=== PATIENT | male | born 1930 | race Hispanic/Latino ===

== ENCOUNTER 2016-06-05 17:36 | Observation (INO) | payer MEDICARE, BC ==
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
[2016-06-05] MEDS ORDERED: Sodium Chloride 0.9% 1,000 ML IV STA (18:05)
[2016-06-05 18:30] LABS: ADD MANUAL DIFF? NO
[2016-06-05 18:53] LABS: ALB/GLOB RATIO 1.2 (1.1-1.8); ALKALINE PHOSPHATASE 93 U/L (38-133); ALT/SGPT 27 U/L (7-56); AST/SGOT 36 U/L (15-59); BILIRUBIN,TOTAL 0.5 mg/dL (0.2-1.3); BLOOD UREA NITROGEN 27 mg/dL (7-21); CALCIUM 8.9 mg/dL (8.4-10.5); CARBON DIOXIDE 27 mmol/L (21-33); CHLORIDE 100 mmol/L (98-107); GFR AFRICAN-AMERICAN > 60; GLUCOSE,RANDOM 89 mg/dL (70-110); POTASSIUM 3.7 mmol/L (3.6-5.0); SODIUM 140 mmol/L (132-148); TOTAL PROTEIN 7.1 g/dL (5.8-8.3)
[2016-06-05 18:59] LABS: BASO # 0.02 K/mm3 (0.0-2.0); BASO % 0.2 % (0.0-3.0); EOS # 0.1 (0.0-0.7); EOS % 0.8 % (1.5-5.0); GRAN # 5.47 (1.4-6.5); GRAN % 62.9 % (50.0-68.0); HEMATOCRIT 42.3 % (42.0-52.0); LYMPH # 2.3 (1.2-3.4); LYMPH % 26.6 % (22.0-35.0); MEAN CELL VOLUME 93.4 fL (80.0-105.0); MEAN CORPUSCULAR HEMOGLOBIN 31.1 pg (25.0-35.0); MEAN CORPUSCULAR HGB CONC 33.3 g/dl (31.0-37.0); MEAN PLATELET VOLUME 10.3 fl (7.0-11.0); MONO # 0.8 (0.1-0.6); MONO % 9.5 % (1.0-6.0); PLATELET COUNT 207 10^3/uL (120.0-450.0); RED CELL DISTRIBUTION WIDTH 14.2 % (11.5-14.5); WHITE BLOOD COUNT 8.7 10^3/ul (4.5-11.0)
[2016-06-05 19:16] LABS: TROPONIN I < 0.01 ng/mL
[2016-06-05 19:17] LABS: PARTIAL THROMBOPLASTIN TIME 44.9 Seconds (23.7-30.8)
[2016-06-05 19:22] LABS: INR 4.51 (0.93-1.08)
[2016-06-05] MEDS ORDERED: Iohexol 350 MG/100 ML VIAL ONE (19:28)
[2016-06-05] MEDS ORDERED: Oxycodone/Acetaminophen 2.5/325 mg Tab PO PRN (21:29)
[2016-06-06 05:31] VITALS: O2SAT 95
[2016-06-06 07:25] LABS: ADD MANUAL DIFF? NO
[2016-06-06 07:30] LABS: BASO # 0.01 K/mm3 (0.0-2.0); BASO % 0.2 % (0.0-3.0); EOS # 0.1 (0.0-0.7); EOS % 1.7 % (1.5-5.0); GRAN # 3.55 (1.4-6.5); GRAN % 59.1 % (50.0-68.0); HEMATOCRIT 40.3 % (42.0-52.0); LYMPH # 1.8 (1.2-3.4); MEAN CELL VOLUME 92.9 fL (80.0-105.0); MEAN CORPUSCULAR HEMOGLOBIN 31.3 pg (25.0-35.0); MEAN CORPUSCULAR HGB CONC 33.7 g/dl (31.0-37.0); MEAN PLATELET VOLUME 9.7 fl (7.0-11.0); MONO # 0.5 (0.1-0.6); PLATELET COUNT 170 10^3/uL (120.0-450.0); RED CELL DISTRIBUTION WIDTH 14.4 % (11.5-14.5)
[2016-06-06 07:54] LABS: INR 4.26 (0.93-1.08)
--- NOTE | 2016-06-06 07:54 | CT ---
PROCEDURE: CT Abdomen and Pelvis with contrast HISTORY: abd pain COMPARISON: 09/02/2014 TECHNIQUE: Contrast dose: 100 mL Omnipaque Radiation dose: Total exam DLP = 465.83 mGy-cm. FINDINGS: LOWER THORAX: Permanent pacemaker. LIVER: Normal size and contour. Scattered nonspecific low-attenuation lesions, 12 mm. No biliary dilatation. GALLBLADDER AND BILE DUCTS: Unremarkable. 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 This is poorly evident on prior noncontrast CT. Mild dilatation of the short segment distal pancreatic duct in tail. No other pancreatic mass. SPLEEN: Multiple hypervascular lesions within spleen, nonspecific. Please note that the examination is obtained during the arterial phase of contrast enhancement and this may be an artifact. Additional evaluation with contrast-enhanced CT during portal phase of enhancement is advised to evaluate for possible hypervascular splenic masses versus artifact. ADRENALS: Unremarkable. No mass. KIDNEYS AND URETERS: Multiple bilateral renal cysts, largest right lower pole, 10 cm. VASCULATURE: No calculus or hydronephrosis. BOWEL: Sigmoid diverticulosis. Diverticulosis of the ascending colon and cecum. No evidence of diverticulitis. Questionable thin-walled gastric diverticulum distended up to 6 x 10 mm on current examination. Consider further evaluation with endoscopy or upper GI series. This arises from the fundal region of the stomach. APPENDIX: Normal appendix. PERITONEUM: Unremarkable. No free fluid. No free air. LYMPH NODES: Unremarkable. No enlarged lymph nodes. BLADDER: Unremarkable. REPRODUCTIVE: Normal prostate. BONES: Severe multilevel lumbar degenerative disc disease. No fracture. OTHER FINDINGS: None. 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 Followup advised with contrast-enhanced CT. Mild dilatation of pancreatic duct in pancreatic tail. Multiple hypervascular splenic lesions. Possible artifact due to arterial phase of enhancement. Recommend re-evaluation with portal venous contrast-enhanced imaging. Possible large gastric diverticulum arising from gastric fundus. Recommend further evaluation with endoscopy or upper GI series. Large bilateral renal cysts. Diverticulosis without evidence of diverticulitis. . Additional minor findings as above. Preliminary interpretation of this examination was reported by Rollbar at 8:02 p.m. on 06/05/2016.. There is discordance of this report with the preliminary interpretation. Pancreatic tail cystic mass was not described in the rib preliminary report of this examination. Question is raised of gastric diverticulum, not discussed in the preliminary report of this examination.
--- NOTE | 2016-06-06 08:29 | RAD ---
HISTORY: cough COMPARISON: 03/06/2015 FINDINGS: LUNGS: No active pulmonary disease. PLEURA: No significant pleural effusion identified, no pneumothorax apparent. CARDIOVASCULAR: Permanent pacemaker OSSEOUS STRUCTURES: No significant abnormalities. VISUALIZED UPPER ABDOMEN: Normal. OTHER FINDINGS: None. IMPRESSION: No active disease.
[2016-06-06 08:35] LABS: ALB/GLOB RATIO 1.1 (1.1-1.8); ALKALINE PHOSPHATASE 104 U/L (38-133); ALT/SGPT 32 U/L (7-56); AST/SGOT 31 U/L (15-59); BILIRUBIN,TOTAL 0.5 mg/dL (0.2-1.3); BLOOD UREA NITROGEN 20 mg/dL (7-21); CALCIUM 8.3 mg/dL (8.4-10.5); CARBON DIOXIDE 25 mmol/L (21-33); CHLORIDE 106 mmol/L (95-110); GFR AFRICAN-AMERICAN > 60; GLUCOSE,RANDOM 85 mg/dL (70-110); POTASSIUM 3.9 mmol/L (3.6-5.0); SODIUM 140 mmol/L (132-148); TOTAL PROTEIN 6.5 g/dL (5.8-8.3)
[2016-06-06] MEDS ORDERED: Levothyroxine 125 MCG TAB PO SCH (10:00)
--- NOTE | 2016-06-06 10:25 | HP ---
The patient was seen in the Emergency Room with rectal bleeding. The patient had abdominal pain. He presented in the Emergency Room with these complaints. The patient is 86 years of age, a white male . He has been seen in this hospital a couple of years ago for unrelated condition, possible syncope. ALLERGIES: EPINEPHRINE. The patient is a full code. PAST MEDICAL HISTORY: Tremors, has history of atrial fibrillation, mitral valve regurgitation. The patient has had glaucoma, history of anticoagulation with Coumadin. The patient also gives a history of hypothyroidism. The patient gives a history of hyperlipidemia. PHYSICAL EXAMINATION: GENERAL: The patient is seen. He is comfortable. He has no acute discomfort at this time. HEAD: Normocephalic. NECK: The thyroid is clinically not enlarged. The carotid pulses are present. The patient's neck d oes not show any lymphadenopathy. LUNGS: Trachea is central. Breath sounds vesicular. No adventitious sounds are heard. CHEST: The breast is within normal limit. Axilla is clear. HEART: Atrial fibrillation with moderate ventricular response. ABDOMEN: Soft. No tenderness. No masses. RECTAL: The patient has no evidence of any bleeding at this time, but patient has questionable hemor rhoids clinically. CENTRAL NERVOUS SYSTEM: The patient is conscious, rational, oriented. Cranial nerves are intact fro m II-XII. The patient's motor and sensory functions are within normal limits. His ambulation is nor mal. The reflexes are normal. BLOOD WORK: The hemoglobin is 13.6. The patient's PT/INR is elevated. The INR was 4.26. The patie nt is on Coumadin as an outpatient. The patient's chemistry: Sodium is 140, GFR is within normal li mits, his calcium is 8.3. No other abnormalities. Chest x-ray is clear. The patient's EKG shows atrial fibrillation. The patient's Coumadin is withheld at this time. The patient will be evaluated by interpreter and translator . The patient, on interrogation, is divulging the fact that he has an appointment at [facility] for an echocardiogram and a carotid Doppler. The patient is also waiting to get prothrombin t nida and INR done, and he does have an consumer education specialist and a eyewear consultant, who evaluates the patient. In past, the patient has had, within a year, a colonoscopy without any pathology. The patient has his tory of possible diverticulosis. The present situation, the patient is considering leaving [facility] and following up with his primary care physician and going for the necessary tests ordered for hi m by his primary care physician. We would agree with the plan. If possible, we will have a gastroen terologist examine the patient prior to discharge. We will give the patient a slip to have a prothro mbin time test tomorrow. MEDICATIONS: Consist of Colace. The patient has amiodarone 200 mg daily, metoprolol 25 mg daily. T he patient is on pantoprazole 40 mg daily, Synthroid 125 mcg daily, Zetia 10 mg daily. The patient is on a heart healthy diet. His condition is clinically stable. Discharge is imminent t miles. The patient will be followed up by his primary care physician. Prabhakar Smallwood MD cc: [phone] TT: 06/06/2016 10:25:05 en
[2016-06-06 12:44] VITALS: BP 132/84; PULSE 90; RESP 20; TEMP 97.5
--- NOTE | 2016-06-06 14:39 | CON ---
DATE: 06/06/2016 REQUESTING PHYSICIAN: Dr. Coats. REASON FOR CONSULTATION: I have been asked to see this 86-year-old male who was admitted to the hosp ital with a 1-day history of rectal bleeding. The patient states that he saw some bright red blood a fter wiping his anus after a bowel movement. There is no blood with the bowel movement. Routine blo od work shows the patient to have an elevated PT/INR of 46.0 and 4.26. The patient last had a colono scopy about a year ago with Dr. Claudia Viera at [facility]. CT scan of the abdom en and pelvis performed here in the hospital revealed diverticulosis of the left colon, large gastric diverticulum as well as a cyst in the tail of the pancreas with some dilatation of the pancreatic du ct. This cyst measured 10 mm and is suggestive of an IPMN. Again, there is some mild dilatation of the distal pancreatic duct. The patient has not had any further rectal bleeding since his hospitaliz ation. He admits to occasional lower abdominal cramps over the last several days. PAST MEDICAL HISTORY: Notable for atrial fibrillation, mitral regurgitation, hypothyroidism, diverti culosis, hyperlipidemia, glaucoma. SOCIAL HISTORY: The patient denies cigarette smoking or alcohol use. FAMILY HISTORY: Noncontributory. REVIEW OF SYSTEMS: A 14-point review of systems is notable for 1 episode of rectal bleeding and lowe r abdominal cramps. PHYSICAL EXAMINATION: GENERAL: Well-developed male lying in bed, in no acute distress. VITAL SIGNS: Reveal temperature of 97.6, heart rate of 100, blood pressure 133/79. HEENT: Reveals sclerae to be white, conjunctivae pink. NECK: Supple. CHEST: Reveals lungs to be clear. HEART: Reveals an irregularly irregular rate. There is a II/ systolic murmur. ABDOMEN: Soft, nontender. EXTREMITIES: Show no edema. RECTAL: Shows the presence of a left lateral external hemorrhoid. There is no blood in the rectal v oracio. There is no mass. LABORATORY DATA: Reveal normal electrolytes. PT is 46, INR 4.26. CBC reveals hemoglobin 13.6, whit e blood cell count 6, platelet count of 170,000. His hemoglobin is stable over the last 12 hours. Again, CT scan of the abdomen and pelvis shows a left-sided colonic diverticulosis, a 6 x 10 cm gastr ic diverticulum, a 10 mm pancreatic cyst with slightly dilated pancreatic duct most likely representi ng an IPMN. IMPRESSION: This is an 86-year-old male with atrial fibrillation, on Coumadin, with 1 episode of bl ood seen after wiping his anus after a bowel movement, with coagulopathy. His PT in the 40s and his INR is in the 4.26 range. He has not had any further bleeding. RECOMMENDATIONS: 1. The patient has been instructed to follow up with his log rafter, Dr. 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 2. He is to follow up with the Coumadin clinic with his digital traffic coordinator, Dr. Norris Ventura. He has been instructed to hold his Coumadin for the next 5 days. No further GI workup is planned at this time. The patient has been instructed to watch closely for any signs of bleeding. Raj Sam MD cc: [phone] TT: 06/06/2016 14:38:21 Confirmation # [id number] Dictation # [id number] mn
--- NOTE | 2016-06-06 15:43 | CARD ---
APPROVED REPORT EKG Measurement Heart [id number] SC 104P [id number] <Conclusion> Electronic ventricular pacemaker
== END 2016-06-06 14:18 | disposition home or self-care (01) ==
LOC: ED 17:36 → ERH 20:05 → INTOOBSV 20:05 → 2RNO 22:54
PROVIDERS: ADMIT Internal Medicine; ATTEND Internal Medicine
DX: K62.5 Hemorrhage of anus and rectum (principal); I48.91 Unspecified atrial fibrillation; I34.0 Nonrheumatic mitral (valve) insufficiency; R25.1 Tremor, unspecified; E03.9 Hypothyroidism, unspecified; E78.5 Hyperlipidemia, unspecified; Z79.01 Long term (current) use of anticoagulants; K57.30 Diverticulosis of large intestine without perforation or abscess without bleeding; K59.00 Constipation, unspecified; I10 Essential (primary) hypertension; R79.1 Abnormal coagulation profile
CPT/HCPCS: 36415; 71010; 74177; 80053; 82550; 83615; 84484; 85025; 85610; 85730; 86850; 86900; 93005; 96361; 96374; 99285; C9113; G0378; J7040; Q9967

== ENCOUNTER 2016-08-13 01:21 | Emergency (ER) | payer MEDICARE, BC ==
[2016-08-13 01:31] VITALS: BMI 15.4
--- NOTE | 2016-08-13 01:41 | ED PDOC ---
Arrival/HPI - General Chief Complaint: Trauma Time Seen by Provider: 08/13/16 01:27 Historian: Patient - History of Present Illness Narrative History of Present Illness (Text): 08/13/16 01:44 An 86 year old male, whose past medical history includes hypertension, Atrial fibrillation and pacemaker, is brought to the emergency department by EMS after falling on his side complaining of left hip and left knee pain an hour ago. Patient reports turning his head today and had a sudden episode of vertigo for about 2 minutes, occurred a few times today. Patient reported saw a doctor today in [place] and a prescription for his vertigo was called into pharmacy but he has not picked it up yet. Patient states that his fall was either mechanical or from the vertigo and denies any lightheadedness or chest pain. Patient notes he hit his head, but currently has no pain. Patient denies any other pain, knee or hip numbness or any other complaints at this time. Time/Duration: 1 hour Symptom Onset: Sudden Symptom Course: Unchanged Activities at Onset: Rest Past Medical History - Provider Review Nursing Documentation Reviewed: Yes - Infectious Disease Hx of Infectious Diseases: None - Tetanus Immunization Tetanus Immunization: Unknown - Cardiac Hx Cardiac Disorders: Yes Hx Atrial Fibrillation: Yes Hx Cardiac Arrhythmia: Yes (a fib) Hx Hypertension: Yes Hx Pacemaker: Yes Other/Comment: EJ SHOWED MVR. EF: 45% - Pulmonary Hx Respiratory Disorders: No - Neurological Hx Neurological Disorder: Yes Hx Dizziness: Yes Hx Transient Ischemic Attacks (TIA): Yes Other/Comment: lumbAr stenosis,SYNCOPE - HEENT Hx HEENT Disorder: Yes Hx Cataracts: Yes Hx Deafness: Yes (rt ear) Hx Glaucoma: Yes (surgery/RIGHT) - Renal Hx Renal Disorder: No - Endocrine/Metabolic Hx Endocrine Disorders: Yes Hx Hypothyroidism: Yes - Hematological/Oncological Hx Blood Disorders: Yes Hx Cancer: Yes (PROSTATE) - Integumentary Hx Dermatological Disorder: Yes Hx Psoriasis: Yes - Musculoskeletal/Rheumatological Hx Falls: Yes - Gastrointestinal Hx Gastrointestinal Disorders: Yes Hx Diverticulitis: Yes - Genitourinary/Gynecological Hx Genitourinary Disorders: Yes Hx Prostate Problems: Yes Other/Comment: prostate ca - Psychiatric Hx Depression: No Hx Emotional Abuse: No Hx Physical Abuse: No Hx Substance Use: No - Past Surgical History Past Surgical History: No Previous - Surgical History Other/Comment: CATARACT SURGERY AND RIGHT GLAUCOMA SX - Anesthesia Hx Anesthesia: Yes Hx Anesthesia Reactions: No Hx Malignant Hyperthermia: No - Suicidal Assessment Feels Threatened In Home Enviroment: No Family/Social History - Physician Review Nursing Documentation Reviewed: Yes Family/Social History: No Known Family HX Smoking Status: Never Smoked Hx Alcohol Use: No Hx Substance Use: No Hx Substance Use Treatment: No Allergies/Home Meds Allergies/Adverse Reactions: Allergies epinephrine Allergy (Verified 08/13/16 01:35) ANAPHYLAXIS Home Medications: Home Meds Medication Instructions Recorded Confirmed Amiodarone HCl 200 mg PO HS 01/07/12 08/13/16 Warfarin [Coumadin] 5 mg PO DAILY 01/07/12 08/13/16 Warfarin [Coumadin] 2.5 mg PO MON 03/23/14 08/13/16 Acetaminophen/Oxycodone Hydr 1 tab PO BID PRN 06/05/16 08/13/16 [Percocet 2.5/325 mg Tab] Docusate [Colace] 100 mg PO PRN PRN 06/05/16 08/13/16 Ezetimibe [Zetia] 10 mg PO HS 06/05/16 08/13/16 Levothyroxine Sodium [Levo-T] 125 mcg PO DAILY 06/05/16 06/05/16 Metoprolol Tartrate [Lopressor] 25 mg PO HS 06/05/16 08/13/16 Review of Systems - Physician Review All systems were reviewed & negative as marked: Yes - Review of Systems Respiratory: absent: SOB Cardiovascular: absent: Chest Pain Musculoskeletal: Other (L hip and L knee pain). absent: Back Pain Physical Exam - Physical Exam Narrative Physical Exam (Text): 08/13/16 01:54 Constitutional: No acute distress. Head: Normocephalic. Atraumatic. Eyes: PERRL. No nystagmus. ENT: Moist mucous membranes. Neck: Supple. Cardiovascular: Regular rate. Chest: No tenderness. Respiratory: Clear to auscultation bilaterally. GI: Soft. Nontender. Nondistended. Back: No CVA tenderness. Lower extremity: no abrasion, ecchymosis, knee/hip tenderness; full ROM; Musculoskeletal: No tenderness or swelling of extremities. Skin: No rash. Neurologic: Alert, no focal deficit. finger to nose intact. heel to fontanez rapid movement intact Vital Signs Reviewed: Yes Vital Signs Temp Pulse Resp BP Pulse Ox 08/13/16 03:39 80 16 110/69 94 L 08/13/16 01:36 98.5 F 80 18 146/86 94 L Temperature: Afebrile Blood Pressure: Normal Pulse: Regular Respiratory Rate: Normal Appearance: Positive for: Well-Appearing, Non-Toxic, Comfortable Pain Distress: None Mental Status: Positive for: Alert and Oriented X 3 Medical Decision Making ED Course and Treatment: 08/13/16 01:39 Impression: An 86 year old male with knee and hip pain after fall from possible episode of syncope. Differential Diagnosis included but are not limited to: Plan: -- CT head w/o contrast -- Xray left hip -- Xray left knee -- Reassess and disposition Prior Visits: Notes and results from previous visits were reviewed. Patient last reported to the emergency department on 06/05/16 for evaluation of BRBPR and mild periumbilical discomfort. Patient was hospitalized for rectal hemorrhage. Patient was discharged on 06/14/16. Progress Notes: knee and hip xray- no acute fracture or dislocation, interpreted by me. CT Head Without Intravenous Contrast FINDINGS: Brain: No intracranial hemorrhage. Ventricles are concordant with sulci and similar in appearance to the previous study. Periventricular hypoattenuation in keeping with chronic ischemic changes again noted. Ventricles: See above. Bones/joints: Unremarkable. No acute fracture. Soft tissues: Unremarkable. Sinuses: Paranasal sinuses are clear. Mastoid air cells: There is redemonstration of possible postoperative changes in the left mastoid region, these are not changed within limits of the study, with no fluid in either mastoid region. Orbits: Patient is status post lens replacements. Other findings: Comparison to previous dated March 07, 2015. IMPRESSION: No fractures. No intracranial hemorrhage. Chronic appearing findings as above. Dictated and Authenticated by: Rosanne Street MD 08/13/2016 2:55 AM Eastern Time ([place] & [place]) Patient had no further vertigo episodes in the ER. Discharged home, f/u PMD, return to ER for any worsening lightheadedness, pain, vomiting, or any other problem. - RAD Interpretation Radiology Orders: 08/13/16 01:42 HEAD W/O CONTRAST [CT] Stat Hip Left [HIP MIN 2V W/ PELVIS LT] [RAD] Stat KNEE LEFT 2 VIEWS (AP & LAT) [RAD] Stat - Medication Orders Current Medication Orders: Discontinued Medications Meclizine HCl (Antivert) 12.5 mg PO STAT STA Stop: 08/13/16 03:25 Last Admin: 08/13/16 03:37 Dose: 12.5 mg - Scribe Statement The provider has reviewed the documentation as recorded by the Mayo Kendrick Provider Scribe Attestation: All medical record entries made by the Scribjoao were at my direction and personally dictated by me. I have reviewed the chart and agree that the record accurately reflects my personal performance of the history, physical exam, medical decision making, and the department course for this patient. I have also personally directed, reviewed, and agree with the discharge instructions and disposition. Disposition/Present on Arrival - Present on Arrival Any Indicators Present on Arrival: No History of DVT/PE: No History of Uncontrolled Diabetes: No Urinary Catheter: No History of Decub. Ulcer: No History Surgical Site Infection Following: Orthopedic Procedures, None - Disposition Have Diagnosis and Disposition been Completed?: Yes Diagnosis: Vertigo Disposition: HOME/ ROUTINE Disposition Time: 02:57 Patient Plan: Discharge Condition: STABLE Discharge Instructions (ExitCare): Benign Paroxysmal Positional Vertigo (ED)
[2016-08-13 01:45] VITALS: PULSE 80; TEMP 98.5; O2SAT 94
--- NOTE | 2016-08-13 02:56 | CT ---
EXAM: CT Head Without Intravenous Contrast CLINICAL HISTORY: 86 years old, male; Pain; Headache; Additional info: Fall TECHNIQUE: Axial computed tomography images of the head/brain without intravenous contrast. This CT exam was performed using one or more of the following dose reduction techniques: automated exposure control, adjustment of the mA and/or kV according to patient size, and/or use of iterative reconstruction technique. EXAM DATE/TIME: Exam ordered 08/13/2016 1:42 AM COMPARISON: CT - HEAD W/O CONTRAST 03/07/2015 11:43:20 AM FINDINGS: Brain: No intracranial hemorrhage. Ventricles are concordant with sulci and similar in appearance to the previous study. Periventricular hypoattenuation in keeping with chronic ischemic changes again noted. Ventricles: See above. Bones/joints: Unremarkable. No acute fracture. Soft tissues: Unremarkable. Sinuses: Paranasal sinuses are clear. Mastoid air cells: There is redemonstration of possible postoperative changes in the left mastoid region, these are not changed within limits of the study, with no fluid in either mastoid region. Orbits: Patient is status post lens replacements. Other findings: Comparison to previous dated March 07, 2015. IMPRESSION: No fractures. No intracranial hemorrhage. Chronic appearing findings as above.
[2016-08-13 03:40] VITALS: BP 110/69; RESP 16
--- NOTE | 2016-08-13 10:00 | RAD ---
HISTORY: fall, hip pain COMPARISON: No prior FINDINGS: BONES: Normal. No fracture. JOINTS: Normal. No osteoarthritis. SOFT TISSUE: Normal. OTHER FINDINGS: None . IMPRESSION: Normal Bone Xray.
--- NOTE | 2016-08-13 10:19 | RAD ---
HISTORY: fall, knee pain COMPARISON: No prior FINDINGS: BONES: Normal. No fracture. JOINTS: Mild degenerative changes. SOFT TISSUE: Normal. OTHER FINDINGS: None . IMPRESSION: No acute fracture
== END 2016-08-13 04:13 | disposition home or self-care (01) ==
LOC: ED 01:21
DX: R42 Dizziness and giddiness (principal); I10 Essential (primary) hypertension; I48.91 Unspecified atrial fibrillation; E03.9 Hypothyroidism, unspecified

== ENCOUNTER 2016-08-13 21:31 | Inpatient (IN) | payer MEDICARE, BC ==
[2016-08-13 21:48] VITALS: BMI 15.3
--- NOTE | 2016-08-13 21:52 | ED PDOC ---
Arrival/HPI - General Chief Complaint: Hip Pain Time Seen by Provider: 08/13/16 21:33 Historian: Patient - History of Present Illness Narrative History of Present Illness (Text): 08/13/16 21:51 Kyrie Calderón is an 86 year old male, whose past medical history includes hypertension, hypothyroidisim, atrial fibrillation, and pacemaker, who presents to the Emergency department brought in by EMS complaining of left hip pain. Patient states yesterday evening he had an episode of sudden dizziness and fell on to his left side while in the bathroom. Patient states he was seen in the Emergency department yesterday after the fall, had CT Head and X-rays performed which were negative and discharged home. Patient states he is unable to ambulate or bear weight on his left extremity secondary to pain.No dizziness presently. Patient states he regularly takes Coumadin and Amiodarone. Patient denies any fever, chills, chest pain, shortness of breath, nausea, vomiting, diarrhea, urinary symptoms, back pain, neck pain, dizziness, or any other complaints. PMD: Dr. Robert Time/Duration: Other (today) Symptom Onset: Gradual Symptom Course: Unchanged Activities at Onset: Light Context: Home Past Medical History - Provider Review Nursing Documentation Reviewed: Yes - Infectious Disease Hx of Infectious Diseases: None - Tetanus Immunization Tetanus Immunization: Unknown - Cardiac Hx Cardiac Disorders: Yes Hx Atrial Fibrillation: Yes Hx Cardiac Arrhythmia: Yes (a fib) Hx Hypertension: Yes Hx Pacemaker: Yes Other/Comment: EJ SHOWED MVR. EF: 45% - Pulmonary Hx Respiratory Disorders: No - Neurological Hx Neurological Disorder: Yes Hx Dizziness: Yes Hx Transient Ischemic Attacks (TIA): Yes Other/Comment: lumbAr stenosis,SYNCOPE - HEENT Hx HEENT Disorder: Yes Hx Cataracts: Yes Hx Deafness: Yes (rt ear) Hx Glaucoma: Yes (surgery/RIGHT) - Renal Hx Renal Disorder: No - Endocrine/Metabolic Hx Endocrine Disorders: Yes Hx Hypothyroidism: Yes - Hematological/Oncological Hx Blood Disorders: Yes Hx Cancer: Yes (PROSTATE) - Integumentary Hx Dermatological Disorder: Yes Hx Psoriasis: Yes - Musculoskeletal/Rheumatological Hx Falls: Yes - Gastrointestinal Hx Gastrointestinal Disorders: Yes Hx Diverticulitis: Yes - Genitourinary/Gynecological Hx Genitourinary Disorders: Yes Hx Prostate Problems: Yes Other/Comment: prostate ca - Psychiatric Hx Depression: No Hx Emotional Abuse: No Hx Physical Abuse: No Hx Substance Use: No - Past Surgical History Past Surgical History: No Previous - Surgical History Other/Comment: CATARACT SURGERY AND RIGHT GLAUCOMA SX - Anesthesia Hx Anesthesia: Yes Hx Anesthesia Reactions: No Hx Malignant Hyperthermia: No - Suicidal Assessment Feels Threatened In Home Enviroment: No Family/Social History - Physician Review Nursing Documentation Reviewed: Yes Family/Social History: No Known Family HX Smoking Status: Never Smoked Hx Alcohol Use: No Hx Substance Use: No Hx Substance Use Treatment: No Allergies/Home Meds Allergies/Adverse Reactions: Allergies epinephrine Allergy (Verified 08/13/16 21:48) ANAPHYLAXIS Home Medications: Home Meds Medication Instructions Recorded Confirmed Amiodarone HCl 200 mg PO HS 01/07/12 08/13/16 Warfarin [Coumadin] 5 mg PO DAILY 01/07/12 08/13/16 Warfarin [Coumadin] 2.5 mg PO MON 03/23/14 08/13/16 Acetaminophen/Oxycodone Hydr 1 tab PO BID PRN 06/05/16 08/13/16 [Percocet 2.5/325 mg Tab] Docusate [Colace] 100 mg PO PRN PRN 06/05/16 08/13/16 Ezetimibe [Zetia] 10 mg PO HS 06/05/16 08/13/16 Levothyroxine Sodium [Levo-T] 125 mcg PO DAILY 06/05/16 08/13/16 Metoprolol Tartrate [Lopressor] 25 mg PO HS 06/05/16 08/13/16 Review of Systems - Physician Review All systems were reviewed & negative as marked: Yes - Review of Systems Constitutional: Normal. absent: Fevers Eyes: Normal ENT: Normal Respiratory: Normal. absent: SOB, Cough Cardiovascular: Normal. absent: Chest Pain Gastrointestinal: Normal. absent: Abdominal Pain, Diarrhea, Nausea, Vomiting Genitourinary Male: Normal. absent: Dysuria, Frequency, Hematuria, Urinary Output Changes Musculoskeletal: Other (+left hip pain) Skin: Normal. absent: Rash Neurological: Dizziness Endocrine: Normal Hemo/Lymphatic: Normal Psychiatric: Normal Physical Exam Vital Signs Reviewed: Yes Vital Signs Temp Pulse Resp BP Pulse Ox 08/13/16 21:45 98.2 F 81 18 112/84 99 Temperature: Afebrile Blood Pressure: Normal Pulse: Regular Respiratory Rate: Normal Appearance: Positive for: Well-Appearing, Non-Toxic, Comfortable Pain Distress: None Mental Status: Positive for: Alert and Oriented X 3 - Systems Exam Head: Present: Atraumatic, Normocephalic Pupils: Present: PERRL Extroacular Muscles: Present: EOMI Conjunctiva: Present: Normal Mouth: Present: Moist Mucous Membranes Neck: Present: Normal Range of Motion. No: Meningeal Signs, MIDLINE TENDERNESS , Paraspinal Tenderness Respiratory/Chest: Present: Clear to Auscultation, Good Air Exchange. No: Respiratory Distress, Accessory Muscle Use Cardiovascular: Present: Normal S1, S2, Irregular Rhythm (Irregular, regular). No: Murmurs Abdomen: Present: Normal Bowel Sounds. No: Tenderness, Distention, Peritoneal Signs Back: Present: Normal Inspection Upper Extremity: Present: NORMAL PULSES Lower Extremity: Present: NORMAL PULSES, Normal ROM, Tenderness (Slight discomfort with flexion of left hip), Neurovascularly Intact, Capillary Refill < 2 s. No: Edema, Cyanosis, Swelling, Erythema, Deformity, Temperature Abnormalties Neurological: Present: GCS=15, CN II-XII Intact, Speech Normal Skin: Present: Warm, Dry, Normal Color. No: Rashes Psychiatric: Present: Alert, Oriented x 3, Normal Insight, Normal Concentration Medical Decision Making ED Course and Treatment: 08/13/16 21:52 Impression: 86 year old male complaining of left hip pain and dizziness. Plan: -- CT Left Lower Extremity -- EKG -- Labs -- Reassess and disposition Prior Visits: Notes and results from previous visits were reviewed. Patient was seen last night for similar complaints. CT Head shows: no fracture, no intracranial hemorrhage, chronic appearing findings. XR Hip/Pelvis shows: normal bone X-ray. XR Left Knee shows: no acute fracture. Pt was d/c home. Progress Notes: reviewed EKG, 100% paced rhythm at 80 bpm. 08/14/16 00:12 Reviewed radiology, CT Left Lower Extremity shows: No acute fracture is seen. Possible mild contusion adjacent to left greater trochanter. Degenerative changes in keeping with patient's age. Presence of peripheral vascular disease and small vessel disease as described. No soft tissue hematoma. 08/14/16 00:[address] Smallwood, who is aware and agrees with plan. Accepts pt in to his service. Pt will go to [facility] observation for hip pain and difficulty ambulating. - Lab Interpretations Lab Results: 08/13/16 23:08 08/13/16 23:08 Lab Results 08/13/16 23:08: WBC 9.1 D, RBC 4.34, Hgb 13.3 L, Hct 39.9 L, MCV 91.9, MCH 30.6 , MCHC 33.3, RDW 14.2, Plt Count 151, MPV 9.8 08/13/16 23:08: Sodium 136, Potassium 4.0, Chloride 102, Carbon Dioxide 29, Anion Gap 9 L, BUN 23 H, Creatinine 1.2, Est GFR ( Amer) > 60, Est GFR ( Non-Af Amer) 58, Random Glucose 85, Calcium 8.8, Total Bilirubin 0.6, AST 26, ALT 37, Alkaline Phosphatase 92, Total Protein 6.2, Albumin 3.4, Globulin 2.8, Albumin/Globulin Ratio 1.2 08/13/16 23:08: PT 41.9 H*, INR 3.88 H*, APTT 45.6 H I have reviewed the lab results: Yes - RAD Interpretation Narrative RAD Interpretations (Text): CT Left Lower Extremity shows: Bones/joints: There is mild diffuse osteopenia. There is marked joint space narrowing in the lateral patellar facet. The bones show no destructive lytic osseous changes, no periosteal reaction. There are moderate degenerative changes in the left hip joint, characterized by moderate joint space loss and adaptive sclerotic changes and mild subchondral cystic change. Small cystic focus lateral to the upper knee possibly a benign sebaceous cyst. No acute fracture. No dislocation. Soft tissues: No hematoma or inflammation no definite abscess possible mild contusion to the left posterior buttock adjacent to the greater trochanter. Vasculature: The vasculature demonstrates diffuse moderate atherosclerotic calcification. There is small vessel calcification present. IMPRESSION: No acute fracture is seen. Possible mild contusion adjacent to left greater trochanter. Degenerative changes in keeping with patient's age. Presence of peripheral vascular disease and small vessel disease as described. No soft tissue hematoma. Radiology Orders: 08/13/16 22:05 EXT LOWER W/O CONTRAST LEFT [CT] Stat Miniature Model Maker: Radiologist - EKG Interpretation Interpreted by ED Physician: Yes Type: 12 lead EKG - Medication Orders Current Medication Orders: Oxycodone/Acetaminophen (Percocet 5/325 Mg Tab) 1 tab PO Q6 TORREY Stop: 08/14/16 11:00 - Scribe Statement The provider has reviewed the documentation as recorded by the Sachiibjoao Travis All medical record entries made by the Sachiibe were at my direction and personally dictated by me. I have reviewed the chart and agree that the record accurately reflects my personal performance of the history, physical exam, medical decision making, and the department course for this patient. I have also personally directed, reviewed, and agree with the discharge instructions and disposition. Disposition/Present on Arrival - Present on Arrival Any Indicators Present on Arrival: No History of DVT/PE: No History of Uncontrolled Diabetes: No Urinary Catheter: No History of Decub. Ulcer: No History Surgical Site Infection Following: Orthopedic Procedures, None - Disposition Have Diagnosis and Disposition been Completed?: Yes Diagnosis: Hip pain, left, Inability to ambulate due to hip Disposition: HOSPITALIZED Disposition Time: 01:33 Patient Plan: Observation Patient Problems: Current Active Problems Problem Status Onset Hip pain, left Acute Inability to ambulate due to hip Acute Condition: STABLE
[2016-08-13 23:18] LABS: HEMATOCRIT 39.9 % (42.0-52.0); MEAN CELL VOLUME 91.9 fL (80.0-105.0); MEAN CORPUSCULAR HEMOGLOBIN 30.6 pg (25.0-35.0); MEAN CORPUSCULAR HGB CONC 33.3 g/dl (31.0-37.0); MEAN PLATELET VOLUME 9.8 fl (7.0-11.0); RED CELL DISTRIBUTION WIDTH 14.2 % (11.5-14.5); WHITE BLOOD COUNT 9.1 10^3/ul (4.5-11.0)
[2016-08-13 23:31] LABS: ALB/GLOB RATIO 1.2 (1.1-1.8); ALKALINE PHOSPHATASE 92 U/L (38-133); ALT/SGPT 37 U/L (7-56); AST/SGOT 26 U/L (15-59); BILIRUBIN,TOTAL 0.6 mg/dL (0.2-1.3); BLOOD UREA NITROGEN 23 mg/dL (7-21); CALCIUM 8.8 mg/dL (8.4-10.5); CARBON DIOXIDE 29 mmol/L (21-33); CHLORIDE 102 mmol/L (98-107); GFR AFRICAN-AMERICAN > 60; GLUCOSE,RANDOM 85 mg/dL (70-110); SODIUM 136 mmol/L (132-148); TOTAL PROTEIN 6.2 g/dL (5.8-8.3)
[2016-08-13 23:35] LABS: PARTIAL THROMBOPLASTIN TIME 45.6 Seconds (23.7-30.8)
[2016-08-13 23:37] LABS: INR 3.88 (0.93-1.08)
[2016-08-14] MEDS: Oxycodone/Acetaminophen 5/325 mg Tab PO SCH ×2 (02:06→05:44)
[2016-08-14] MEDS ORDERED: Oxycodone/Acetaminophen 5/325 mg Tab PO PRN (06:53)
[2016-08-14 07:10] LABS: ADD MANUAL DIFF? NO
[2016-08-14 07:16] LABS: BASO # 0.02 K/mm3 (0.0-2.0); BASO % 0.3 % (0.0-3.0); EOS # 0.2 (0.0-0.7); EOS % 2.7 % (1.5-5.0); GRAN % 60.9 % (50.0-68.0); HEMATOCRIT 38.9 % (42.0-52.0); LYMPH # 1.9 (1.2-3.4); LYMPH % 24.7 % (22.0-35.0); MEAN CELL VOLUME 91.7 fL (80.0-105.0); MEAN CORPUSCULAR HEMOGLOBIN 30.2 pg (25.0-35.0); MEAN CORPUSCULAR HGB CONC 32.9 g/dl (31.0-37.0); MEAN PLATELET VOLUME 9.8 fl (7.0-11.0); MONO # 0.9 (0.1-0.6); MONO % 11.4 % (1.0-6.0); PLATELET COUNT 156 10^3/uL (120.0-450.0); RED CELL DISTRIBUTION WIDTH 14.2 % (11.5-14.5); WHITE BLOOD COUNT 7.5 10^3/ul (4.5-11.0)
[2016-08-14 07:31] LABS: ALB/GLOB RATIO 1.2 (1.1-1.8); ALKALINE PHOSPHATASE 97 U/L (38-133); ALT/SGPT 38 U/L (7-56); AST/SGOT 22 U/L (15-59); BILIRUBIN,TOTAL 0.6 mg/dL (0.2-1.3); BLOOD UREA NITROGEN 21 mg/dL (7-21); CALCIUM 8.8 mg/dL (8.4-10.5); CARBON DIOXIDE 28 mmol/L (21-33); CHLORIDE 103 mmol/L (98-107); GFR AFRICAN-AMERICAN > 60; GLUCOSE,RANDOM 79 mg/dL (70-110); POTASSIUM 3.7 mmol/L (3.6-5.0); SODIUM 137 mmol/L (132-148); TOTAL PROTEIN 6.2 g/dL (5.8-8.3)
[2016-08-14] MEDS: Levothyroxine 125 MCG TAB PO SCH (08:21)
--- NOTE | 2016-08-14 08:47 | CT ---
PROCEDURE: CT of the Left femur. HISTORY: left hip/thigh pain post fall COMPARISON: None available. TECHNIQUE: Contiguous axial images of the left femur were obtained. Coronal and sagittal reformats were generated. This CT exam was performed using one or more of the following dose reduction techniques: Automated exposure control, adjustment of the mA and/or kV according to patient size, and/or use of iterative reconstruction technique. FINDINGS: BONES: Unremarkable. No fracture or focal lesion. Femoral head maintains normal contour. LEFT HIP JOINT: Unremarkable. No dislocation. No degenerative changes. SOFT TISSUES: Mild soft tissue contusion adjacent to the greater trochanter.. IMPRESSION: No fracture.
[2016-08-14] MEDS ORDERED: MethylPREDNISolone Depo 40 mg/ml Inj IM ONE (10:13)
[2016-08-14] MEDS ORDERED: Bupivacaine 0.5% Inj(30mL) IJ ONE (10:13)
--- NOTE | 2016-08-14 12:29 | HP ---
The patient is in the [facility] in [place], room 565, bed 1. The patient was seen in the Emergency Room yesterday. He presented with pain in the left hip. He says he had a sudden syncopal episode and fell down, and he found it difficult to get up, and he complains of pain in his left hip. He was concerned that he might have had a stroke or he might have had hurt his hip , so he came to the Emergency Room to be evaluated. PAST MEDICAL HISTORY: Coronary artery disease. The patient has history of cardiac arrhythmia, atrial fibrillation, hyperlipidemia, previous history of glaucoma, previous history of hypertension. PHYSICAL EXAMINATION: Evaluation in the Emergency Room. VITAL SIGNS: The pulse was 81. The blood pressure was 112/84, respirations 18 , O2 sat 99%. GENERAL: The patient was conscious, rational, oriented 3 times. He appears to be somewhat emaciated, low bodyweight. The patient complains of some glare in his left and right eye. HEAD: Normocephalic. No injuries are noted. NECK: The thyroid is not enlarged, and JVP is flat. No lymphadenopathy is noted in the neck. LUNGS: Trachea is central. The patient's breath sounds are vesicular. No adventitious sounds are heard in the lungs. HEART: The patient is in atrial fibrillation. The patient is on anticoagulation. ABDOMEN: Soft. Liver and spleen not palpable. No tenderness, no masses. CENTRAL NERVOUS SYSTEM: The patient is conscious. He is rational, oriented, and answers all questions. The patient's cranial nerves are intact from II-XII. The patient is able to move all 4 limbs, and he does have pain in his left hip area. The patient's admitting diagnosis is syncope, questionable what type of, atherosclerotic heart disease with cardiac arrhythmia. The patient has a pacemaker. He is on anticoagulation with Coumadin, and his INR was higher than therapeutic. The patient's Coumadin is held until reorder of PT/INR will be done. The patient's neuro evaluation will be done by Dr. Porter, and orthopedic surgeon, Dr. Early, will see the patient to certify evaluation of the left hip as far as his injury is concerned. His prognosis is guarded in view of his diagnosis. His overall clinical status is stable. His vital signs are stable. We will continue his medications. MEDICATIONS: His list of medications - the patient is on Colace 100 mg daily. The patient is on amiodarone 200 mg daily, metoprolol 25 mg at bedtime. The patient is on Percocet for pain, Synthroid 125 mcg once a day, Zetia 10 mg once a day. LABORATORY WORK: Done in the hospital, the hemoglobin is 12.8. The patient's differential is not significantly abnormal. The patient's chemistry: The sugar is 79. The patient's BUN was 23, creatinine 1.2. His GFR is within normal range. His coagulation studies: The PT was 41.9 seconds. INR is 3.88. We will hold the Coumadin until we will repeat his PT/INR. The patient had a CAT scan of the hip, and it did not reveal any fractures. The patient also had a CAT scan of the head, and it does not reveal any significant cerebral pathology. Prabhakar Smallwood MD cc: [id number] TT: 08/14/2016 12:28:32 jn [email or web address]
--- NOTE | 2016-08-14 12:42 | CON ---
DATE: 08/14/2016 An 86-year-old male. Consult requested by Dr. Smallwood. He is a patient that fell approximately 2 days ago at home where he basically lives alone and he complained of hip pain. He was seen in the E R, sent out and came back 2 days later with continued left hip pain. X-rays were within normal limit s, so they did a CAT scan. It showed no fracture, but some local swelling greater trochanter area. Since he has a pacemaker, we cannot do an MRI to evaluate for a stress fracture, but he can walk, but with a mild limp. He does have underlying osteoarthritis on the inferior aspect of the acetabulum, femoral area. He does have some local tenderness to the greater trochanteric bursa, so to help amber rs, we could inject the left hip with Depo-Medrol and Marcaine. If we could abolish the hip pain wit h the injection, that means it was probably a bursitis and contusion. So we did that and we will see how the pain relief is by reevaluating him tomorrow and if this helps, then we could continue therap y. If it does not help, we could always re-x-ray him in a few days, but I will be able to get him ou t of bed now with precautions and ambulate with a walker, partial weightbearing left hip. If he is n ot better, we will get a re-x-ray in a couple of days. FINAL DIAGNOSIS: Left hip pain with a traumatic trochanteric bursitis. Injected with Depo-Medrol an d Marcaine. Jimy Early DO cc: [id number] TT: 08/14/2016 12:41:41 Confirmation # [id number] Dictation # [id number] en
--- NOTE | 2016-08-14 17:10 | CON ---
DATE: 08/14/2016 CHIEF COMPLAINT: Evaluate for fall. SUBJECTIVE: This is an 86-year-old gentleman with a history of cardiac arrhythmia, atrial fibrillati on on Coumadin, history of pacemaker, history of dyslipidemia, hypertension, coronary artery disease and a history of glaucoma who apparently had a vertebral attack while he was in the bathroom and had fallen on the floor, was unsure if he passed out or not, but fell to the floor on his left side. His hip had some left-sided hip pain. He came into the Emergency Room to evaluate. No fractures, but h ad been seen by orthopedics who mentions that her probably has a left hip trochanter bursitis and giv en a Depo-Medrol injection today. Currently, the patient does mention that he had a spinning sensati on of the room prior to his fall, but currently no vertigo symptoms at this time. He is clinically s table, moving all extremities and no headaches at this time. He was slightly dehydrated when he came in and his blood pressure is 99/67 today. PAST MEDICAL HISTORY: History of pacemaker, Afib, cardiac arrhythmias, coronary artery disease, hype rlipidemia, glaucoma and hypertension. REVIEW OF SYSTEMS: A 14-point review of systems is negative except for the HPI. FAMILY HISTORY: Noncontributory. SOCIAL HISTORY: No illicit drug use, smoking, or ETOH abuse. MEDICATIONS: Reviewed via nurses' reconciliation sheet. ALLERGIES: EPINEPHRINE. PHYSICAL EXAMINATION: VITAL SIGNS: Temperature 97.5, pulse rate of 79, blood pressure 122/73, respiratory rate of 18, oxyg en saturation 97% on room air. GENERAL: The patient is sitting up in bed in no acute distress. HEENT: Atraumatic, normocephalic. PERRLA. Extraocular muscles intact. NECK: Supple, no JVD, no adenopathy noted. LUNGS: Clear to auscultation. No adventitious sounds. HEART: S1, S2, normal rate and rhythm. No murmurs, rubs, or gallops. ABDOMEN: Soft, nontender, nondistended. Bowel sounds present. EXTREMITIES: No clubbing, no cyanosis. Peripheral pulses 2+ felt bilaterally. NEUROLOGIC: The patient is alert, oriented to person, place, month and year. Speech is fluent, with out any errors. Cranial nerves II through XII are intact. MOTOR: Slight increased tone throughout. Moves all extremities equally. No pronator drift seen. SENSORY: Light touch, pinprick, proprioception, vibration intact. DTRs are 1+ throughout. COORDINATION: Yahlpn-es-xgfs intact. GAIT: Is deferred for now. LABORATORY DATA: Sodium is 137, potassium , chloride 103, carbon dioxide 28, BUN of 21, creatin ine of 1.1, random glucose of 79. ASSESSMENT AND PLAN: This is an 86-year-old gentleman with a past medical history of hypertension, d yslipidemia, cardiac rhythm, atrial fibrillation, pacemaker, on Coumadin; history of hyperlipidemia a nd coronary artery disease, who presented with questionable syncopal event and had a fall and had a v ertiginous episode prior to the fall and landed on his left hip and had left hip pain and difficulty moving the left leg due to left hip pain. Orthopedic has seen the patient and likely has left trocha nter bursitis, no fracture at this time. At this time, his fall was likely secondary to an acute callie tigo affect superimposed on underlying possible transient cerebral hypoperfusion to the brain causing this near/syncopal event resulting in left hip pain. At this time, recommend: 1. Physical therapy for left hip pain and for his deconditioned state. 2. IV hydration. 3. Avoid sedating medications. 4. Monitor electrolytes and correct accordingly. At this time, continue with current present management. No further neurological workup needed at thi s time. Please reconsult if necessary. Jeremiah Porter MD cc: [id number] TT: 08/14/2016 17:09:57 Confirmation # [id number] Dictation # [id number] dn
--- NOTE | 2016-08-14 18:52 | CARD ---
APPROVED REPORT EKG Measurement Heart [id number] 88P [id number] <Conclusion> Electronic ventricular pacemaker
[2016-08-14 21:40] LABS: INR 3.97 (0.93-1.08)
[2016-08-15 07:59] LABS: ADD MANUAL DIFF? NO
[2016-08-15 08:02] LABS: BASO # 0.01 K/mm3 (0.0-2.0); BASO % 0.1 % (0.0-3.0); EOS # 0.1 (0.0-0.7); EOS % 0.5 % (1.5-5.0); GRAN # 7.25 (1.4-6.5); GRAN % 76.1 % (50.0-68.0); HEMATOCRIT 39.3 % (42.0-52.0); LYMPH # 1.3 (1.2-3.4); MEAN CORPUSCULAR HEMOGLOBIN 30.8 pg (25.0-35.0); MEAN CORPUSCULAR HGB CONC 33.8 g/dl (31.0-37.0); MEAN PLATELET VOLUME 10.3 fl (7.0-11.0); MONO # 0.9 (0.1-0.6); MONO % 9.3 % (1.0-6.0); PLATELET COUNT 177 10^3/uL (120.0-450.0); WHITE BLOOD COUNT 9.5 10^3/ul (4.5-11.0)
[2016-08-15] MEDS: Levothyroxine 125 MCG TAB PO SCH (08:02)
[2016-08-15 08:11] LABS: INR 3.27 (0.93-1.08)
[2016-08-15 08:15] LABS: BLOOD UREA NITROGEN 24 mg/dL (7-21); CALCIUM 8.9 mg/dL (8.4-10.5); CARBON DIOXIDE 27 mmol/L (21-33); CHLORIDE 104 mmol/L (98-107); GFR AFRICAN-AMERICAN > 60; GLUCOSE,RANDOM 84 mg/dL (70-110); POTASSIUM 4.2 mmol/L (3.6-5.0); SODIUM 138 mmol/L (132-148)
--- NOTE | 2016-08-15 09:06 | PN ---
DATE: 08/15/2016 The patient is in the [facility] in [place]. He is in room 565, bed 1. He was admitted with history of syncope. The patient has dizziness ( vertigo). The patient has past history of atherosclerotic heart disease, atrial fibrillation. The patient fell down and hurt his left hip. He has a contusion, and he found it difficult to walk, and he presented himself to the Emergency Room, and he was evaluated and admitted for syncope, injury related to the fall, inability to walk, and this morning, the patient complains of the same symptoms of inability to walk. He lives by himself. He says he is not feeling safe to go home. He needs some help with physical therapy rehabilitation to make his gait and balance, and make him feel improved so that he can take care of himself. He also has history of glaucoma. The patient has history of hypothyroidism, hyperlipidemia. The patient has history of hypertension. This morning, the patient is awake. He is pretty alert. He also complains of his glaucoma. 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 PHYSICAL EXAMINATION: VITAL SIGNS: His pulse is 79. Respirations are 16. Blood pressure 108/74. O2 sat is 97%. HEAD: Normocephalic. No injuries are noted as mentioned. NECK: The thyroid is not enlarged clinically, no lymphadenopathy. JVP is flat. Carotid pulses are present. HEART: Atrial fibrillation, moderate ventricular response. ABDOMEN: Soft. Liver and spleen not palpable. No ascites. No masses. CENTRAL NERVOUS SYSTEM: The patient is conscious. He is rational. He has unstable gait and balance. The patient has no focal neurological deficit that is elicited. His INR is greater than 3, and it was 3.9 yesterday. The patient's Coumadin is held. We will see what his report is this morning, and we will start the Coumadin therapy as needed. MEDICATIONS: The patient's other medications consist of metoprolol 25 mg at night, amiodarone 300 mg daily. The patient is on Synthroid 125 mcg daily, Zetia 10 mg daily, and the patient is on stool softener. LABORATORY DATA: His INR that was done yesterday night was 3.97. In fact, it was higher than the number at the time of admission. The patient is on a heart-healthy diet. He will be evaluated by physical therapy. We will request the patient to get some physical therapy and rehabilitation for gait management and balance, and also therapy to improve his safe ambulation. Dr. Porter has seen the patient - he is a neurologist, and advised him accordingly. The patient's orthopedic surgeon, Dr. Early, gave him an injection of Depo-Medrol to the left hip, but this morning, the patient does say that there is not much improvement with his discomfort and pain. Prabhakar Smallwood MD cc: [id number] TT: 08/15/2016 09:05:20 Confirmation # [id number] Dictation # [id number] jn MTDD
[2016-08-15] MEDS: Latanoprost 2.5 ml Opht Soln OU SCH (21:09)
[2016-08-15] MEDS ORDERED: LUMIGAN OU SCH (22:00)
[2016-08-16 06:56] LABS: INR 3.16 (0.93-1.08)
[2016-08-16] MEDS: Levothyroxine 125 MCG TAB PO SCH (08:28)
--- NOTE | 2016-08-16 08:38 | PN ---
DATE: 08/16/2016 The patient was worked up for left hip pain. He did not get much improvement from a Depo-Medrol inje ction 2 days ago, but he is moving his hip much better and can do a good straight leg raising, good r ross of motion. The more I talked to him, it is not a picture of a hip fracture but more of a contus ion and poor gait from his age. I told him he should always walk with a cane to minimize the chance of fall, because if he fell again, because he is thin, he may fracture; so it is important that he ge ts good therapy to get strength and improve his coordination and decrease his vertigo, and will follo w him closely. But he does not need surgery in this very low likelihood of a left hip fracture, and looks like a good contusion. The alkaline phos is within normal limits. So we should continue thera py. Maybe subacute rehab might be appropriate or TCU before he goes home since he lives alone. Will continue with therapy including stairs. Jimy Early DO cc: [id number] TT: 08/16/2016 08:37:48 Confirmation # [id number] Dictation # [id number] randy
--- NOTE | 2016-08-16 08:51 | PN ---
DATE: 08/16/2016 The patient is in the [facility] in [place], room 565, bed 1. He was admitted the history of syncope, possible vertigo. HISTORY OF PRESENT ILLNESS: The patient had a fall and injured his left hip. He has a contusion of the left hip. He was finding it difficult to walk. He had unstable gait and balance. The patient was admitted for further evaluation and treatment. The patient did have evaluation by orthopedic and also by neurologist. The patient is seen today, he seems to be improved from where he was 2 days ago. PHYSICAL EXAMINATION: VITAL SIGNS: This morning, his pulse is 80, blood pressure 112/79, patient's respirations are 18, O2 sat 97%, temperature 97.9. HEAD: Normocephalic. NECK: Thyroid is not enlarged. Carotid pulses are present. HEART: Atrial fibrillation with moderate ventricular response. LUNGS: Trachea central. Breath sounds vesicular. No adventitious sounds. ABDOMEN: Soft. Liver, spleen not palpable. CENTRAL NERVOUS SYSTEM: The patient is conscious, rational, oriented. Able to answer all questions, and he has many questions that he asks about his condition. The patient is getting physical therapy. His medications will be continued. He is on amiodarone 200 mg daily, metoprolol 25 mg daily. The patient is on Synthroid 125 mcg daily. He is on Xalatan for glaucoma, Zetia for hyperlipidemia. LABORATORY DATA: The patient's blood work is stable. The patient is being evaluated by the physical therapy department for possible subacute rehab. His PT/INR was elevated which will be followed, and we will start Coumadin on the patient after INR is down below 3. At this time, the patient's blood work shows that his INR is at 3.16, that is today. It has decreased from 3.88 to 3.16. So, we could start patient on a lower dose of Coumadin and repeat his INR on a daily basis. In the meantime, he will be evaluated by the physical therapy department and will be placed in subacute rehab. DIAGNOSES: Atherosclerotic heart disease, cerebrovascular disease, dizziness, atrial fibrillation. The patient is on hypertension treatment. The patient gets medication for prevention of cerebrovascular embolism with Coumadin. Prabhakar Smallwood MD cc: [id number] TT: 08/16/2016 08:50:38 Confirmation # [id number] Dictation # [id number] mn KIRIT
[2016-08-16] MEDS: Bacitracin Ointment 30 GM TUBE TOP SCH (14:05)
[2016-08-16] MEDS: Latanoprost 2.5 ml Opht Soln OU SCH (21:25)
[2016-08-17 07:24] LABS: INR 2.36 (0.93-1.08)
--- NOTE | 2016-08-17 08:24 | PN ---
DATE: 08/17/2016 The patient is in the [facility] in [place], room 565, bed 1. The patient was admitted with a history of fall, injury to the left hip, and syncope. The patient has past history of atherosclerotic heart disease and atrial fibrillation. The patient also has clinical evidence of cerebrovascular insufficiency. He has been treated in the hospital for the pain in the left hip. Dr. Early gave him injection of Depo-Medrol to the site. The patient is also being evaluated by physical therapy. The patient needs physical therapy to improve his balance, gait and ambulation. PHYSICAL EXAMINATION: VITAL SIGNS: This morning, pulse is 80, blood pressure 122/82, respirations 20 , O2 sat 95% on room air. HEENT: His head is normocephalic. The patient has evidence of glaucoma and impaired vision. LUNGS: Clinically clear. HEART: Atrial fibrillation. ABDOMEN: Soft. Liver, spleen not palpable. CENTRAL NERVOUS SYSTEM: The patient has no focal neurological deficit at this time. The patient's Coumadin will be reintroduced because patient's INR was higher than therapeutic; it was held for 2 days. The patient's coagulation studies today show that his PT/INR is 2.36. So we will start patient on low dose Coumadin of 2.5 mg and follow up on the PT/INR. We will await further physical therapy and rehabilitation to accept the patient for further rehabilitation. In the meantime, we will order an EEG on the patient because he does manifest some signs of cerebrovascular insufficiency by forgetfulness and repetition. We will do that. Will follow up with the consult with the neurologist and orthopedics. Prabhakar Smallwood MD cc: [id number] TT: 08/17/2016 08:23:31 Confirmation # [id number] Dictation # [id number] randy BETH
[2016-08-17] MEDS: Levothyroxine 125 MCG TAB PO SCH (08:25)
[2016-08-17] MEDS: Bacitracin Ointment 30 GM TUBE TOP SCH (10:51)
[2016-08-17 17:09] VITALS: O2SAT 96
[2016-08-17] MEDS: Latanoprost 2.5 ml Opht Soln OU SCH (21:33)
[2016-08-17] MEDS ORDERED: MOXIFLOXACIN OU SCH (22:00)
[2016-08-18 07:19] LABS: INR 1.84 (0.93-1.08)
[2016-08-18 08:00] VITALS: BP 102/67; PULSE 79; RESP 18; TEMP 97.5
[2016-08-18] MEDS: Levothyroxine 125 MCG TAB PO SCH (08:31)
--- NOTE | 2016-08-18 08:38 | PN ---
DATE: 08/18/2016 The patient is in the [facility] in [place], room 565, bed 1. He was admitted with the history of fall, syncope, history of trauma to the left hip area with a bruise. The patient had difficulty in walking and weakness. The patient's condition this morning, he is awake, lethargic, but alert. The patient asked many questions. He had an EEG done yesterday. PHYSICAL EXAMINATION: VITAL SIGNS: This morning, the pulse is 79, blood pressure 102/67, respirations 18. O2 sat is 96% of oxygen in the room air. The patient's temperature is 97.5. HEAD: Normocephalic. No injuries noted on the head. NECK: There is no change. HEART: The patient has atrial fibrillation with S1, S2 present. The patient has history of mitral regurgitation and mild aortic stenosis from the past study that was done, echocardiogram. The patient has history of glaucoma. The patient has history of hypertension, hyperlipidemia, and the patient has history of syncope in the past too. MEDICATIONS: Colace for constipation amiodarone 300 mg p.o. daily. HOME MEDICATIONS: The patient's metoprolol is 25 mg daily, Synthroid 125 mcg daily. The patient's Zetia is 10 mg daily. A 2-gram sodium heart-healthy diet. The patient is waiting for placement in the transitional care unit for rehabilitation to improve his gait, balance, as well as his ambulation. We will follow up. Prabhakar Smallwood MD cc: [id number] TT: 08/18/2016 08:38:10 Confirmation # [id number] Dictation # [id number] jn KIRIT
[2016-08-18] MEDS: Bacitracin Ointment 30 GM TUBE TOP SCH (10:36)
--- NOTE | 2016-08-19 00:58 | EEG ---
DATE: 08/18/2016 History of syncope. PAST MEDICAL HISTORY: Pacemaker, AFib, coronary artery disease, glaucoma, hyperlipidemia, hypertensi on. MEDICATIONS: Methylprednisolone. DESCRIPTION: Background activity of this tracing was composed of 8 cycles per second, alpha-like act ivity, small amount of beta activity at 16-20 cycles per second was noted in the tracing. Theta acti vity 5-7 cycles per second was noted in the tracing. Drowsiness was composed of mixed beta and theta activity. Photic stimulation does not change the record. No paroxysmal activity was seen in the re cord. IMPRESSION: Bilateral cerebral dysfunction, diffuse. Kasi Porter MD cc: [id number] TT: 08/19/2016 00:57:48 Confirmation # [id number] Dictation # [id number] tn
--- NOTE | 2016-08-19 13:51 | CON ---
DATE: 08/19/2016 The patient was admitted to TCU floor on 08/18/2013. He is an 86-year-old male, first evaluated by me approximately on 08/13/2016 when he came into the hospital. X-rays were suspicious for a fracture. CAT scan showed just bone contusion and he has a pacemaker, so we could not do an MRI. I had to settle for a CAT scan and the CAT scan showed no cortical disruption, so we sent him to therapy. Being that he has a high risk of falling, we had to keep him with a physical therapist to ambulate, protected with a walker. Now, he was discharged from the main hospital and went to the TCU floor on 08/18/2016. He is still at high risk of falling. He has no undue pain of his hip, but he does show signs of improving by ambulating with therapy, protected weightbearing with a walker and we will continue his strengthening exercises and get him to improve his balance. He may need a subacute rehab before he actually goes home. FINAL DIAGNOSIS: muscle weakness and rt hip contusion with pain no fracture . Jimy Early DO cc: [id number] TT: 08/19/2016 12:13:49 Confirmation # [id number] Dictation # [id number] en MTDD
--- NOTE | 2016-09-04 17:57 | DS ---
BRIEF HISTORY: This is an 86-year-old male with history of coronary artery disease, atrial fibrillation, hyperlipidemia, glaucoma and hypertension who presented to the Emergency Room at the [facility] for pain in his left hip. He says he had a sudden syncopal episode and fell down and found it difficult to get up. The patient was concerned that he might have had a stroke, so he came to the Emergency Room. HOSPITAL COURSE: The patient was admitted to the telemetry floor and neurological evaluation with Dr. Porter was ordered, as well as an orthopedic evaluation with Dr. Early for the left hip pain. The patient takes Coumadin for atrial fibrillation. INR was found to be 3.88. His Coumadin was put on hold. CAT scan of the hip was done, which did not reveal any fractures. A CAT scan of the head also did not reveal any acute pathology. The patient was seen by Dr. Porter, who believed that this fall was likely secondary to acute vertigo superimposed on possible transient cerebral hypoperfusion. At this time, they only recommended physical therapy for his hip pain and to avoid sedating medications. No further neurological workup was ordered and as per neurology was not needed at the time. The patient was seen by Dr. Early. The hip was injected with Depo-Medrol. The patient had some improvement in his pain; however, he did not feel as if he could walk on his own. He was started on physical therapy and then admitted to the transitional care unit for further rehabilitation for his pain. The patient was still concerned about his syncopal episode and some memory loss, so an EEG was ordered , which showed bilateral cerebral dysfunction. DISCHARGE DIAGNOSES: Syncope, left trochanter bursitis, hyperlipidemia, atrial fibrillation, contusion of the left hip and hypothyroidism. DISCHARGE MEDICATIONS: Amiodarone 200 mg once a day, Coumadin 5 mg at 6:00 in the evening, Synthroid 125 mcg daily, Lopressor 25 mg daily, Xalatan to the right eye at night, and Zetia 10 mg at night. FOLLOWUP: Patient will be followed up in the transitional care unit. Flower Smallwood MD cc: [id number] TT: 09/04/2016 17:57:00 mn MTDD
== END 2016-08-18 15:22 | DRG 605 ==
LOC: ED 21:31 → ERH 08-14 01:35 → 5RNO 08-14 02:59 → OBSVTOIN 08-15 08:06
PROVIDERS: ADMIT Internal Medicine; ATTEND Internal Medicine
PROC: 3E0U33Z Introduction of Anti-inflammatory into Joints, Percutaneous Approach (ICD-10-PCS; principal; 2016-08-14)
PROC: 3E0U3BZ Introduction of Anesthetic Agent into Joints, Percutaneous Approach (ICD-10-PCS; 2016-08-14)
DX: S70.02XA Contusion of left hip, initial encounter (principal); I67.81 Acute cerebrovascular insufficiency; M70.62 Trochanteric bursitis, left hip; I48.91 Unspecified atrial fibrillation; E86.0 Dehydration; I10 Essential (primary) hypertension; E78.5 Hyperlipidemia, unspecified; R55 Syncope and collapse; H40.9 Unspecified glaucoma; I25.10 Atherosclerotic heart disease of native coronary artery without angina pectoris; R26.2 Difficulty in walking, not elsewhere classified; K59.00 Constipation, unspecified; W19.XXXA Unspecified fall, initial encounter; Z85.46 Personal history of malignant neoplasm of prostate; Z95.0 Presence of cardiac pacemaker; Y92.009 Unspecified place in unspecified non-institutional (private) residence as the place of occurrence of the external cause; Z79.01 Long term (current) use of anticoagulants

== ENCOUNTER 2016-08-18 15:22 | Inpatient (IN) | payer OTHER, BC ==
[2016-08-18 17:00] VITALS: BMI 19.3
--- NOTE | 2016-08-18 19:13 | CON ---
DATE: 08/18/2016 CHIEF COMPLAINT: Followup consultation for fall. HISTORY OF PRESENTING ILLNESS: This is an 86-year-old man with history of cardiac arrhythmia, atrial fibrillation on Coumadin, history of pacemaker, dyslipidemia, hypertension, coronary artery disease, history of glaucoma who had a vertiginous episode prior to the fall and had landed on his left hip a nd developed left hip pain and difficulty moving his left leg due to left hip pain, which orthopedic had seen the patient and had been told that he had some left-sided trochanter bursitis but no acute f racture. At that time, his fall was secondary to acute vertigo superimposed on underlying transient cerebral hypoperfusion to the brain causing near syncopal event which resulted in his left hip pain a nd deconditioned state further. His EEG shows mild bilateral cerebral dysfunction, no epileptiform a ctivity and some increased beta activity. Currently, he is TRCU undergoing physical and occupational therapy for his underlying deconditioned state and left hip pain and for gait imbalance. PAST MEDICAL HISTORY: History of pacemaker, AFib, cardiac arrhythmias, coronary artery disease, hype rlipidemia, glaucoma, hypertension. REVIEW OF SYSTEMS: A 14-point review of systems is negative except for the HPI. SOCIAL HISTORY: No illicit drug use, smoking, or ETOH abuse. MEDICATIONS: Reviewed via nurse's reconciliation sheet. PHYSICAL EXAMINATION: VITAL SIGNS: Temperature 97.5, pulse rate 79, blood pressure 102/67, respiratory rate of 18, oxygen saturation 96% on room air. GENERAL: The patient is sitting up in bed in no acute distress. HEENT: Atraumatic, normocephalic. PERRLA. Extraocular muscles intact. NECK: Supple, no JVD, no adenopathy noted. LUNGS: Clear to auscultation. No adventitious sounds. HEART: S1, S2, normal rate and rhythm. No murmurs, rubs, or gallops. ABDOMEN: Soft, nontender, nondistended. Bowel sounds present. EXTREMITIES: No clubbing, no cyanosis. Peripheral pulses 2+ felt bilaterally. NEUROLOGIC: The patient is alert, oriented to person, place, month and year. Speech is fluent, with out any errors. Cranial nerves II-XII are intact. MOTOR: Slight increased tone throughout. Moves all extremities equally. No pronator drift seen. SENSORY: Light touch, pinprick, proprioception, vibration intact. DEEP TENDON REFLEXES: 1+ throughout. COORDINATION: Cvjcex-ns-tfuj intact. GAIT: Deferred for now. LABORATORIES: No new labs were done today. ASSESSMENT AND PLAN: This is an 86-year-old man with past medical history of hypertension, dyslipide guillermina, cardiac arrhythmias, atrial fibrillation, pacemaker, on Coumadin, history of hyperlipidemia, cor onary artery disease, presented for questionable syncopal event, had a fall, had a vertiginous episod e prior to the fall and had landed on his left hip and had left hip pain and difficulty moving the le ft leg due to left hip pain, was told that he had left trochanteric bursitis per ortho, no fracture. At this time, his fall was likely secondary to an acute vertigo superimposed underlying possible tra nsient cerebral hypoperfusion to the brain causing a near syncopal event resulting in left hip pain w hich led to a left trochanteric bursitis. He is currently in TRCU for underlying gait imbalance and muscle strength and deconditioned state. At this time, recommend: 1. Avoid transient hypoperfusion episodes, avoid transient drops in his blood pressure, keep systoli c at least above 120. 2. Avoid sedating medications. 3. Monitor his electrolytes and correct accordingly. His EEG showed mild bilateral cerebral dysfunc tion and no evidence of any epileptiform activity, no seizure component to this. 4. Continue with physical and occupational therapy for underlying deconditioning and for muscle stre ngthening and coordination and gait. At this time, no further neurological workup from our side. He can follow up as an outpatient. Plea se reconsult as necessary. Will sign off. Jeremiah Porter MD cc: [id number] TT: 08/18/2016 19:12:45 Confirmation # [id number] Dictation # [id number] marta
[2016-08-18] MEDS ORDERED: Home Med 1 UNIT OU SCH (22:00)
[2016-08-18] MEDS: MOXIFLOXACIN OU SCH (22:26)
[2016-08-18] MEDS: Latanoprost 2.5 ml Opht Soln OU SCH (22:27)
[2016-08-19] MEDS: Levothyroxine 125 MCG TAB PO SCH (05:09)
[2016-08-19] MEDS: Bacitracin Ointment 30 GM TUBE TOP SCH (10:20)
--- NOTE | 2016-08-19 11:08 | HP ---
The patient is admitted to the transitional care unit. Reason for this admission is follow up on extended physical therapy to establish balance and gait abnormality to be corrected, the patient's ambulation to be improved. The patient has recent history of syncope, history of fall, history of contusion of the left hip. PAST MEDICAL HISTORY: The patient has past history of atherosclerotic heart disease, mitral regurgitation; aortic valve stenosis, mild. The patient has history of atrial fibrillation. The patient has history of benign prostatic hyperplasia, history of hyperlipidemia, hypothyroidism, cardiac arrhythmia. PHYSICAL EXAMINATION: GENERAL: The patient appears to be very weak and depressed, is lying in bed, responds to questions. VITAL SIGNS: His pulse is 79, blood pressure 106/76, his respirations are 18 per minute. HEAD: Normocephalic. NECK: The thyroid is not enlarged. Carotid pulses are present. The JVP is flat. No lymphadenopathy. LUNGS: Trachea central. Breath sounds vesicular. No adventitious sounds. Respiratory rate is 18. HEART: Atrial fibrillation, weak pulse. No murmurs, no rubs. ABDOMEN: Soft, scaphoid. Liver, spleen not palpable. No ascites. RECTAL: Deferred. CENTRAL NERVOUS SYSTEM: He is conscious, lethargic, slow to respond, but answers all questions and he is very inquisitive about his diagnosis. LABORATORY DATA: On his established blood work, there were no acute findings. MEDICATIONS: The patient is on Colace, stool softener, amiodarone 300 mg daily. The patient is on warfarin 5 mg daily now (we will monitor is PT/INR), his metoprolol is 25 mg daily, Synthroid 125 mcg daily. The patient is on treatment for glaucoma with latanoprost. His hyperlipidemia is treated with Zetia. We will start him on Namenda 5 mg today because his EEG shows evidence of bilateral cerebral dysfunction consistent with degenerative condition of the brain. The patient has no focal neurological deficit at this time. Will follow up with all his medications, physical therapy and rehabilitation. Prabhakar Smallwood MD cc: [id number] TT: 08/19/2016 11:07:39 randy BETH
[2016-08-19 18:49] LABS: INR 1.82 (0.93-1.08)
[2016-08-19] MEDS: Latanoprost 2.5 ml Opht Soln OU SCH (22:06)
[2016-08-19] MEDS: MOXIFLOXACIN OU SCH (22:08)
[2016-08-20] MEDS: Levothyroxine 125 MCG TAB PO SCH (06:29)
--- NOTE | 2016-08-20 09:18 | PN ---
DATE: 08/20/2016 The patient is seen in the transitional care unit of the [facility] in [place], room 317, bed 1. The patient is admitted to the transitional care unit for rehabilitation, deconditioning, improvement of his balance, gait and ambulation. PHYSICAL EXAMINATION: VITAL SIGNS: This morning, the pulse is 75, blood pressure 112/69. HEAD: The patient's head is normocephalic. No additional findings. LUNGS: Clear. HEART: Normal sinus rhythm. ABDOMEN: Soft. Liver, spleen not palpable. CENTRAL NERVOUS SYSTEM: He is conscious, is rationale, oriented. No neurological deficits are noted. The patient has bilateral cerebral dysfunction. He has many questions. At this time, the patient's clinical condition is stable for physical therapy and be able to be discharged after the patient's condition improves. MEDICATIONS: Consist of amiodarone 300 mg daily. The patient is on Colace once daily. The patient is on Coumadin 5 mg p.o. daily, metoprolol 25 mg daily and Synthroid 125 mcg daily. The patient is on eyedrops for glaucoma. The patient is also seen and evaluated by Dr. Early, his orthopedic surgeon, and also Dr. Porter who is a neurologist. His overall prognosis is guarded. His condition is improving. Prabhakar Smallwood MD cc: [id number] TT: 08/20/2016 09:17:19 Confirmation # [id number] Dictation # [id number] jn MTDD
[2016-08-20] MEDS: Bacitracin Ointment 30 GM TUBE TOP SCH (11:03)
[2016-08-20] MEDS: MOXIFLOXACIN OU SCH (21:36)
[2016-08-20] MEDS: Latanoprost 2.5 ml Opht Soln OU SCH (21:36)
[2016-08-21] MEDS: Levothyroxine 125 MCG TAB PO SCH (05:15)
[2016-08-21] MEDS: Bacitracin Ointment 30 GM TUBE TOP SCH (09:09)
[2016-08-21 10:14] LABS: ADD MANUAL DIFF? NO
[2016-08-21 10:16] LABS: BASO # 0.02 K/mm3 (0.0-2.0); BASO % 0.2 % (0.0-3.0); EOS # 0.1 (0.0-0.7); EOS % 1.7 % (1.5-5.0); GRAN # 5.46 (1.4-6.5); GRAN % 67.4 % (50.0-68.0); HEMATOCRIT 40.4 % (42.0-52.0); LYMPH # 1.5 (1.2-3.4); LYMPH % 18.8 % (22.0-35.0); MEAN CELL VOLUME 92.7 fL (80.0-105.0); MEAN CORPUSCULAR HEMOGLOBIN 31.4 pg (25.0-35.0); MEAN CORPUSCULAR HGB CONC 33.9 g/dl (31.0-37.0); MEAN PLATELET VOLUME 9.3 fl (7.0-11.0); MONO % 11.9 % (1.0-6.0); PLATELET COUNT 168 10^3/uL (120.0-450.0); RED CELL DISTRIBUTION WIDTH 13.9 % (11.5-14.5); WHITE BLOOD COUNT 8.1 10^3/ul (4.5-11.0)
--- NOTE | 2016-08-21 10:24 | PN ---
DATE: 08/21/2016 The patient is in the [facility] transitional care unit, room 317 , bed 1. The patient is admitted with syncope, fall, history of injury to the left hip. The patient has pain, unable to walk. The patient is getting physical therapy. PHYSICAL EXAMINATION: VITAL SIGNS: This morning, the pulse is 80, blood pressure 120/81. Respirations are 18 per minute. GENERAL: The patient is seen sitting up. HEAD: Normocephalic. LUNGS: Trachea is central. Breath sounds are vesicular. HEART: Atrial fibrillation with moderate ventricular response. ABDOMEN: Soft. Liver and spleen not palpable. No tenderness, no focal localizing signs in the abdomen. CENTRAL NERVOUS SYSTEM: The patient is conscious, rational, oriented. The cranial nerves are intact. The patient has dizziness. The patient has glaucoma , vision difficulty. The patient has balance difficulty, and physical therapy is being provided to the patient to get him ambulating properly and able to stand without any possibility of falling down. MEDICATIONS: Colace 100 mg daily. The patient is on amiodarone 300 mg daily, warfarin 5 mg daily, metoprolol 25 mg daily, Synthroid 125 mcg daily. LABORATORY DATA: The lab work is stable. His prothrombin time - we will have to repeat the PT/INR. The last PT/INR is on the 9th. So we will need to have one done today, and we will currently continue 5 mg of Coumadin. His diet is heart-healthy diet. Prabhakar Smallwood MD cc: [id number] TT: 08/21/2016 10:23:42 Confirmation # [id number] Dictation # [id number] jn MTDD
[2016-08-21 10:27] LABS: INR 2.46 (0.93-1.08)
[2016-08-21] MEDS: Latanoprost 2.5 ml Opht Soln OU SCH (21:32)
[2016-08-21] MEDS: MOXIFLOXACIN OU SCH (21:36)
[2016-08-22] MEDS: Levothyroxine 125 MCG TAB PO SCH (05:52)
[2016-08-22] MEDS: Bacitracin Ointment 30 GM TUBE TOP SCH (09:12)
--- NOTE | 2016-08-22 10:56 | PN ---
DATE: 08/22/2016 The patient is in the transitional care unit, room 378, bed 1. The patient is admitted for rehabilitation, improvement of balance, gait. The patient is admitted to the transitional care unit from the acute floor after being admitted for a syncopal episode, fall, history of injury to the left hip. There is no evidence of fracture. The patient is seen by Dr. Early, the orthopedic surgeon, and he is following up regarding the injury to the hip area and the bursitis that is secondary to the trauma. The patient has got steroid injection to that side. He is receiving local treatment also. The patient is seen by Dr. Porter, the neurologist, for neurological concerns regarding syncope, possible stroke and TIA. PHYSICAL EXAMINATION: VITAL SIGNS: This morning, pulse is 80, atrial fibrillation, blood pressure 130 /73. The patient's respirations are 18, O2 sat 98% on room air. HEAD: Normocephalic. NECK: There is no abnormality noted. Thyroid is not enlarged. The patient is taking Synthroid. LUNGS: Trachea central. Breath sounds vesicular. No adventitious sounds. HEART: Atrial fibrillation, moderate ventricular response. The heart rate is 80 per minute in spite of the fact that the patient is on amiodarone 300 mg and Lopressor 25 mg daily. ABDOMEN: Soft. Liver, spleen not palpable. CENTRAL NERVOUS SYSTEM: No focal deficit noted at this time excepting the patient has difficulty in maintaining balance, he says. He feels dizzy from time to time. MEDICATIONS: List shows that he is on Synthroid 25 mcg, Coumadin 5 mg daily. The patient is on medications for glaucoma, which is latanoprost. The patient is on Zetia 10 mg daily. The patient has multiple questions daily about his illness, but he has been advised that he should get the advice from the orthopedic surgeon and the neurologist and continue with therapy until he is stable enough to go home. Prabhakar Smallwood MD cc: [id number] TT: 08/22/2016 10:55:07 Confirmation # [id number] Dictation # [id number] MTDD
[2016-08-22] MEDS: Latanoprost 2.5 ml Opht Soln OU SCH (22:11)
[2016-08-22] MEDS: MOXIFLOXACIN OU SCH (22:15)
[2016-08-23] MEDS: Levothyroxine 125 MCG TAB PO SCH (07:00)
[2016-08-23] MEDS: Bacitracin Ointment 30 GM TUBE TOP SCH (10:24)
--- NOTE | 2016-08-23 10:45 | PN ---
DATE: 08/23/2016 The patient is in the transitional care unit, room 317, bed 1. He was admitted for rehabilitation after history of syncopal episode, injury to the left hip. The patient has past history of hypertension, atherosclerotic heart disease, atrial fibrillation, benign prostatic hyperplasia, glaucoma, hyperlipidemia and cardiac arrhythmia. The patient is visited. The patient is asleep and he appears to be comfortable. The nurses do not give any significant report. PHYSICAL EXAMINATION: VITAL SIGNS: As mentioned, pulse is 80, blood pressure 160/68, his respirations are 15, O2 sat is 95% on room air. LUNGS: Clear. HEART: Atrial fibrillation. ABDOMEN: Soft. Liver, spleen not palpable. CENTRAL NERVOUS SYSTEM: He is conscious. He has some dizziness he says when he sits up, but I have not questioned him today. His blood work and medications remain the same. His condition is improving. He gets physical therapy to improve on his ambulation, balance and gait. Prabhakar Smallwood MD cc: [id number] TT: 08/23/2016 10:45:04 Confirmation # [id number] Dictation # [id number] tn MTDD
[2016-08-23] MEDS: MOXIFLOXACIN OU SCH (22:05)
[2016-08-23] MEDS: Latanoprost 2.5 ml Opht Soln OU SCH (22:06)
[2016-08-24] MEDS: Levothyroxine 125 MCG TAB PO SCH (05:27)
[2016-08-24 07:21] LABS: INR 2.61 (0.93-1.08)
[2016-08-24] MEDS: Bacitracin Ointment 30 GM TUBE TOP SCH (10:45)
--- NOTE | 2016-08-24 11:49 | PN ---
DATE: 08/24/2016 SUBJECTIVE: This is coverage for Dr. Smallwood. The patient is seen in room 317, bed 1. The patie nt is seen lying in the bed. The patient is comfortable. Overnight nurse's notes were reviewed. Ac cording to the nurses' note, the patient refused Lopressor yesterday. The patient is complaining of left hip pain and back pain. REVIEW OF SYSTEMS: A 13 system review was negative. PHYSICAL EXAMINATION: VITAL SIGNS: T-max 97.3, heart rate 80-79-81, blood pressure is , 123/79, 126/85, respiration 20, O2 sat 100%. HEAD: Normocephalic, atraumatic. HEENT: Shows pink conjunctivae, anicteric sclerae. No oropharyngeal lesion. NECK: No neck rigidity. CHEST: Kyphosis. LUNGS: Shows no rales, crackles, or wheezing. CARDIOVASCULAR: S1, S2, regular rhythm, with positive systolic murmur left sternal border, right sec ond intercostal space, left second intercostal space and right second intercostal space. The patient has a pacemaker in the left upper chest noted. ABDOMEN: Soft, positive bowel sounds. GENITALIA: Male. RECTAL: Deferred. EXTREMITIES: Shows no pitting edema, no calf tenderness, no Homans signs. MUSCULOSKELETAL: Shows a body mass index of 19.3. VASCULAR: No pitting edema, no calf tenderness, no Homans' sign noted. No clubbing, cyanosis noted. VASCULAR: Palpable pulses. DIAGNOSTICS: The patient's PT/INR is 28.2, INR 2.61. No other diagnostic data available. IMPRESSION AND PLAN: 1. Deconditioning. 2. Gait dysfunction. 3. Left hip pain and lumber spine pain and lumbar spine degenerative disk disease. 4. Atrial fibrillation, Coumadin dependent. 5. Permanent pacemaker implant. 6. Cardiomyopathy with left ventricular ejection fraction of 31%. 7. Moderate concentric left ventricular hypertrophy. 8. Moderate to severe mitral regurgitation. 9. Mild tricuspid regurgitation. 10. Concentric left ventricular hypertrophy. 11. Moderate to severe mitral regurgitation. 12. Left hip pain and lumbar spine pain. 13. Left hip trochanteric bursitis. 14. Bilateral cerebral dysfunction. 15. Dyslipidemia. 16. Permanent pacemaker implant with Coumadin dependent atrial fibrillation. 17. History of coronary artery disease and possible ischemic cardiomyopathy. 18. Mild normocytic anemia. 19. Constipation. 20. Hypothyroidism. 21. Mild normocytic anemia. 22. Gait dysfunction. PLAN: At this time, patient is to be continued on the transitional care unit stay. The patient has been seen by neurology. Their recommendation is noted. The patient is awaiting orthopedic evaluatio n by Dr. Jimy Early. CURRENT MEDICATIONS: 1. Bacitracin ointment. 2. Colace 100 mg daily. 3. Amiodarone 300 mg at bedtime. 4. Coumadin 5 mg daily. 5. Lidoderm 5% patch started to the hip area and back area. 6. Lopressor 25 mg at bedtime. 7. Synthroid 125 mcg daily. 8. Xalatan eyedrops. 9. Zetia 10 mg at bedtime. The patient is on heart healthy diet. The patient is on physical therapy, occupational therapy. The patient will be ordered out of bed to chair. The patient will be continued on TCU stay until approv ed number of days. Dictated and electronically signed, not read. Ash Scott MD cc: [id number] TT: 08/24/2016 11:48:24 Confirmation # [id number] Dictation # [id number] jn
[2016-08-24] MEDS: Lidocaine 5% Patch TD SCH (12:22)
[2016-08-24] MEDS: Latanoprost 2.5 ml Opht Soln OU SCH (21:26)
[2016-08-24] MEDS: MOXIFLOXACIN OU SCH (21:28)
[2016-08-25] MEDS: Levothyroxine 125 MCG TAB PO SCH (05:50)
[2016-08-25] MEDS: Bacitracin Ointment 30 GM TUBE TOP SCH (11:16)
[2016-08-25] MEDS: Lidocaine 5% Patch TD SCH (11:17)
[2016-08-25 17:04] VITALS: RESP 18
--- NOTE | 2016-08-25 18:29 | PN ---
DATE: 08/25/2016 The patient is seen today ambulating with physical therapy with a cane. The patient states that his left hip and back pain is slightly improved. The patient does not appear to be in pain at this time. The patient is alert, awake, oriented x 3. Overnight nurse's notes were reviewed. REVIEW OF SYSTEMS: A 13-system review was done. Pertinent positive and negative dictated above. PHYSICAL EXAMINATION: VITAL SIGNS: Afebrile, heart rate 79, blood pressure 124/84. The patient was seen between the hours of 10:00 a.m. and 11:00 a.m. HEAD: Normocephalic, atraumatic. HEENT: Shows pinkish, pale conjunctivae. Anicteric sclerae. No oropharyngeal lesion. NECK: No neck rigidity. CHEST: Kyphosis. LUNGS: Shows no rales, crackles, or wheezing. CARDIOVASCULAR: S1, S2. Regular rhythm. Positive systolic murmur left sternal border, right second intercostal space. ABDOMEN: Soft, positive bowel sounds. GENITALIA: Male. RECTAL: Deferred. EXTREMITIES: Shows no pitting edema, no calf tenderness, no Homans' sign. NEUROLOGIC: The patient is alert, awake, oriented x 3. Motor strength is 5/5 in upper and lower ext remity. Gait examination is according to physical therapist. According to the physical therapist, monica lion has been doing stairs and ____. DIAGNOSTICS: None from today. IMPRESSION AND PLAN: 1. Gait dysfunction. 2. Deconditioning. 3. Transient episodic hypotension. 4. Left hip pain and lumbar spine pain. 5. Normocytic anemia. 6. Coumadin dependent atrial fibrillation. 7. Gait dysfunction. PLAN: At this time, patient's medications will be continued as per the MAR of today which was review ed. The patient will be continued on transitional care unit with physical therapy, outpatient physical therapist apy, ambulation therapy, and gait training. The patient will be continued on transitional care unit ____. Dictated and electronically signed, not read. Ash Scott MD cc: [id number] TT: 08/25/2016 18:28:29 Confirmation # [id number] Dictation # [id number] sn
[2016-08-25] MEDS: Latanoprost 2.5 ml Opht Soln OU SCH (21:51)
[2016-08-25] MEDS: MOXIFLOXACIN OU SCH (21:51)
[2016-08-25 21:54] VITALS: PULSE 80
[2016-08-26] MEDS: Levothyroxine 125 MCG TAB PO SCH (05:06)
--- NOTE | 2016-08-26 08:59 | PN ---
FINAL PROGRESS NOTE AND DISCHARGE SUMMARY DATE: 08/26/2016 The patient is seen in room 317, bed 1. The patient is lying in the bed. The patient is comfortable. The patient states that he has not been seen by the neurologist and orthopedics. The patient had orthostasis done, which shows a decrease in the blood pressure. At present, the patient is lying in the bed. PHYSICAL EXAMINATION: VITAL SIGNS: T-max 97.7, pulse 80, blood pressure 112/69, 120/75, 124/84, respiration 18, O2 sat 97. HEAD: Normocephalic, atraumatic. HEENT: Shows pinkish, pale conjunctivae, anicteric sclerae. No oropharyngeal lesion. NECK: No neck rigidity. CHEST: Shows kyphosis. Positive left upper chest pacemaker noted. CARDIOVASCULAR: S1, S2. Regular rhythm. Positive systolic murmur left sternal border, right 2nd intercostal space. ABDOMEN: Soft, positive bowel sounds. GENITALIA: Male. RECTAL: Deferred. EXTREMITIES: Shows no pitting edema, no calf tenderness, no Homans' sign. NEUROLOGIC: The patient is alert, awake, oriented x 3. Cranial nerves II-XII intact. Gait examination not tested. Motor strength is 5/5 in upper and lower extremity. VASCULAR: Palpable pulses. DIAGNOSTICS: None from today. Last PT/INR is 28.2, INR 2.6. The patient seen by physical therapist yesterday. They recommend continue PT home with services. At this time, the patient is requesting to be seen again by neurologist and orthopedics. I have requested communication with the nurses to notify above consultants of the further consults. Consults have been ordered since 08/18. CURRENT MEDICATIONS: Bacitracin ointment, Colace 100 mg daily, Coumadin 5 mg daily, Lidoderm 5% patch to the hip and back area, Lopressor 25 mg at bedtime, hold for systolic blood pressure less than or equal to 100, amiodarone 300 mg at bedtime, hold for systolic blood pressure less than or equal to 100. The patient is started on midodrine 2.5 mg 3 times a day, Synthroid 125 mcg daily, Xalatan eye drops, Zetia 10 mg daily. FINAL IMPRESSION & PLAN AND DISCHARGE DIAGNOSES: 1. Deconditioning. 2. Gait dysfunction. 3. Hypotension. 4. Orthostatic hypotension. 5. Coumadin dependent atrial fibrillation. 6. Dyslipidemia. 7. Vertigo. 8. History of mechanical fall. 9. Left hip trochanter bursitis. 10. Bilateral cerebral dysfunction. 11. Left hip pain and lumber spine pain. 12. Permanent pacemaker implant. 13. Questionable syncope/near syncope. 14. Vertigo. PLAN: As discussed above. At present, patient will continue on the transitional care unit until . PATIENT CLEARED FOR DISCHARGED BY POWER REGULATOR FOLLOW UP DR.WIGNA HAILE WITHIN 1 WEEK DISCHARGE MEDS PER AMBULATORY ORDERS AND RESUME ALL HOME MEDS TIME SPENT IN DISCHARGE PROCESS >45 MINUTES. Dictated and electronically signed, not read. Ash Scott MD cc: [id number] TT: 08/26/2016 08:58:29 Confirmation # [id number] Dictation # [id number] bam BETH
[2016-08-26] MEDS: Lidocaine 5% Patch TD SCH (09:43)
[2016-08-26] MEDS: Bacitracin Ointment 30 GM TUBE TOP SCH (09:45)
[2016-08-26 10:30] VITALS: BP 87/61; TEMP 98.3; O2SAT 98
== END 2016-08-26 16:24 | disposition home or self-care (01) | DRG 556 ==
LOC: TRCU 15:22
PROVIDERS: ADMIT Internal Medicine; ATTEND Internal Medicine
PROC: F07Z9FZ Gait Training/Functional Ambulation Treatment using Assistive, Adaptive, Supportive or Protective Equipment (ICD-10-PCS; principal; 2016-08-20)
PROC: F07L6ZZ Therapeutic Exercise Treatment of Musculoskeletal System - Lower Back / Lower Extremity (ICD-10-PCS; 2016-08-20)
PROC: F08Z4FZ Home Management Treatment using Assistive, Adaptive, Supportive or Protective Equipment (ICD-10-PCS; 2016-08-21)
DX: R26.2 Difficulty in walking, not elsewhere classified (principal); S79.8 Other specified injuries of hip and thigh; I42.9 Cardiomyopathy, unspecified; I48.91 Unspecified atrial fibrillation; I08.3 Combined rheumatic disorders of mitral, aortic and tricuspid valves; D64.9 Anemia, unspecified; H40.9 Unspecified glaucoma; I25.10 Atherosclerotic heart disease of native coronary artery without angina pectoris; I10 Essential (primary) hypertension; M70.62 Trochanteric bursitis, left hip; N40.0 Benign prostatic hyperplasia without lower urinary tract symptoms; K59.00 Constipation, unspecified; E03.9 Hypothyroidism, unspecified; E78.5 Hyperlipidemia, unspecified; R42 Dizziness and giddiness; I95.1 Orthostatic hypotension; W19.XXXD Unspecified fall, subsequent encounter; Z79.01 Long term (current) use of anticoagulants; Z95.0 Presence of cardiac pacemaker

== ENCOUNTER 2017-02-10 08:27 | Inpatient (IN) | payer MEDICARE, BC ==
[2017-02-10 08:29] VITALS: BMI 18.6
--- NOTE | 2017-02-10 08:51 | ED PDOC ---
Arrival/HPI - General Chief Complaint: Abnormal Labs Time Seen by Provider: 02/10/17 08:28 Historian: Patient - History of Present Illness Narrative History of Present Illness (Text): 02/10/17 08:47 An 86 year old male, whose past medical history includes hypertension, hypothyroidisim, atrial fibrillation, left hip surgery (12/27), and pacemaker, presents to the emergency department after being advised by his PMD to come in for evaluation for his INR levels. The patient states that his INR was reported to be 14. The patient denies fevers, chills, headache, dizziness, chest pain, shortness of breath, dyspnea on exertion, cough, abdominal pain, nausea, vomiting, diarrhea, back pain, neck pain, urinary/bowel changes, bleeding or any other complaint. PMD: Dr. Vito Hogue ([place]) Time/Duration: Prior to Arrival Symptom Onset: Sudden Symptom Course: Unchanged Activities at Onset: Light Context: Home Past Medical History - Provider Review Nursing Documentation Reviewed: Yes - Infectious Disease Hx of Infectious Diseases: None - Tetanus Immunization Tetanus Immunization: Unknown - Cardiac Hx Cardiac Disorders: Yes (Afib; PAcemaker) Hx Hypertension: Yes - Pulmonary Hx Respiratory Disorders: No - Neurological Hx Neurological Disorder: Yes Hx Dizziness: Yes Hx Transient Ischemic Attacks (TIA): Yes Other/Comment: lumbAr stenosis,SYNCOPE - HEENT Hx HEENT Disorder: Yes Hx Cataracts: Yes Hx Deafness: Yes (rt ear) Hx Glaucoma: Yes (surgery/RIGHT) - Renal Hx Renal Disorder: No - Endocrine/Metabolic Hx Hypothyroidism: Yes - Hematological/Oncological Hx Blood Disorders: Yes Hx Cancer: Yes (PROSTATE) - Integumentary Hx Dermatological Disorder: Yes Hx Psoriasis: Yes - Musculoskeletal/Rheumatological Hx Falls: Yes - Gastrointestinal Hx Gastrointestinal Disorders: Yes Hx Diverticulitis: Yes - Genitourinary/Gynecological Hx Genitourinary Disorders: Yes - Psychiatric Hx Depression: No Hx Emotional Abuse: No Hx Physical Abuse: No Hx Substance Use: No - Past Surgical History Past Surgical History: No Previous - Surgical History Other/Comment: CATARACT SURGERY AND RIGHT GLAUCOMA SX - Anesthesia Hx Anesthesia: Yes Hx Anesthesia Reactions: No Hx Malignant Hyperthermia: No - Suicidal Assessment Feels Threatened In Home Enviroment: No Family/Social History - Physician Review Nursing Documentation Reviewed: Yes Family/Social History: No Known Family HX Smoking Status: Never Smoked Hx Alcohol Use: No Hx Substance Use: No Hx Substance Use Treatment: No Allergies/Home Meds Allergies/Adverse Reactions: Allergies epinephrine Allergy (Verified 08/24/16 23:05) ANAPHYLAXIS Home Medications: Home Meds Medication Instructions Recorded Confirmed Amiodarone HCl 300 mg PO HS 01/07/12 02/10/17 Warfarin [Coumadin] 5 mg PO DAILY 01/07/12 02/10/17 Acetaminophen/Oxycodone Hydr 1 tab PO Q4 PRN 06/05/16 02/10/17 [Percocet 2.5/325 mg Tab] Docusate [Colace] 100 mg PO PRN PRN 06/05/16 02/10/17 Atorvastatin [Lipitor] 10 mg PO HS 02/10/17 02/10/17 Bimatoprost [Lumigan 2.5 ml] 2.5 ml OU HS 02/10/17 02/10/17 Fluticasone Nasal [Flonase] 1 puff NS DAILY 02/10/17 02/10/17 Lisinopril [Zestril] 10 mg PO DAILY 02/10/17 02/10/17 Midodrine [Proamatine] 5 mg PO TID 02/10/17 02/10/17 Review of Systems - Physician Review All systems were reviewed & negative as marked: Yes - Review of Systems Constitutional: absent: Fevers, Night Sweats Respiratory: absent: SOB Cardiovascular: absent: Chest Pain, SIERRA Gastrointestinal: absent: Abdominal Pain, Stool Changes, Diarrhea, Nausea, Vomiting Genitourinary Male: absent: Urinary Output Changes Musculoskeletal: absent: Back Pain, Neck Pain Neurological: absent: Headache, Dizziness Hemo/Lymphatic: Other (Sent by PMD for INR level of 14) Physical Exam Vital Signs Reviewed: Yes Vital Signs Temp Pulse Resp BP Pulse Ox 02/10/17 12:33 83 18 115/63 97 02/10/17 12:20 115/63 02/10/17 11:00 80 20 105/60 97 02/10/17 10:57 105/60 02/10/17 08:27 98.1 F 80 18 127/66 98 Temperature: Afebrile Blood Pressure: Normal Pulse: Regular Respiratory Rate: Normal Appearance: Positive for: Well-Appearing, Non-Toxic Pain Distress: None Mental Status: Positive for: Alert and Oriented X 3 - Systems Exam Head: Present: Atraumatic, Normocephalic Pupils: Present: PERRL Extroacular Muscles: Present: EOMI Conjunctiva: Present: Normal Mouth: Present: Moist Mucous Membranes Neck: Present: Normal Range of Motion Respiratory/Chest: Present: Clear to Auscultation, Good Air Exchange. No: Respiratory Distress, Accessory Muscle Use Cardiovascular: Present: Regular Rate and Rhythm, Normal S1, S2. No: Murmurs Abdomen: Present: Normal Bowel Sounds. No: Tenderness, Distention, Peritoneal Signs Back: Present: Normal Inspection Upper Extremity: Present: Normal Inspection. No: Cyanosis, Edema Lower Extremity: Present: Normal Inspection. No: Edema Neurological: Present: GCS=15, CN II-XII Intact, Speech Normal Skin: Present: Warm, Dry, Normal Color. No: Rashes Psychiatric: Present: Alert, Oriented x 3, Normal Insight, Normal Concentration Medical Decision Making ED Course and Treatment: 02/10/17 08:53 Impression: An 86 year old male was advised to come to the emergency department by his PMD for INR level of 14. Plan: -- EKG -- Chest X-ray -- Urinalysis -- Labs -- Vitamin K -- Reassess and disposition Prior Visits: Notes and results from previous visits were reviewed. Patient was last seen in the emergency department on 08/13/2016. The patient was seen in the emergency department with a complaint of left hip pain. The patient was hospitalized. Progress Notes: EKG: Ordered, reviewed, and independently interpreted the EKG. Rate : 80 BPM Rhythm : Paced Rhythm CHEST X-RAY Dictator : Jimy Benson MD Report Date : 02/10/2017 10:10:10 IMPRESSION: Patchy infiltrate at the right lung base - Lab Interpretations Lab Results: 02/10/17 08:45 02/10/17 08:45 Lab Results 02/10/17 08:52: Lactate Dehydrogenase 590, Total Creatine Kinase < 20 L, Troponin I 0.02 D, NT-Pro-B Natriuret Pep 2490 H 02/10/17 08:45: Free T4 2.33 H, Thyroxine (T4) 6.9, TSH 3rd Generation 3.20 02/10/17 08:45: Triglycerides 169 H, Cholesterol 146, LDL Cholesterol Direct 76 , HDL Cholesterol 28 L 02/10/17 08:45: Sodium 137, Potassium 4.1, Chloride 100, Carbon Dioxide 27, Anion Gap 14, BUN 29 H, Creatinine 1.0, Est GFR ( Amer) > 60, Est GFR ( Non-Af Amer) > 60, Random Glucose 86, Calcium 9.0, Total Bilirubin 0.9, AST 30, ALT 41, Alkaline Phosphatase 110, Total Protein 6.9, Albumin 3.3, Globulin 3.5, Albumin/Globulin Ratio 0.9 L 02/10/17 08:45: PT 114.5 H, INR 9.93 H*, APTT 62.0 H 02/10/17 08:45: WBC 15.7 H D, RBC 4.12, Hgb 12.2 L, Hct 38.2 L, MCV 92.7, MCH 29.6, MCHC 31.9, RDW 15.0 H, Plt Count 224, MPV 8.7, Gran % 81.3 H, Lymph % ( Auto) 10.5 L, Early % (Auto) 7.8 H, Eos % (Auto) 0.3 L, Baso % (Auto) 0.1, Gran # 12.80 H, Lymph # 1.7, Early # 1.2 H, Eos # 0.0, Baso # 0.01 I have reviewed the lab results: Yes - RAD Interpretation Radiology Orders: 02/10/17 08:57 CXR [CHEST PORTABLE] [RAD] Stat - EKG Interpretation Interpreted by ED Physician: Yes Type: 12 lead EKG - Medication Orders Current Medication Orders: Acetylcysteine (Acetylcysteine 20%) 4 ml IH [id number] [facility] Last Admin: 02/10/17 12:26 Dose: 4 ml Amiodarone HCl (Cordarone) 200 mg PO HS TORREY Atorvastatin Calcium (Lipitor) 10 mg PO HS TORREY Docusate Sodium (Colace) 100 mg PO TID TORREY Ezetimibe (Zetia) 10 mg PO HS TORREY Furosemide (Lasix) 40 mg IVP DAILY [facility] Last Admin: 02/10/17 12:20 Dose: 20 mg Comments: given 20mg ivp earlier MAR Blood Pressure Document 02/10/17 12:20 SRE (Rec: 02/10/17 12:25 SRE [id number]) Blood Pressure Blood Pressure (100/60-150/90) 115/63 IVP Administration Document 02/10/17 12:20 SRE (Rec: 12/01/17 12:25 SRE [id number]) Charges for Administration # of IVP Administrations 1 Doxycycline Hyclate 100 mg/ (Sodium Chloride) 100 mls @ 100 mls/hr IVPB Q12 TORREY PRN Reason: Protocol Ceftriaxone Sodium (Rocephin 2 Gm Ivpb) 2 gm in 100 mls @ 100 mls/hr IVPB DAILY TORREY PRN Reason: Protocol Latanoprost (Xalatan Opht) 0 ml OU HS TORREY Levalbuterol HCl (Xopenex) 0.63 mg IH [id number] TORREY Last Admin: 02/10/17 12:26 Dose: 0.63 mg Levothyroxine Sodium (Synthroid) 125 mcg PO ACB TORREY Pantoprazole Sodium (Protonix Ec Tab) 40 mg PO 0600,1600 TORREY Polyethylene Glycol (Miralax) 17 gm PO BID TORREY Discontinued Medications Docusate Sodium (Colace) 100 mg PO PRN PRN PRN Reason: Constipation Furosemide (Lasix) 20 mg IVP STAT STA Stop: 02/10/17 10:45 Last Admin: 02/10/17 10:57 Dose: 20 mg MAR Blood Pressure Document 02/10/17 10:57 SRE (Rec: 02/10/17 10:57 SRE [id number]) Blood Pressure Blood Pressure (100/60-150/90) 105/60 IVP Administration Document 02/10/17 10:57 SRE (Rec: 02/10/17 10:57 SRE [id number]) Charges for Administration # of IVP Administrations 1 Ceftriaxone Sodium (Rocephin 2 Gm Ivpb) 2 gm in 100 mls @ 100 mls/hr IVPB STAT STA PRN Reason: Protocol Stop: 02/10/17 11:11 Last Admin: 02/10/17 10:54 Dose: 100 mls/hr eMAR Start Stop Document 02/10/17 10:54 SRE (Rec: 02/10/17 10:57 SRE [id number]) Intravenous Solution Start Date 02/10/17 Start Time 10:57 End Date 02/10/17 End time 12:00 Total Infusion Time 63 Azithromycin (Zithromax 500mg In Ns) 500 mg in 250 mls @ 167 mls/hr IVPB STAT STA PRN Reason: Protocol Stop: 02/10/17 11:41 Last Admin: 02/10/17 12:25 Dose: 167 mls/hr eMAR Start Stop Document 02/10/17 12:25 SRE (Rec: 02/10/17 12:25 SRE [id number]) Intravenous Solution Start Date 02/10/17 Start Time 12:25 End Date 02/10/17 End time 14:00 Total Infusion Time 95 Phytonadione 1 mg/ Sodium (Chloride) 50.1 mls @ 100 mls/hr IV ONCE STA Stop: 02/10/17 12:17 Phytonadione (Vitamin K Tab) 2.5 mg PO STAT STA Stop: 02/10/17 09:31 Last Admin: 02/10/17 09:50 Dose: 2.5 mg - Scribe Statement The provider has reviewed the documentation as recorded by the [facility] Provider Scribe Attestation: All medical record entries made by the Scribe were at my direction and personally dictated by me. I have reviewed the chart and agree that the record accurately reflects my personal performance of the history, physical exam, medical decision making, and the department course for this patient. I have also personally directed, reviewed, and agree with the discharge instructions and disposition. Disposition/Present on Arrival - Present on Arrival Any Indicators Present on Arrival: No History of DVT/PE: No History of Uncontrolled Diabetes: No Urinary Catheter: No History of Decub. Ulcer: No History Surgical Site Infection Following: Orthopedic Procedures, None - Disposition Have Diagnosis and Disposition been Completed?: Yes Diagnosis: Pneumonia, Supratherapeutic INR, CHF (congestive heart failure) Disposition: HOSPITALIZED Disposition Time: 11:00 Condition: FAIR
[2017-02-10 08:56] LABS: BASO # 0.01 K/mm3 (0.0-2.0); BASO % 0.1 % (0.0-3.0); EOS % 0.3 % (1.5-5.0); GRAN # 12.8 (1.4-6.5); GRAN % 81.3 % (50.0-68.0); HEMATOCRIT 38.2 % (42.0-52.0); LYMPH # 1.7 (1.2-3.4); LYMPH % 10.5 % (22.0-35.0); MEAN CELL VOLUME 92.7 fl (80.0-105.0); MEAN CORPUSCULAR HEMOGLOBIN 29.6 pg (25.0-35.0); MEAN CORPUSCULAR HGB CONC 31.9 g/dl (31.0-37.0); MEAN PLATELET VOLUME 8.7 fl (7.0-11.0); MONO # 1.2 (0.1-0.6); MONO % 7.8 % (1.0-6.0); WHITE BLOOD COUNT 15.7 10^3/ul (4.5-11.0)
[2017-02-10 09:05] LABS: ALB/GLOB RATIO 0.9 (1.1-1.8); ALKALINE PHOSPHATASE 110 U/L (38-126); ALT/SGPT 41 U/L (7-56); AST/SGOT 30 U/L (17-59); BILIRUBIN,TOTAL 0.9 mg/dL (0.2-1.3); BLOOD UREA NITROGEN 29 mg/dL (7-21); CARBON DIOXIDE 27 mmol/L (21-33); CHLORIDE 100 mmol/L (98-107); GFR AFRICAN-AMERICAN > 60; GLUCOSE,RANDOM 86 mg/dL (70-110); POTASSIUM 4.1 mmol/L (3.6-5.0); SODIUM 137 mmol/L (132-148); TOTAL PROTEIN 6.9 g/dL (5.8-8.3)
[2017-02-10 09:18] LABS: INR 9.93 (0.93-1.08)
--- NOTE | 2017-02-10 10:11 | RAD ---
HISTORY: leukocytosis COMPARISON: 06/05/2016 FINDINGS: LUNGS: There is a patchy infiltrate or scar at the right lung base. This was not present on the previous study. PLEURA: No significant pleural effusion identified, no pneumothorax apparent. CARDIOVASCULAR: Heart is normal in size. A dual lead pacemaker is present OSSEOUS STRUCTURES: No significant abnormalities. VISUALIZED UPPER ABDOMEN: Normal. OTHER FINDINGS: None. IMPRESSION: Patchy infiltrate at the right lung base
[2017-02-10] MEDS ORDERED: cefTRIAXone 2 GM IN NS 2 GM/100 ML BAG IVPB STA (10:12)
[2017-02-10] MEDS ORDERED: Azithromycin 500MG/NS 250ml 500 MG/250 ML BAG IVPB STA (10:12)
[2017-02-10 10:32] LABS: TROPONIN I 0.02 ng/mL
[2017-02-10] MEDS ORDERED: Phytonadione 1 MG in Sodium Chloride 0.9% 50 ML IV STA (11:47)
[2017-02-10 11:54] LABS: CHOLESTEROL 146 mg/dL (130-200)
[2017-02-10 12:22] LABS: TROPONIN I 0.02 ng/mL
[2017-02-10] MEDS: Levalbuterol 0.63 MG/3 ML Inhal Soln UD IH SCH ×2 (12:26→19:49)
[2017-02-10] MEDS: Acetylcysteine 20% Inhal Soln (4ml) IH SCH ×2 (12:26→19:48)
[2017-02-10 12:35] LABS: URINE BILIRUBIN NEGATIVE (NEGATIVE); URINE BLOOD TRACE-INTACT (NEGATIVE); URINE GLUCOSE (UA) NEGATIVE (NEGATIVE); URINE KETONE NEGATIVE (NEGATIVE); URINE LEUKOCYTE ESTERASE NEGATIVE Leu/uL (NEGATIVE); URINE PROTEIN NEGATIVE mg/dL (<30 mg/dL); URINE UROBILINOGEN 0.2 E.U./dL (<1 E.U./dL)
[2017-02-10 12:36] LABS: URINE APPEARANCE CLEAR (CLEAR); URINE COLOR YELLOW (YELLOW)
[2017-02-10 12:41] LABS: URINE BACTERIA FEW (NEG); URINE EPITHELIAL CELLS 0 - 2 /hpf (0-5); URINE WBC 0 - 2 /hpf (0-6)
--- NOTE | 2017-02-10 12:41 | CT ---
PROCEDURE: CT Chest without contrast HISTORY: ?PNEUMONIA COMPARISON: None. TECHNIQUE: Contiguous axial images were obtained through the chest without intravenous contrast enhancement. Sagittal and coronal reconstructions were performed. Radiation dose (DLP): 431 mGy-cm. This CT exam was performed using one or more of the following dose reduction techniques: Automated exposure control, adjustment of the mA and/or kV according to patient size, and/or use of iterative reconstruction technique. FINDINGS: LUNGS: There is parenchymal scarring in the right lung apex. This is best seen on image 30 series 4 MEDIASTINUM: Unremarkable thoracic aorta. No aneurysm. Normal sized heart. Main pulmonary artery unremarkable. No vascular congestion. No lymphadenopathy. PLEURA: Small bilateral pleural effusions BONES: No fracture. No destructive lesion. UPPER ABDOMEN: Grossly unremarkable. OTHER FINDINGS: None. IMPRESSION: There is parenchymal scarring in the right lung apex. Small bilateral pleural effusions
--- NOTE | 2017-02-10 12:47 | CP.PCM.HP ---
History of Present Illness - History of Present Illness History of Present Illness: PGY-[address] Scott Admission: Coagulopathy and Pneumonia 86 M, whose PMH include HTN, a-fib s/p pacemaker placement, CHF on midodrine, Hx prostate ca, recent L hip replacement just finished rehabilitation 1 week ago , presents to the ED after being advised by his PMD to come in for high INR. After he was discharged home from rehab, he complained of generalized weakness due to pain from surgery and spinal stenosis. His fiance noticed him sleeping more, but denies change in mentation. Pt has no sick contact, cough, f/c. 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 Last drink > 1 year ago. Denies drug Lives alone. Fiance, Ms Christina Ellsworth. Emergency contact is brother Ambulate with cane All Epineprine - tachycardia, rash Med Amiodarone 300 HS, lisinoprl 10mg (90 supplird sep 7) midodrine 10mg 1/2 tablet by mouth tid [facility], 01/30 filled Lipitor 10 HS, Ezetimibe 10 HS lumigan 0.01% 1 drop each eye HS Docusate 100mg QD Percocet 1 tab q4 PRN, 2 day supplied, picked Jan Warfarin 5mg daily, take 1 table - 1.5 table as directed) Levothyroxine 125 mcg PO ACB fluticasone PMD Dr. Vito Hogue [place] Outpt GI: Dr. Claudia Viera, [facility] Outpt Cardio: Dr Brandon David, [facility], [place] Outpt urology: Present on Admission - Present on Admission Any Indicators Present on Admission: No Review of Systems - Review of Systems All systems: reviewed and no additional remarkable complaints except - Constitutional Constitutional: Weakness (generalize) Additional comments: pain from surgery Past Patient History - Infectious Disease Hx of Infectious Diseases: None - Tetanus Immunizations Tetanus Immunization: Unknown - Past Social History Smoking Status: Never Smoked - CARDIAC Hx Cardiac Disorders: Yes (Afib; PAcemaker) Hx Hypertension: Yes - PULMONARY Hx Respiratory Disorders: No - NEUROLOGICAL Hx Neurological Disorder: Yes Hx Dizziness: Yes Hx Transient Ischemic Attacks (TIA): Yes Other/Comment: lumbAr stenosis,SYNCOPE - HEENT Hx HEENT Problems: Yes Hx Cataracts: Yes Hx Deafness: Yes (rt ear) Hx Glaucoma: Yes (surgery/RIGHT) - RENAL Hx Chronic Kidney Disease: No - ENDOCRINE/METABOLIC Hx Hypothyroidism: Yes - HEMATOLOGICAL/ONCOLOGICAL Hx Blood Disorders: Yes Hx Cancer: Yes (PROSTATE) - INTEGUMENTARY Hx Dermatological Problems: Yes Hx Psoriasis: Yes - MUSCULOSKELETAL/RHEUMATOLOGICAL Hx Falls: Yes - GASTROINTESTINAL Hx Gastrointestinal Disorders: Yes Hx Diverticulitis: Yes - GENITOURINARY/GYNECOLOGICAL Hx Genitourinary Disorders: Yes - PSYCHIATRIC Hx Depression: No Hx Emotional Abuse: No Hx Physical Abuse: No Hx Substance Use: No - SURGICAL HISTORY Other/Comment: CATARACT SURGERY AND RIGHT GLAUCOMA SX - ANESTHESIA Hx Anesthesia: Yes Hx Anesthesia Reactions: No Hx Malignant Hyperthermia: No Meds Allergies/Adverse Reactions: Allergies Allergy/AdvReac Type Severity Reaction Status Date / Time epinephrine Allergy ANAPHYLAXIS Verified 08/24/16 23:05 Physical Exam - Constitutional Appears: Chronically Ill - Head Exam Head Exam: ATRAUMATIC, NORMAL INSPECTION, NORMOCEPHALIC - Eye Exam Eye Exam: EOMI, Normal appearance, PERRL. absent: Scleral icterus Pupil Exam: NORMAL ACCOMODATION - ENT Exam ENT Exam: Mucous Membranes Dry - Neck Exam Additional comments: supple - Respiratory Exam Respiratory Exam: Decreased Breath Sounds (all lung holman), Clear to Auscultation Bilateral, NORMAL BREATHING PATTERN. absent: Rales, Rhonchi, Wheezes - Cardiovascular Exam Cardiovascular Exam: REGULAR RHYTHM, +S1, +S2, Systolic Murmur - GI/Abdominal Exam GI & Abdominal Exam: Normal Bowel Sounds, Soft. absent: Distended, Firm, Guarding, Rigid - Extremities Exam Extremities exam: Positive for: normal capillary refill, pedal pulses present. Negative for: calf tenderness, pedal edema - Back Exam Back exam: absent: CVA tenderness (L), CVA tenderness (R) - Neurological Exam Neurological exam: Alert, CN II-XII Intact, Oriented x3 - Psychiatric Exam Psychiatric exam: Normal Affect, Normal Mood - Skin Skin Exam: Dry, Warm Results - Vital Signs Recent Vital Signs: Last Vital Signs Temp 98.1 F 02/10/17 08:27 Pulse 83 02/10/17 12:33 Resp 18 02/10/17 12:33 BP 115/63 02/10/17 12:33 Pulse Ox 97 02/10/17 12:33 - Labs Result Diagrams: 02/10/17 08:45 02/10/17 08:45 Labs: Laboratory Results - last 24 hr 02/10/17 02/10/17 11:45 12:22 Total Creatine Kinase < 20 L Troponin I 0.02 Urine Color Yellow Urine Appearance Clear Urine pH 6.0 Ur Specific Cook 1.015 Urine Protein Negative Urine Glucose (UA) Negative Urine Ketones Negative Urine Blood Trace-intact H Urine Nitrate Negative Urine Bilirubin Negative Urine Urobilinogen 0.2 Ur Leukocyte Esterase Negative Urine RBC 1 - 3 Urine WBC 0 - 2 Ur Epithelial Cells 0 - 2 Urine Bacteria Few Assessment & Plan - Assessment and Plan (Free Text) Plan: 86 M admitted for supratherapeutic coagulopathy and HCAP. He was recently hospitalized and rehab for L hip fracture and replacement. CXR showed patchy infilatrate at R lung base. Chest CT w/o contrast showed parenchymal scarring in R lung apex and Small bilatera pleural effusion. He was put of midodrine since last hospitalization Supratherapeutic coagulopathy, INR 9.93, APTT 62 - s/p Vit K 1 mg x 1 - Hold warfarin - daily Coags Pneumonia, healthcare associated Leukocytosis 15.7, SIRS 1/4 - Septic work up: pending Blood culture, urine culture. Procalc pending - Doxycycline 100 Q12, Ceftriazone 2gm daily - Acetylcystein 20% 4ml Q6, Xopenex 0.63 Q6 CHF r/o ischemic cause Elevated BNP likely due to PNA vs CHF - EKG - v-pace at 80 - BNP, CPK daily; trops x 3 - CBC, CMP, Mg, coags daily - Hold Midodrine pending cardiology recs. BP > 100 - Laxis 40 IV daily A-fib s/p pacemaker - Amiodarone HLD - Zetia 10 Nomocytic anemia Hb 12.2, MCV 92.7 - aysmptpmatic. Observe for now Hypothyroidism - Synthroid 125 QD. TSH wnl. Glaucoma - Latanoprost Constipation: Docusate 100 TID and miralax BID FEN - HHD, hold fluid for CHF/no fever pvx - protonix 40 BID, AE vinny, SCD Consult Rivera - CHF [facility] - PNA S/D/R/w Dr. Scott
[2017-02-10 13:34] LABS: FREE T4 2.33 ng/dL (0.78-2.19); T4 6.9 ug/dL (5.5-11.0)
[2017-02-10 13:46] LABS: THYROID STIMULATING HORMONE 3.2 mIU/mL (0.46-4.68)
--- NOTE | 2017-02-10 14:23 | HP ---
HISTORY OF PRESENT ILLNESS: The patient is an 86-year-old male who was brought to the emergency room by the [facility] ambulance BLS because the patient's PMD sent the patient for elevated INR. The patient was evaluated in the emergency room by Dr. Monson, the patient was found to be in CHF and bilateral pneumonia. According to the ER physician evaluation note of the patient, the patient presented with complaint of elevated INR of 14. The patient denied any bleeding. CODE STATUS: Full code. LIVING WILL ADVANCE DIRECTIVE: None. Height is 6 feet 2 inches. Weight is 145. BMI is 18.6. HOME MEDICATIONS: 1. Amiodarone 200 mg daily. 2. Lipitor 10 mg daily. 3. Xalatan eye drop 0.005% one drop both eyes at bedtime/ 4. Zetia 10 mg daily. 5. Colace 100 mg p.r.n. 6. Percocet 2.5/325 mg b.i.d. p.r.n. 7. Coumadin 5 mg three times a week. 8. Synthroid 125 mcg daily. PATIENT'S PHARMACY: [facility] [place] and [facility]. SOCIAL HISTORY: Negative for substance abuse. Negative for alcohol. Negative for smoking. PAST MEDICAL AND SURGICAL HISTORY: History of atrial fibrillation, history of dyslipidemia, history of hypertension, history of constipation, history of lumbar spinal surgery, history of hypothyroidism, history of history of permanent pacemaker implant, history of diverticulitis, history of prostate hypertrophy, history of cataract, history of glaucoma, history of right eye cataract surgery, history of hearing deficit, history of degenerative joint disease, history of right upper extremity fracture and leg fracture, history of for degenerative joint disease, history of transient ischemic infarct, history of gait dysfunction, history of prostate carcinoma, history of left hip surgery, history of pacemaker implant, and history of lumbar spinal stenosis. The patient's past medical history is significant for anemia, history of Coumadin dependent atrial fibrillation, history of dyslipidemia, and history of A+ blood type. Past medical history is also significant for history of left hip soft tissue contusion, history of history of gait dysfunction, history of history of degenerative joint disease of the knees. 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, history of large gastric diverticulum, history of left knee joint effusion, history of left ventricular ejection fraction of 31%, history of concentric left ventricle hypertrophy with moderately impaired left ventricular systolic function, history of systolic congestive heart failure with moderately impaired left ventricular function between 30% to 40%, history of moderately dilated left atrium, history of questionable mild aortic stenosis with thickened aortic valve, history of suspected perforation of the anterior mitral valve leaflet, history of fqvbwuik-yf-uyqsks mitral regurgitation, history of partially flail posterior mitral valve leaflet versus severe degenerative changes, history of mild tricuspid regurgitation, history of moderately impaired left ventricular systolic function of 40% to 45%, history of doozzxzy-vr-iyikgj mitral regurgitation, history of vertigo, history of mechanical fall, history of left hip trochanteric bursitis, history of bilateral cerebral dysfunction, history of questionable syncope, history of lumbar spine degenerative disk disease, history of cardiomyopathy, history of moderate to severe mitral regurgitation, history of trochanteric bursitis, history of constipation, history of diffuse bilateral cerebral dysfunction, history of abdominal pain secondary to constipation, history of glaucoma, and history of chronic atrial fibrillation. ALLERGIES: EPINEPHRINE. PHYSICAL EXAMINATION: GENERAL: The patient was seen in the emergency room in bed 4. The patient is seen lying in the bed. VITAL SIGNS: T-max is 98.1, heart rate is 80 and paced, blood pressure is 105/61 and 127/66, respirations are 18 to 20, and O2 saturation is 97% to 98% in on room air. HEENT: The patient's head examination is normocephalic and atraumatic. HEENT examination shows pinkish pale conjunctiva and no oropharyngeal lesion. NECK: No neck rigidity. Chest: Examination shows kyphosis. Positive left upper chest pacemaker. Positive crepitations, rhonchi, rales, crackles and wheezing bilaterally. CARDIOVASCULAR: Examination shows S1 and S2, regular rhythm. Positive systolic murmur left sternal border, right second intercostal space, left second intercostal space. GASTROINTESTINAL: Abdomen is soft. Positive bowel sound. GENITALIA: Male. RECTAL: Examination is deferred. EXTREMITIES: Shows trace swelling of the lower extremity. NEUROLOGIC: The patient is alert, awake, and responsive. He is able to move upper and lower extremity without assistance. Cranial nerves II through XII intact. Gait examination is not tested. PSYCHIATRIC: Examination is negative. MUSCULOSKELETAL: Body mass index is 18.6. DIAGNOSTIC AND LABORATORY DATA: WBC of 15.7, hemoglobin and hematocrit of 12.2 and 38.2, and platelet of 224 with granulocytes 81% segs. PT is 114.5, INR is 9.9, and PTT is 62. Sodium of 137, potassium of 4.1, chloride of 100, CO2 of 27, anion gap of 14, BUN of 29, and creatinine of 1.0. GFR is greater than 60 and glucose is 86. LFTs are normal. CPK is less than 20. Troponin is 0.02. BNP is 2490 IMAGING DATA: Chest x-ray was reviewed which shows bilateral haziness questionable right lower lobe and left lower lobe infiltrate and density noted.. Positive pacemaker noted.. Permanent pacemaker noted on the left upper chest. TREATMENT IN THE EMERGENCY ROOM: The patient was seen in the emergency room. EKG shows paced rhythm. The patient's EKG was done in the emergency room. It shows paced rhythm. The patient was seen in the emergency room by Dr. Monson. The patient was given Lasix 20 IV. The patient was given Rocephin 2 g. The patient was given vitamin K 2.5 mg tablet and the patient was given Zithromax 500 mg. IMPRESSION AND PLAN 1. Iatrogenic coagulopathy. 2. Multilobar bilateral community-acquired versus healthcare-associated pneumonia. 3. Questionable sepsis versus systemic inflammatory response syndrome. 4. Leukocytosis with granulocytosis. 5. Iatrogenic coagulopathy with Coumadin dependent atrial fibrillation with elevated PT and INR. 6. Systolic congestive heart failure with elevated brain natriuretic peptide. 7. Prerenal kidney injury. 8. History of hypothyroidism. 9. Congestive heart failure. 10. Systolic congestive heart failure. 11. History of dyslipidemia, history of atrial fibrillation, and history of constipation. PLAN: At this time, the patient will be admitted to telemetry. The patient has been ordered heart healthy diet, serial cardiac enzymes, serial EKGs, serial labs has been ordered, serial BNP, and serial PT and INR has been ordered. The patient has been ordered serial cardiac enzymes and serial labs for the morning, daily EKG, blood and urine cultures are ordered. The patient's Cardiology consultation and Infectious Diseases consultation requested. The patient is started on bronchodilators with Mucomyst and Colace 100 mg three times a day will be ordered. The patient will be ordered, MiraLax 17 g b.i.d. The patient is resumed on his amiodarone 200 mg daily, doxycycline 100 mg IV q. 12 hours., Lasix 40 IV daily, Lipitor 10 mg at bedtime, MiraLax, Protonix 40 mg has been ordered, Rocephin 2 g IV daily has been ordered, and Synthroid 125 mcg daily and vitamin K 1 mg ordered, Xopenex ordered and EKG ordered. At present, the patient's CT chest was ordered. The patient's further management will be dependent upon the patient's clinical condition, hemodynamic status, and as per the patient response to therapeutic intervention as per the patient's diagnostic test results. For further details of history and physical examination, please refer to the history and physical examination dictated by the medical records assistant. Dictated and electronically signed, not read. Signing off Ash Scott MD Ash Scott MD
[2017-02-10] MEDS: POLYETHYLENE GLYCOL 3350 17 GM/Dose PACKET PO SCH ×2 (14:34→18:03)
[2017-02-10] MEDS: Levothyroxine 125 MCG TAB PO SCH (14:34)
[2017-02-10] MEDS ORDERED: Influenza Vaccine 60 mcg/0.5 mL SYR (4YR UP) IM ONE (14:37)
[2017-02-10] MEDS ORDERED: Pneumococcal 23-Valent Vaccine IM ONE (14:37)
[2017-02-10 15:50] LABS: TROPONIN I 0.02 ng/mL
[2017-02-10] MEDS ORDERED: Phytonadione 10 mg/ml Inj (Adult) SC ONE (16:47)
--- NOTE | 2017-02-10 17:27 | CARD ---
APPROVED REPORT EKG Measurement Heart [id number] <Conclusion> Electronic ventricular pacemaker
[2017-02-10] MEDS ORDERED: MIDODRINE 5 MG PO SCH (18:00)
[2017-02-10] MEDS: Pantoprazole 40 mg EC Tab PO SCH (18:03)
--- NOTE | 2017-02-10 18:07 | CP.PCM.CON ---
History of Present Illness - History of Present Illness History of Present Illness: 86 year old male with PMH of HTN, hypothyroidism, left hip surgery in 2016 , atrial fibrillation was asked to come to the ED by his PMD because his outpatient labs showed an INR level of 14. In the ED, his INR level was 9. He was not complaining of melena, no hematochezia, no epistaxis, no hematuria. He was also not complaining of fever or chills, no nausea or vomiting, no chest pain, no SOB at rest, no rhinorrhea, no abdominal pain, no diarrhea. He had some cough but no sputum production. CXR was done which was suggesting an infiltrate in the lower lobes. Infectious Diseases consult is requested to further evaluate and manage. Review of Systems - Review of Systems All systems: reviewed and no additional remarkable complaints except (as per HPI ) Past Patient History - Infectious Disease Hx of Infectious Diseases: None - Tetanus Immunizations Tetanus Immunization: Unknown - Past Social History Smoking Status: Never Smoked - CARDIAC Hx Cardiac Disorders: Yes (Afib; PAcemaker) Hx Hypertension: Yes - PULMONARY Hx Respiratory Disorders: No - NEUROLOGICAL Hx Neurological Disorder: Yes Hx Dizziness: Yes Hx Transient Ischemic Attacks (TIA): Yes Other/Comment: lumbAr stenosis,SYNCOPE - HEENT Hx HEENT Problems: Yes Hx Cataracts: Yes Hx Deafness: Yes (rt ear) Hx Glaucoma: Yes (surgery/RIGHT) - RENAL Hx Chronic Kidney Disease: No - ENDOCRINE/METABOLIC Hx Hypothyroidism: Yes - HEMATOLOGICAL/ONCOLOGICAL Hx Blood Disorders: Yes Hx Cancer: Yes (PROSTATE) - INTEGUMENTARY Hx Dermatological Problems: Yes Hx Psoriasis: Yes - MUSCULOSKELETAL/RHEUMATOLOGICAL Hx Falls: Yes - GASTROINTESTINAL Hx Gastrointestinal Disorders: Yes Hx Diverticulitis: Yes - GENITOURINARY/GYNECOLOGICAL Hx Genitourinary Disorders: Yes - PSYCHIATRIC Hx Depression: No Hx Emotional Abuse: No Hx Physical Abuse: No Hx Substance Use: No - SURGICAL HISTORY Other/Comment: CATARACT SURGERY AND RIGHT GLAUCOMA SX - ANESTHESIA Hx Anesthesia: Yes Hx Anesthesia Reactions: No Hx Malignant Hyperthermia: No Meds Allergies/Adverse Reactions: Allergies Allergy/AdvReac Type Severity Reaction Status Date / Time epinephrine Allergy ANAPHYLAXIS Verified 08/24/16 23:05 - Medications Medications: Current Medications Acetylcysteine (Acetylcysteine 20%) 4 ml IH [id number] [facility] Last Admin: 02/10/17 12:26 Dose: 4 ml Amiodarone HCl (Cordarone) 200 mg PO HS TORREY Atorvastatin Calcium (Lipitor) 10 mg PO HS TORREY Docusate Sodium (Colace) 100 mg PO TID TORREY Ezetimibe (Zetia) 10 mg PO HS TORREY Furosemide (Lasix) 40 mg IVP DAILY [facility] Last Admin: 02/10/17 12:20 Dose: 20 mg Doxycycline Hyclate 100 mg/ (Sodium Chloride) 100 mls @ 100 mls/hr IVPB Q12 [facility] PRN Reason: Protocol Ceftriaxone Sodium (Rocephin 2 Gm Ivpb) 2 gm in 100 mls @ 100 mls/hr IVPB DAILY [facility] PRN Reason: Protocol Latanoprost (Xalatan Opht) 0 ml OU HS TORREY Levalbuterol HCl (Xopenex) 0.63 mg IH [id number] [facility] Last Admin: 02/10/17 12:26 Dose: 0.63 mg Levothyroxine Sodium (Synthroid) 125 mcg PO ACB TORREY Pantoprazole Sodium (Protonix Ec Tab) 40 mg PO 0600,1600 [facility] Polyethylene Glycol (Miralax) 17 gm PO BID [facility] Physical Exam - Constitutional Appears: Non-toxic, No Acute Distress - Head Exam Head Exam: NORMAL INSPECTION - ENT Exam ENT Exam: Mucous Membranes Moist - Neck Exam Neck exam: Negative for: Lymphadenopathy, Meningismus - Respiratory Exam Respiratory Exam: Decreased Breath Sounds - Cardiovascular Exam Cardiovascular Exam: +S1, +S2 - GI/Abdominal Exam GI & Abdominal Exam: Soft. absent: Tenderness Results - Vital Signs Recent Vital Signs: Last Vital Signs Temp 98.1 F 02/10/17 08:27 Pulse 83 02/10/17 12:33 Resp 18 02/10/17 12:33 BP 115/63 02/10/17 12:33 Pulse Ox 97 02/10/17 12:33 - Labs Result Diagrams: 02/10/17 08:45 02/10/17 08:45 Labs: Laboratory Results - last 24 hr 02/10/17 02/10/17 11:45 12:22 Total Creatine Kinase < 20 L Troponin I 0.02 Urine Color Yellow Urine Appearance Clear Urine pH 6.0 Ur Specific [place] 1.015 Urine Protein Negative Urine Glucose (UA) Negative Urine Ketones Negative Urine Blood Trace-intact H Urine Nitrate Negative Urine Bilirubin Negative Urine Urobilinogen 0.2 Ur Leukocyte Esterase Negative Urine RBC 1 - 3 Urine WBC 0 - 2 Ur Epithelial Cells 0 - 2 Urine Bacteria Few Assessment & Plan - Assessment and Plan (Free Text) Plan: Assessment Leukocytosis with systemic inflammatory response syndrome, consider due to CHF; no evidence of pneumonia noted on CT chest which only showed right apex scarring elevated INR HTN hypothyroidism left hip surgery in 2016 atrial fibrillation Plan Patient was started on Zithromax and rocephin but will discontinue and monitor off antibiotics clinically; follow up cultures, check PCT trend INR levels and WBC count
--- NOTE | 2017-02-10 18:16 | CT ---
PROCEDURE: CT HEAD WITHOUT CONTRAST. HISTORY: r/o hemorrhage, INR 9.9 COMPARISON: 09/09/2016 TECHNIQUE: Axial computed tomography images were obtained through the head/brain without intravenous contrast. Radiation dose: Total exam DLP = 843.77 mGy-cm. This CT exam was performed using one or more of the following dose reduction techniques: Automated exposure control, adjustment of the mA and/or kV according to patient size, and/or use of iterative reconstruction technique. FINDINGS: HEMORRHAGE: No intracranial hemorrhage. BRAIN: No mass effect or edema. Cortical atrophy, periventricular small vessel disease VENTRICLES: Unremarkable. No hydrocephalus. CALVARIUM: Unremarkable. PARANASAL SINUSES: Unremarkable as visualized. No significant inflammatory changes. MASTOID AIR CELLS: Stable postoperative findings left mastoid air cells, temporal bone region OTHER FINDINGS: None. IMPRESSION: No acute intracranial abnormalities. No significant findings to account for the clinical presentation. No significant interval change compared to the prior examination(s).
[2017-02-10 18:47] LABS: INR 4.7 (0.93-1.08); PARTIAL THROMBOPLASTIN TIME 54.4 Seconds (25.1-36.5)
[2017-02-10 18:59] LABS: TROPONIN I 0.02 ng/mL
[2017-02-10] MEDS: Latanoprost 2.5 ml Opht Soln OU SCH (22:33)
[2017-02-11 00:23] LABS: TROPONIN I 0.03 ng/mL
[2017-02-11] MEDS: Acetylcysteine 20% Inhal Soln (4ml) IH SCH ×4 (01:33→20:25)
[2017-02-11] MEDS: Levalbuterol 0.63 MG/3 ML Inhal Soln UD IH SCH ×4 (01:34→20:25)
[2017-02-11] MEDS: Oxycodone/Acetaminophen 2.5/325 mg Tab PO PRN ×2 (02:28→23:15)
[2017-02-11] MEDS: Pantoprazole 40 mg EC Tab PO SCH ×2 (05:00→16:39)
[2017-02-11 07:33] LABS: BASO # 0.01 K/mm3 (0.0-2.0); BASO % 0.1 % (0.0-3.0); EOS % 0.1 % (1.5-5.0); GRAN # 11.62 (1.4-6.5); GRAN % 82.8 % (50.0-68.0); HEMATOCRIT 34.3 % (42.0-52.0); LYMPH # 1.5 (1.2-3.4); LYMPH % 10.3 % (22.0-35.0); MEAN CELL VOLUME 92.2 fl (80.0-105.0); MEAN CORPUSCULAR HEMOGLOBIN 29.6 pg (25.0-35.0); MEAN CORPUSCULAR HGB CONC 32.1 g/dl (31.0-37.0); MEAN PLATELET VOLUME 9.1 fl (7.0-11.0); MONO # 0.9 (0.1-0.6); MONO % 6.7 % (1.0-6.0)
[2017-02-11 08:01] LABS: ALB/GLOB RATIO 0.9 (1.1-1.8); ALKALINE PHOSPHATASE 84 U/L (38-126); ALT/SGPT 42 U/L (7-56); AST/SGOT 27 U/L (17-59); BILIRUBIN,DIRECT 0.6 mg/dL (0.0-0.4); BILIRUBIN,TOTAL 0.8 mg/dL (0.2-1.3); BLOOD UREA NITROGEN 29 mg/dL (7-21); CALCIUM 8.6 mg/dL (8.4-10.5); CARBON DIOXIDE 28 mmol/L (21-33); CHLORIDE 98 mmol/L (98-107); GFR AFRICAN-AMERICAN > 60; GLUCOSE,RANDOM 82 mg/dL (70-110); MAGNESIUM 1.8 mg/dL (1.7-2.2); POTASSIUM 3.4 mmol/L (3.6-5.0); SODIUM 137 mmol/L (132-148); TOTAL PROTEIN 5.9 g/dL (5.8-8.3)
[2017-02-11] MEDS ORDERED: Potassium Chloride 40 mEq/30 ml LIQ UD PO ONE (08:07)
[2017-02-11 08:13] LABS: INR 1.62 (0.93-1.08); PARTIAL THROMBOPLASTIN TIME 36.8 Seconds (25.1-36.5)
[2017-02-11] MEDS: Levothyroxine 125 MCG TAB PO SCH (08:24)
[2017-02-11] MEDS ORDERED: cefTRIAXone 2 GM IN NS 2 GM/100 ML BAG IVPB SCH (10:00)
[2017-02-11] MEDS: Fluticasone Nasal 50 mcg/Spray NS SCH (10:31)
[2017-02-11] MEDS: POLYETHYLENE GLYCOL 3350 17 GM/Dose PACKET PO SCH ×2 (10:33→17:36)
[2017-02-11] MEDS ORDERED: Iohexol 240 (50 ml) ONE (11:13)
--- NOTE | 2017-02-11 13:02 | CON ---
CARDIOLOGY CONSULTATION DATE: 02/11/2017 HISTORY: The patient is an 86-year-old male who presents with an elevated INR close to 10. The patient denies bleeding. The patient's past medical history is notable for chronic atrial fibrillation, treated with anticoagulation with Coumadin for many years. In addition, the patient suffers from hypertension and hypercholesterolemia. He is on amiodarone 300 mg at night for presumed heart rate control. He denies chest pain, denies shortness of breath, denies bleeding. SOCIAL HISTORY: The patient does not smoke. REVIEW OF SYSTEMS: A 14-point review of systems was reviewed. No cardiac symptomatology is noted. PHYSICAL EXAMINATION: VITAL SIGNS: Blood pressure 96/56, heart rate is in the 80s. NECK: Negative JVD. LUNGS: Without rales. HEART: With S1, S2. EXTREMITIES: Without edema. LABORATORY DATA: INR is 1.62. Chemistries; BUN and creatinine is 29 and 1.0. The hemoglobin is 11.0. IMPRESSION: 1. Coagulopathy, which is now corrected. 2. Chronic atrial fibrillation. 3. Cardiomyopathy. 4. Anemia. 5. Atrial fibrillation. PLAN: Given these findings, we will restart the Coumadin today at 2.5 daily. We will obtain daily PT/INRs. In addition, we will obtain an echocardiogram to evaluate his LV function. Brayden Rivera MD
[2017-02-11] MEDS: Tobramycin/Dexamethasone (Tobradex) Opth Sol (2.5 ml) OU SCH ×3 (14:59→22:47)
--- NOTE | 2017-02-11 17:07 | CARD ---
APPROVED REPORT EXAM: Two-dimensional and M-mode echocardiogram with Doppler and color Doppler. INDICATION 2D DIMENSIONS IVSd1.5 (0.7-1.1cm)LVDd4.3 (3.9-5.9cm) LVOT Diameter2.0 (1.8-2.4cm)PWd1.6 (0.7-1.1cm) LVDs3.7 (2.5-4.0cm)FS (%) 14.7 % LVEF (%)55.0 (>50%) M-Mode DIMENSIONS Left Atrium (MM)4.00 (2.5-4.0cm)Aortic Root3.80 (2.2-3.7cm) Aortic Cusp Exc.1.70 (1.5-2.0cm) Aortic Valve AoV Peak Ymdjirzo78.9cm/Robin Peak GR.3mmHg Mitral Valve MV E Axdsxpuf96.9cm/sMV A Xteuehbw40.4cm/sE/A ratio1.9 TDI Lateral E' Peak V10.00cm/sMedial E' Peak V8.58cm/sE/Lateral E'8.8 E/Medial E'10.2 Tricuspid Valve TR Peak Ydjonlsb355xi/sRAP QLPVGFQQ45vzQxTL Peak Gr.25mmHg OJKT26svGj LEFT VENTRICLE The left ventricle is normal size. There is mild concentric left ventricular hypertrophy. The left ventricular function is normal. The left ventricular ejection fraction is within the normal range. There is normal LV segmental wall motion. Transmitral Doppler flow pattern is Grade II-pseudonormal filling dynamics. RIGHT VENTRICLE The right ventricle is normal size. There is normal right ventricular wall thickness. The right ventricular systolic function is normal. ATRIA The left atrium size is normal. The right atrium size is normal. AORTIC VALVE The aortic valve is not well visualized. No aortic regurgitation is present. MITRAL VALVE The mitral valve is moderately thickened. Mitral regurgitation is mild. TRICUSPID VALVE There is mild tricuspid regurgitation. There is mild pulmonary hypertension. GREAT VESSELS The aortic root is normal in size. PERICARDIAL EFFUSION There is no pericardial effusion. <Conclusion> The left ventricle is normal size. There is mild concentric left ventricular hypertrophy. The left ventricular function is normal. The left ventricular ejection fraction is within the normal range. There is normal LV segmental wall motion. Transmitral Doppler flow pattern is Grade II-pseudonormal filling dynamics. Mitral regurgitation is mild. There is mild tricuspid regurgitation. There is mild pulmonary hypertension.
[2017-02-11] MEDS: AMPicillin 2 GM in Sodium Chloride 0.9% 100 ML IVPB SCH (17:34)
--- NOTE | 2017-02-11 20:15 | CT ---
EXAM: CT Abdomen and Pelvis With Intravenous Contrast CLINICAL HISTORY: 86 years old, male; Signs and symptoms; Other: Leukocytosis R/O gi pathology TECHNIQUE: Axial computed tomography images of the abdomen and pelvis with intravenous contrast. All CT scans at this facility use one or more dose reduction techniques, viz.: automated exposure control; ma/kV adjustment per patient size (including targeted exams where dose is matched to indication; i.e. head); or iterative reconstruction technique. Coronal and sagittal reformatted images were created and reviewed. CONTRAST: 32 mL of [id number] administered intravenously. COMPARISON: CT - ABD PELVIS IV CONTRAST ONLY 2016-06-05 19:31 FINDINGS: Lower thorax: Small bilateral pleural effusions, with adjacent compressive atelectasis. ABDOMEN: Liver: No acute findings. Gallbladder and bile ducts: The gallbladder is moderately distended, without calcified stones. No significant intra- or extrahepatic biliary ductal dilation. Pancreas: Enhances homogeneously. No ductal dilation. No discrete mass. Spleen: No acute findings. Adrenals: No acute findings. Kidneys and ureters: No acute findings. No hydronephrosis or renal calculi. No discrete solid mass. Multiple areas of rounded fluid attenuation within the bilateral kidneys, statistically representing cysts. The largest on the right measures 10 cm in greatest dimension. The largest on the left measures 5 cm in greatest dimension. PELVIS: Bladder: No acute findings. Reproductive: No acute findings. Appendix: The air filled appendix is of normal caliber (series 2, image 138) . ABDOMEN and PELVIS: Stomach and bowel: Oral contrast extends the level of the colon, without obstruction. No mucosal thickening. The rectum is distended with stool. Peritoneum: No significant fluid collection. No free air. Lymph nodes: No pathologically enlarged lymph nodes. Vasculature: Densely calcified atherosclerotic disease. Bones: No acute fracture. A left total hip prosthetic is present, demonstrating significant streak metallic artifact obscuring visualization of the left hemipelvis. IMPRESSION: Small bilateral pleural effusions with adjacent compressive atelectasis. Moderate gallbladder distention.
--- NOTE | 2017-02-11 21:04 | PN ---
DATE: 02/11/2017 SUBJECTIVE: The patient is in bed in no acute distress, nontoxic. PHYSICAL EXAMINATION: VITAL SIGNS: Temperature is 97, blood pressure is 106/60, and respiratory rate of 16. HEENT: Unremarkable. NECK: Supple. LUNGS: Decreased breath sounds. HEART: Normal S1 and S2. ABDOMEN: Soft. LABORATORY DATA: [place] [address], hemoglobin of 11, and platelets of 224. Chemistry reveals a BUN of 29 and creatinine of 1.0. Microbiology reveals blood culture of gram-positive cocci and urine culture of gram-positive cocci. The blood culture is reported to be Enterococcus faecalis by [facility] FISH. Review of the orders reveals the patient to be on ceftriaxone. ASSESSMENT AND PLAN: An 86-year-old male seen earlier this morning in room 377, bed 2 with atrial fibrillation, hypertension, pacemaker, admitted with sepsis with gram-positive cocci with enterococcus bacteremia, must rule out endocarditis. Dr. Brayden Rivera's consultation has been reviewed. The patient did have an echocardiogram. We will add ampicillin for possible enterococcal endocarditis and infected pacemaker. Repeat blood cultures. We will check on the echocardiogram results. We will order a sed rate and C-reactive protein. Repeat blood cultures are ordered by today. We will add ceftriaxone also 2 g q. 12 hours. Jorgito Correa MD
--- NOTE | 2017-02-11 21:56 | CARD ---
APPROVED REPORT EKG Measurement Heart [id number] [place] 80P-10 [id number] <Conclusion> Electronic ventricular pacemaker
[2017-02-11] MEDS: cefTRIAXone 2 GM IN NS 2 GM/100 ML BAG IVPB SCH (22:46)
[2017-02-11] MEDS: Latanoprost 2.5 ml Opht Soln OU SCH (22:47)
[2017-02-12] MEDS: AMPicillin 2 GM in Sodium Chloride 0.9% 100 ML IVPB SCH ×5 (00:14→23:11)
[2017-02-12] MEDS: Levalbuterol 0.63 MG/3 ML Inhal Soln UD IH SCH ×4 (01:27→20:18)
[2017-02-12] MEDS: Acetylcysteine 20% Inhal Soln (4ml) IH SCH ×4 (01:27→20:18)
[2017-02-12] MEDS: Pantoprazole 40 mg EC Tab PO SCH ×2 (05:53→18:23)
[2017-02-12 07:13] LABS: BASO # 0.01 K/mm3 (0.0-2.0); BASO % 0.1 % (0.0-3.0); GRAN # 13.46 (1.4-6.5); GRAN % 85.6 % (50.0-68.0); HEMATOCRIT 33.8 % (42.0-52.0); LYMPH # 1.2 (1.2-3.4); LYMPH % 7.8 % (22.0-35.0); MEAN CELL VOLUME 90.6 fl (80.0-105.0); MEAN CORPUSCULAR HEMOGLOBIN 28.7 pg (25.0-35.0); MEAN CORPUSCULAR HGB CONC 31.7 g/dl (31.0-37.0); MEAN PLATELET VOLUME 8.9 fl (7.0-11.0); MONO % 6.5 % (1.0-6.0); RED CELL DISTRIBUTION WIDTH 14.8 % (11.5-14.5); WHITE BLOOD COUNT 15.7 10^3/ul (4.5-11.0)
[2017-02-12 07:27] LABS: ALB/GLOB RATIO 0.9 (1.1-1.8); ALKALINE PHOSPHATASE 79 U/L (38-126); ALT/SGPT 39 U/L (7-56); AST/SGOT 34 U/L (17-59); BILIRUBIN,DIRECT 0.7 mg/dL (0.0-0.4); BILIRUBIN,TOTAL 0.7 mg/dL (0.2-1.3); BLOOD UREA NITROGEN 25 mg/dL (7-21); CALCIUM 8.4 mg/dL (8.4-10.5); CARBON DIOXIDE 31 mmol/L (21-33); CHLORIDE 95 mmol/L (98-107); GFR AFRICAN-AMERICAN > 60; GLUCOSE,RANDOM 106 mg/dL (70-110); MAGNESIUM 1.7 mg/dL (1.7-2.2); POTASSIUM 3.7 mmol/L (3.6-5.0); SODIUM 133 mmol/L (132-148); TOTAL PROTEIN 5.9 g/dL (5.8-8.3)
[2017-02-12 07:31] LABS: INR 1.69 (0.93-1.08); PARTIAL THROMBOPLASTIN TIME 33.9 Seconds (25.1-36.5)
[2017-02-12] MEDS: Levothyroxine 125 MCG TAB PO SCH (08:32)
[2017-02-12] MEDS: Fluticasone Nasal 50 mcg/Spray NS SCH (10:26)
[2017-02-12] MEDS: POLYETHYLENE GLYCOL 3350 17 GM/Dose PACKET PO SCH ×2 (10:26→18:24)
[2017-02-12] MEDS: Magnesium Oxide 400 mg Tab UD PO SCH ×2 (10:27→18:24)
[2017-02-12] MEDS: Potassium Chloride 20 mEq ER Tab PO SCH ×2 (10:27→18:24)
[2017-02-12] MEDS: Tobramycin/Dexamethasone (Tobradex) Opth Sol (2.5 ml) OU SCH ×4 (10:28→22:09)
[2017-02-12] MEDS: cefTRIAXone 2 GM IN NS 2 GM/100 ML BAG IVPB SCH ×2 (10:44→22:08)
--- NOTE | 2017-02-12 12:56 | PN ---
DATE: 02/12/2017 SUBJECTIVE: The patient seen earlier today in room 377, bed 2. No fevers, no chills. No nausea. PHYSICAL EXAMINATION: VITAL SIGNS: Temperature is 99, blood pressure is 108/60, respiratory rate of 18, heart rate of 80. HEENT: Examination of HEENT is unremarkable. NECK: Supple. LUNGS: Have decreased breath sounds. HEART: Normal S1, S2. ABDOMEN: Soft, nontender. LABORATORY DATA: Reveals a white count of 15,700, hemoglobin of 10, platelets of 247. Chemistries reveals a BUN of 25, creatinine of 1.0 and BNP is 3500. Urinalysis is noted and microbiology reveals Enterococcus in the urine and a gram-positive cocci in the blood. Identification and sensitivity is pending. Enterococcus in the urine is Enterococcus faecalis, ampicillin sensitive and a repeat blood cultures from yesterday are pending. The patient is currently on ampicillin and ceftriaxone endocarditis dose. ASSESSMENT AND PLAN: An 86-year-old male seen earlier this morning in 377, bed 2 with atrial fibrillation, hypertension, pacemaker with the gram-positive cocci bacteremia with Enterococcus in the urine, must rule out Enterococcus endocarditis because of an infected pacemaker must be ruled out. We will check on the repeat blood cultures. The patient did have an echo which was read by Dr. Purcell. No mention of a vegetation is noted, although he states the aortic valve was not visualized well and the mitral valve, there is moderate mitral valve thickening, and we will most likely need a transesophageal echo pending repeat blood culture results. The patient does have a pacemaker. Will discuss with Dr. Scott. Jorgito Correa MD
--- NOTE | 2017-02-12 13:28 | PN ---
DATE: 02/12/2017 CARDIOLOGY FOLLOWUP SUBJECTIVE: The patient is comfortable in bed. PHYSICAL EXAMINATION: VITAL SIGNS: Blood pressure 108/61, heart rate is paced. NECK: Negative JVD. LUNGS: Without rales. HEART: S1, S2. EXTREMITIES: Without edema. LABORATORY DATA: The INR is 1.69 today. Hemoglobin is 10.7. IMPRESSION: 1. Pneumonia. 2. Atrial fibrillation. 3. Coagulopathy. 4. History of pacemaker placement. 5. Anemia. 6. Given these findings, we will continue on 2.5 of Coumadin and follow the PT/INR carefully. Brayden Rivera MD
--- NOTE | 2017-02-12 16:00 | CARD ---
APPROVED REPORT EKG Measurement Heart [id number] <Conclusion> Electronic ventricular pacemaker
--- NOTE | 2017-02-12 20:19 | PN ---
DATE: 02/12/2017 SUBJECTIVE: The patient is seen lying in the bed in room 377, bed 2. Again, the patient is seen today, is the third day. The patient has not been seen out of bed to chair despite my orders. I have again asked the nurses to please keep the patient out of bed to chair and out of bed to recliner. PHYSICAL EXAMINATION VITAL SIGNS: T-max is 99.7, pulse 79-80, blood pressure 118/67, 108/61, 153/80, 119/67, respiration 19, O2 sat 95%. Intake output does not appear to be correctly documented. HEAD: Examination normocephalic, atraumatic. HEENT: Examination shows pinkish conjunctivae. Anicteric sclerae. No oropharyngeal lesion. No neck rigidity. CHEST: Examination kyphosis. Positive left upper chest pacemaker. LUNGS: Examination shows occasional rhonchi. Decreased breath sound at the left base. CARDIOVASCULAR: Shows S1, S2, regular rhythm. Positive systolic murmur left sternal border, right second intercostal space, left second intercostal space. ABDOMEN: Soft. Positive bowel sound. GENITALIA: Male. RECTAL: Examination is deferred. EXTREMITY: Shows no pitting, no calf tenderness or o Homans signs. MUSCULOSKELETAL: Examination shows a body mass index of 17.2. Gait examination could not be tested. The patient is seen lying in the bed, having lunch. DIAGNOSTICS: On 02/12/2017, WBC 15.7, hemoglobin/hematocrit 10.7, 33.8, platelet 247. Granulocytes 86% segs. ESR is 18. PT is down to 18.8, INR 1.7. Sodium 133, potassium 3.7, chloride 95, CO2 31, anion gap 11, BUN 25, creatinine 1.0, GFR greater than 60, lactic acid 1.1. LFTs are normal. C-reactive protein is greater than 15. Cardiac enzymes negative. BNP has gone up to 3500 from 1650, albumin is 2.8. Urine culture is growing Enterococcus faecalis resistant to tetracycline and erythromycin. Blood cultures, gram positive for cocci. ID sensitivity not available. The patient had an abdominal and pelvis CT ordered by Dr. Correa. ECHOCARDIOGRAM: EKG reviewed. EKG shows paced rhythm. IMPRESSION AND PLAN: 1. Gram-positive cocci bacteremia. 2. Enterococcus faecalis urinary tract infection. 3. Gram-positive cocci bacteremia and sepsis. 4. Enterococcus faecalis urinary tract infection. 5. Bibasilar atelectasis and pleural effusion. 6. Distended gallbladder, etiology undetermined. 7. Bilateral renal cyst. 8. Rectal fecal retention. 9. Left hip surgery. 10. Deconditioning. 11. Gait dysfunction. 12. Low grade fever. 13. Atrial fibrillation. Coumadin dependent with iatrogenic coagulopathy. 14. Leukocytosis with granulocytosis. 15. Elevated erythrocyte sedimentation rate. 16. Normocytic anemia. 17. Granulocytosis. 18. Resolving coagulopathy. 19. Hypokalemia. 20. Prerenal kidney injury. 21. Congestive heart failure with elevated BNP 22. Elevated C-reactive protein of greater than 15. 23. Decreased HDL. 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 25. Enterococcus faecalis urinary tract infection with microscopic hematuria, bacteriuria. 26. Moderate gallbladder wall distention. 27. Concentric left ventricular hypertrophy with left ventricular ejection fraction of 55%. 28. Grade 2 pseudo normal filling dynamics. 29. Moderately thickened mitral valve with mild mitral regurgitation. 30. Mild tricuspid regurgitation and mild pulmonary arterial hypertension with right ventricular systolic pressure of 35 mmHg. 31. Permanent pacemaker implant. 32. 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 33. Moderate mitral valve thickening. 34. Not well-visualized aortic valve. 35. Coumadin dependent atrial fibrillation. 36. Hypotension. 37. Hypothyroidism. 38. Constipation. 39. Dyslipidemia. 40. Persistent staph aureus and coagulase-negative staph bacteremia and sepsis. PLAN: At this time, the patient has been ordered serial labs. Repeat blood cultures again has been ordered today because the patient's two sets of blood cultures are positive. The patient has been ordered consults Infectious Disease, TCU consult ordered, Cardiology consultation ordered. Procalcitonin level ordered, repeat pending. Current medications, Mucomyst nebulizer 20% 4 mL q. 6 hours with Xopenex nebulizer 0.63 every 6 hours, the patient is on ampicillin 2 g IV q. 6, Colace 100 mg three times a day, amiodarone 200 mg at bedtime, Coumadin 2.5 mg daily, Flonase nasal spray. The patient is started on K-Dur 20 twice a day. The patient is on Lasix 20 IV push daily, Lipitor 10 mg at bedtime, magnesium 400 twice a day, MiraLax 17 g twice a day, Percocet 2.5/325 1 tablet q. 6 p.r.n., the patient is on ProAmatine 5 mg three times a day, Protonix 40 mg twice a day, Rocephin 2 g IV q. 12, Synthroid 125 mcg daily, TobraDex eyes suspension both eyes four times a day, Tylenol 650 q. 6 p.r.n., Xalatan eye drops OU at bedtime, Zetia 10 mg at bedtime. The patient has been ordered ultrasound of the abdomen for evaluation of the distended gallbladder. The patient has been ordered chest PT. The patient is on heart healthy diet. Transesophageal echo has been ordered for evaluation of bacteremia, out of bed has been ordered, SCDs, PRIYANKA stocking, physical therapy, occupational therapy, ambulation therapy, gait training ordered. The patient updated about his condition, diagnosis, test results at length. All questions concerned answered, which he acknowledged understand. Dictated and electronically signed, not read. Signing off; Ash Scott MD
[2017-02-12] MEDS: Latanoprost 2.5 ml Opht Soln OU SCH (22:09)
[2017-02-12] MEDS: Oxycodone/Acetaminophen 2.5/325 mg Tab PO PRN (22:31)
[2017-02-13] MEDS: Acetylcysteine 20% Inhal Soln (4ml) IH SCH ×4 (01:53→19:42)
[2017-02-13] MEDS: Levalbuterol 0.63 MG/3 ML Inhal Soln UD IH SCH ×4 (01:53→19:42)
[2017-02-13] MEDS: Pantoprazole 40 mg EC Tab PO SCH ×2 (05:46→16:20)
[2017-02-13] MEDS: AMPicillin 2 GM in Sodium Chloride 0.9% 100 ML IVPB SCH ×3 (05:47→17:58)
--- NOTE | 2017-02-13 09:23 | PN ---
DATE: 02/11/2017 SUBJECTIVE: The patient is seen in room 377, bed 2. The patient is lying in the bed. The patient is having breakfast. At this time, the patient is alert, awake, responsive. The patient does not appear to be in any respiratory distress. Overnight nurse's notes were reviewed. The patient slept well. Was found to be resting comfortably in bed. PHYSICAL EXAMINATION: VITAL SIGNS: T-max 98.2, heart rate 79-80. Telemetry shows atrial fibrillation with intermittent pacing. Blood pressure in the last 12-24 hours averaging in low 100 systolic, diastolic in 60s. Respiration 16-18, O2 sat is 96-97%. HEAD: Examination normocephalic, atraumatic. HEENT: Examination shows pinkish pale conjunctivae. Anicteric sclerae. No oropharyngeal lesion. No neck rigidity. CHEST: Examination kyphosis. Positive left upper chest pacemaker. Positive crepitations, rhonchi, crackles bilaterally. CARDIOVASCULAR: Shows S1, S2, regular rhythm. Positive systolic murmur, right second intercostal space, left sternal border, left second intercostal space. ABDOMEN: Soft. Positive bowel sound. GENITALIA: Male. RECTAL: Examination is deferred. EXTREMITY: Shows no pitting edema, no calf tenderness and no Homans' sign. NEUROLOGIC: The patient is alert, awake, responsive. DIAGNOSTICS: On 02/11/2017; WBC count is down to 14, hemoglobin/hematocrit 11 and 34.3, platelet 224. Granulocytes 83% segs. PT is down to 18, INR 1.26. Chemistry significant for potassium of 3.4, BUN 29. BNP is down to 1650 from 2490. Cardiac enzymes all three sets are negative. Procalcitonin level was high at 0.53. TSH is within normal limit. Cholesterol is 146, LDL 76, HDL 28. Urine cultures, gram-positive cocci. Blood cultures, gram-positive cocci. The patient's echocardiogram and EKG done. EKG reviewed. Echocardiogram results pending. IMPRESSION AND PLAN: 1. Gram-positive cocci bacteremia. 2. Gram-positive cocci urinary tract infection. 3. Transient hypotension. 4. Leukocytosis with granulocytosis. 5. Normocytic anemia. 6. Iatrogenic coagulopathy secondary to Coumadin dependent atrial fibrillation (resolving). 7. Hypokalemia. 8. Congestive heart failure with elevated BNP. 9. Hypertriglyceridemia. 10. Decreased HDL level. 11. Hyperprolactinemia. 12. Prerenal kidney injury. 13. Gram-positive cocci urinary tract infection with microscopic hematuria, bacteriuria. 14. Cerebral cortical atrophy of the brain. 15. Deconditioning. 16. Gait dysfunction. 17. Right upper lobe scarring. 18. Small bilateral pleural effusion. 19. Right lower lobe pneumonia and infiltrate. 20. Status post permanent pacemaker implant. 21. Atrial fibrillation. Coumadin dependent. 22. Cardiomyopathy. 23. Status post left hip surgery. 24. Systemic inflammatory response syndrome with leukocytosis. 25. Gram-positive cocci bacteremia and gram-positive cocci urinary tract infection. CURRENT CONSULTATION: 1. Cardiology. 2. Infectious Disease. The patient has been ordered Mucomyst nebulizer every 6 hours. The patient is ordered ampicillin 2 g IV q. 6 hours, Colace 100 mg three times a day, amiodarone 200 mg daily, the patient's Coumadin is resumed at 2.5 mg daily, the patient has been ordered Flonase nasal spray. The patient is on Lasix 40 mg IV daily, which will be decreased to 20 mg IV daily as the patient's CAT scan and chest x-ray are not completely consistent with congestive heart failure and the patient's Lasix will be decreased to 20 mg IV daily for hypotension also. The patient is on Lipitor 10 mg daily, MiraLax 17 g twice a day, Percocet 2.5/325 1 tablet q. 6 p.r.n., the patient has been ordered potassium supplementation. The patient is ordered ProAmatine 5 mg three times a day, Protonix 40 mg twice a day. The patient is on Rocephin 2 g IV q. 12, which is ordered by Dr. Correa. The patient is also been ordered ampicillin 2 g IV q. 6. The patient received vitamin K IV and p.o. yesterday. The patient is on Xalatan eye drops. The patient is on Xopenex nebulizer 0.63 mg every 6 hours, Zetia 10 mg daily. The patient has been seen by Infectious Disease. CAT scan of the abdomen and pelvis is ordered p.o. contrast. The patient has been ordered chest PT, EKG, out of bed, Physical Therapy, Occupational Therapy, ambulation therapy ordered. The patient's echocardiogram was reviewed. Ejection fraction 55%. Right ventricular systolic pressure 35 mmHg, concentric left ventricular hypertrophy, LV function within normal limit, moderately thickened mitral valve with mild mitral regurgitation, mild tricuspid regurgitation, mild pulmonary arterial hypertension. ADDENDUM TO IMPRESSION: 1. Concentric left ventricle hypertrophy with normal left ventricle ejection fraction. 2. Grade 2 pseudo normal filling dynamics. 3. Moderately thickened mitral valve with mild mitral regurgitation. 4. Mild pulmonary hypertension and mild tricuspid regurgitation. 5. Gait dysfunction. PLAN: At this time, the patient has been ordered serial labs. Physical therapy, Ambulation Therapy, Occupational Therapy ordered. The patient will be referred for TCU evaluation. Dictated and electronically signed, not read. Signing off; Ash Scott MD
[2017-02-13 09:27] LABS: BASO # 0.01 K/mm3 (0.0-2.0); BASO % 0.1 % (0.0-3.0); EOS % 0.1 % (1.5-5.0); GRAN # 11.89 (1.4-6.5); GRAN % 79.3 % (50.0-68.0); HEMATOCRIT 32.4 % (42.0-52.0); LYMPH # 1.9 (1.2-3.4); LYMPH % 12.9 % (22.0-35.0); MEAN CELL VOLUME 91.8 fl (80.0-105.0); MEAN CORPUSCULAR HEMOGLOBIN 29.5 pg (25.0-35.0); MEAN CORPUSCULAR HGB CONC 32.1 g/dl (31.0-37.0); MEAN PLATELET VOLUME 8.9 fl (7.0-11.0); MONO # 1.1 (0.1-0.6); MONO % 7.6 % (1.0-6.0); RED CELL DISTRIBUTION WIDTH 14.9 % (11.5-14.5)
--- NOTE | 2017-02-13 09:33 | CP.PCM.PN ---
Subjective - Date & Time of Evaluation Date of Evaluation: 02/13/17 Time of Evaluation: 09:32 - Subjective Subjective: PGY-[address] Scott Pt has no acute complain. Encourage OOB Objective - Vital Signs/Intake and Output Vital Signs (last 24 hours): Temp Pulse Resp BP Pulse Ox 99.3 F 80 19 121/70 95 02/13/17 06:00 02/13/17 06:00 02/13/17 06:00 02/13/17 06:00 02/13/17 06:00 Intake and Output: 02/13/17 02/13/17 06:59 18:59 Intake Total 660 Balance 660 - Medications Medications: Current Medications Acetaminophen (Tylenol 325mg Tab) 650 mg PO Q6H PRN PRN Reason: Pain, moderate (4-7) Last Admin: 02/13/17 05:46 Dose: 650 mg Acetylcysteine (Acetylcysteine 20%) 4 ml IH [id number] [facility] Last Admin: 02/13/17 08:19 Dose: Not Given Amiodarone HCl (Cordarone) 200 mg PO HS [facility] Last Admin: 02/12/17 22:09 Dose: 200 mg Atorvastatin Calcium (Lipitor) 10 mg PO HS [facility] Last Admin: 02/12/17 22:09 Dose: 10 mg Docusate Sodium (Colace) 100 mg PO TID [facility] Last Admin: 02/12/17 18:25 Dose: Not Given Ezetimibe (Zetia) 10 mg PO HS [facility] Last Admin: 02/12/17 22:09 Dose: 10 mg Fluticasone Propionate (Flonase) 1 actuation NS DAILY [facility] Last Admin: 02/12/17 10:26 Dose: 1 spr Furosemide (Lasix) 20 mg IVP DAILY [facility] Last Admin: 02/12/17 10:27 Dose: Not Given Ampicillin 2 gm/ Sodium (Chloride) 100 mls @ 200 mls/hr IVPB Q6 [facility] PRN Reason: Protocol Stop: 03/02/17 18:01 Last Admin: 02/13/17 05:47 Dose: 200 mls/hr Ceftriaxone Sodium (Rocephin 2 Gm Ivpb) 2 gm in 100 mls @ 100 mls/hr IVPB Q12 [facility] PRN Reason: Protocol Stop: 02/25/17 22:01 Last Admin: 02/12/17 22:08 Dose: 100 mls/hr Latanoprost (Xalatan Opht) 0 ml OU HS [facility] Last Admin: 02/12/17 22:09 Dose: 2.5 ml Levalbuterol HCl (Xopenex) 0.63 mg IH [id number] [facility] Last Admin: 02/13/17 08:20 Dose: Not Given Levothyroxine Sodium (Synthroid) 125 mcg PO ACB [facility] Last Admin: 02/12/17 08:32 Dose: 125 mcg Magnesium Oxide (Mag-Ox) 400 mg PO BID [facility] Last Admin: 02/12/17 18:24 Dose: 400 mg Midodrine (Proamatine) 5 mg PO TID [facility] Last Admin: 02/12/17 18:23 Dose: 5 mg Oxycodone/Acetaminophen (Percocet 2.5/325 Mg Tab) 1 tab PO Q6H PRN PRN Reason: Pain, severe (8-10) Last Admin: 02/12/17 22:31 Dose: 1 tab Pantoprazole Sodium (Protonix Ec Tab) 40 mg PO 0600,1600 [facility] Last Admin: 02/13/17 05:46 Dose: 40 mg Polyethylene Glycol (Miralax) 17 gm PO BID [facility] Last Admin: 02/12/17 18:24 Dose: Not Given Potassium Chloride (K-Dur 20 Meq Er Tab) 20 meq PO BID [facility] Last Admin: 02/12/17 18:24 Dose: 20 meq Tobramycin/Dexamethasone (Tobradex Opht Susp) 0 ml OU QID [facility] Last Admin: 02/12/17 22:09 Dose: 1 drop Warfarin Sodium (Coumadin) 2.5 mg PO 1800 [facility] PRN Reason: Protocol Last Admin: 02/12/17 18:24 Dose: 2.5 mg - Labs Labs: 02/13/17 05:00 02/12/17 06:00 PT 18.8 SECONDS (9.4-12.5) H 02/12/17 06:00 INR 1.69 (0.93-1.08) H 02/12/17 06:00 APTT 33.9 Seconds (25.1-36.5) 02/12/17 06:00 - Constitutional Appears: No Acute Distress - Head Exam Head Exam: ATRAUMATIC, NORMAL INSPECTION, NORMOCEPHALIC - Eye Exam Eye Exam: EOMI, Normal appearance, PERRL Pupil Exam: NORMAL ACCOMODATION, PERRL - ENT Exam ENT Exam: Mucous Membranes Moist - Neck Exam Additional comments: supple - Respiratory Exam Respiratory Exam: Decreased Breath Sounds (lung bases), Clear to Ausculation Bilateral - Cardiovascular Exam Cardiovascular Exam: REGULAR RHYTHM, +S1, +S2, Murmur - GI/Abdominal Exam GI & Abdominal Exam: Soft. absent: Firm, Guarding, Tenderness - Extremities Exam Extremities Exam: absent: Calf Tenderness - Back Exam Back Exam: absent: CVA tenderness (L), CVA tenderness (R) - Neurological Exam Neurological Exam: Alert, Awake, Oriented x3 - Psychiatric Exam Psychiatric exam: Normal Affect, Normal Mood - Skin Skin Exam: Dry, Warm Assessment and Plan - Assessment and Plan (Free Text) Plan: Mr Calderón, 86 M, with pacemaker for A-fib admitted for supratherapeutic coagulopathy and HCAP. He was recently hospitalized and rehab for L hip fracture and replacement. CXR showed patchy infilatrate at R lung base. Chest CT w/o contrast showed parenchymal scarring in R lung apex and Small bilatera pleural effusion. He was put of midodrine since last hospitalization. He was found to have G+ bacteremia in the setting of pacemaker, pending EJ plan. Supratherapeutic coagulopathy, INR 9.93 s/p Vit K - warfarin 2.5 QD - daily Coags SIRS 1/, possibly due to G+ bacteremia (02/11 02/10), HCAP, Enterococcus Fasecalis UTI (02/10) Gram positive cocci bacterremia, in the setting of pacemaker R/O gall-bladder/GI related infection - Got acevedo-CT - EJ - Ceftriazone 2gm daily Conjunctivitis - tobradex Pneumonia, healthcare associated Leukocytosis 15.7, SIRS 1/ - Procalc pending 0.53--> 0.22 - Acetylcystein 20% 4ml Q6, Xopenex 0.63 Q6 CHF, diastolic, r/o ischemic cause Elevated BNP likely due to PNA vs CHF - EKG - v-pace at 80 - BNP, CPK daily; trops x 3 - CBC, CMP, Mg, coags daily - Midodrine 5 TID. BP > 100 - Laxis 20 IV daily Magnesium suppl, k-dur Q-T prolong at 580 A-fib s/p pacemaker - Amiodarone decrease to 200 hs HLD - Zetia 10. Add lipitor 10 HS Nomocytic anemia Hb 12.2, MCV 92.7 - aysmptpmatic. Observe for now Hypothyroidism - Synthroid 125 QD. TSH wnl. Glaucoma - Latanoprost Constipation - Docusate 100 TID and miralax BID Spinal stenosis - tylenol for mod pain, percocet 2.5 1q6 PRN for severe FEN - HHD, hold fluid for CHF/no fever pvx - protonix 40 BID, AE hose, SCD Consult Rivera - Cardio [place] - ID Imaging: AB ultrasound (02/12): Pending CT A/P with: small b/l pleural effusion with compressive atelectais; moderate GB distention EKG (02/12): V-pace 85, QTc 580 Echocardiogram: LVEF normal. Grade 2 filling. normal wall motion. RVSP [address]: no bleed CXR: patchy infiltrate RL base Chest CT: b/l pleural effusion, parenchymal scrarring R lung apex Disposition planning - PT: candidate for rehab - TCU eval S/D/R/w Dr. Scott
[2017-02-13 09:34] LABS: ALB/GLOB RATIO 0.9 (1.1-1.8); ALKALINE PHOSPHATASE 72 U/L (38-126); ALT/SGPT 37 U/L (7-56); AST/SGOT 29 U/L (17-59); BILIRUBIN,DIRECT 0.6 mg/dL (0.0-0.4); BILIRUBIN,TOTAL 0.7 mg/dL (0.2-1.3); BLOOD UREA NITROGEN 26 mg/dL (7-21); CALCIUM 8.3 mg/dL (8.4-10.5); CARBON DIOXIDE 31 mmol/L (21-33); CHLORIDE 96 mmol/L (98-107); GFR AFRICAN-AMERICAN > 60; GLUCOSE,RANDOM 89 mg/dL (70-110); MAGNESIUM 1.8 mg/dL (1.7-2.2); POTASSIUM 4.2 mmol/L (3.6-5.0); SODIUM 133 mmol/L (132-148); TOTAL PROTEIN 5.6 g/dL (5.8-8.3)
[2017-02-13 09:39] LABS: INR 1.99 (0.93-1.08); PARTIAL THROMBOPLASTIN TIME 34.2 Seconds (25.1-36.5)
[2017-02-13] MEDS: Fluticasone Nasal 50 mcg/Spray NS SCH (09:39)
[2017-02-13] MEDS: Tobramycin/Dexamethasone (Tobradex) Opth Sol (2.5 ml) OU SCH ×4 (09:40→23:08)
[2017-02-13] MEDS: Levothyroxine 125 MCG TAB PO SCH (09:41)
[2017-02-13] MEDS: Potassium Chloride 20 mEq ER Tab PO SCH ×2 (09:41→17:58)
[2017-02-13] MEDS: cefTRIAXone 2 GM IN NS 2 GM/100 ML BAG IVPB SCH ×2 (09:41→23:10)
[2017-02-13] MEDS: Magnesium Oxide 400 mg Tab UD PO SCH ×2 (09:41→17:58)
[2017-02-13] MEDS: POLYETHYLENE GLYCOL 3350 17 GM/Dose PACKET PO SCH ×2 (09:42→17:59)
--- NOTE | 2017-02-13 10:21 | US ---
HISTORY: DISTENDED GALL BLADDER COMPARISON: Abdomen pelvis CT without contrast 02/11/2017. TECHNIQUE: Sonographic evaluation of the abdomen. FINDINGS: LIVER: Measures 15.0 cm. Normal echogenicity of the liver parenchyma. No mass. No intrahepatic bile duct dilatation. GALLBLADDER: The gallbladder is distended but without cholelithiasis. No mural thickening or pericholecystic fluid collection identified. No sonographic Oliva sign encountered by the technologist. Common bile duct is normal in caliber. COMMON BILE DUCT: Measures 3.3 mm. No stones. No dilatation. PANCREAS: The tail of the pancreas is obscured by overlying bowel gas with remainder unremarkable. RIGHT KIDNEY: Measures 13.6 x 5.9 x 6.0cm. A large cyst is seen related to the mid to lower pole right kidney measuring 9.5 x 9.0 x 9.7 cm exophytic off the lower pole, with a more medial midpole right renal cysts also simple in appearance, measuring 2.9 x 3.3 x 3.6 cm. Both are avascular on color per ultrasound and appears simple in character overall LEFT KIDNEY: Measures 11.2 x 6.1 x 5.7cm. A midpole simple cyst measures 4.2 x 4.6 x 4.3 cm, avascular on color Doppler ultrasound. Remainder of the parenchyma is unremarkable. SPLEEN: Normal in size and contour. No mass. Spleen measures 11.6 cm. AORTA: No aneurysmal dilatation. IVC: Unremarkable. OTHER FINDINGS: None. IMPRESSION: Bilateral renal cysts are identified in the tail of pancreas obscured by overlying bowel gas with remainder of the ultrasound examination appearing unremarkable.
--- NOTE | 2017-02-13 13:53 | PN ---
DATE: 02/13/2017 CARDIOLOGY FOLLOWUP SUBJECTIVE: The patient is weak in bed without acute distress. PHYSICAL EXAMINATION: VITAL SIGNS: The patient's temperature is 99.3, blood pressure 113/69, heart rate is paced at 18. NECK: Negative JVD. LUNGS: Without rales. HEART: S1, S2. EXTREMITIES: Without edema. LABORATORY DATA: White count is down to 15,000, hemoglobin is 10.4, BUN and creatinine unremarkable. ProBNP remains elevated 4560 The blood cultures are 4/4 positive. IMPRESSION: 1. Sepsis. 2. Positive bacteremia. 3. History of pacemaker. 4. Anemia. 5. History of chronic atrial fibrillation. PLAN: Given these findings, we will need to rule out endocarditis. We will obtain a EJ to rule out vegetations. I have discussed this with the patient in detail. The patient apparently is very familiar with EJ having undergone the procedure 2 years ago. He agrees. We will arrange for the morning. Brayden Rivera MD
--- NOTE | 2017-02-13 17:40 | CP.PCM.PN ---
Subjective - Date & Time of Evaluation Date of Evaluation: 02/13/17 Time of Evaluation: 11:05 - Subjective Subjective: No fevers, no chest pain, no diarrhea, no abdominal pain. Objective - Vital Signs/Intake and Output Vital Signs (last 24 hours): Temp Pulse Resp BP Pulse Ox 99.3 F 80 19 113/69 95 02/13/17 06:00 02/13/17 06:00 02/13/17 06:00 02/13/17 09:41 02/13/17 06:00 Intake and Output: 02/13/17 02/13/17 06:59 18:59 Intake Total 660 Balance 660 - Medications Medications: Current Medications Acetaminophen (Tylenol 325mg Tab) 650 mg PO Q6H PRN PRN Reason: Pain, moderate (4-7) Last Admin: 02/13/17 05:46 Dose: 650 mg Acetylcysteine (Acetylcysteine 20%) 4 ml IH [id number] [facility] Last Admin: 02/13/17 08:19 Dose: Not Given Amiodarone HCl (Cordarone) 200 mg PO HS [facility] Last Admin: 02/12/17 22:09 Dose: 200 mg Atorvastatin Calcium (Lipitor) 10 mg PO HS [facility] Last Admin: 02/12/17 22:09 Dose: 10 mg Docusate Sodium (Colace) 100 mg PO TID [facility] Last Admin: 02/13/17 09:42 Dose: Not Given Ezetimibe (Zetia) 10 mg PO HS [facility] Last Admin: 02/12/17 22:09 Dose: 10 mg Fluticasone Propionate (Flonase) 1 actuation NS DAILY [facility] Last Admin: 02/13/17 09:39 Dose: 2 spr Furosemide (Lasix) 20 mg IVP DAILY [facility] Last Admin: 02/13/17 09:41 Dose: 20 mg Ampicillin 2 gm/ Sodium (Chloride) 100 mls @ 200 mls/hr IVPB Q6 [facility] PRN Reason: Protocol Stop: 03/02/17 18:01 Last Admin: 02/13/17 05:47 Dose: 200 mls/hr Ceftriaxone Sodium (Rocephin 2 Gm Ivpb) 2 gm in 100 mls @ 100 mls/hr IVPB Q12 [facility] PRN Reason: Protocol Stop: 02/25/17 22:01 Last Admin: 02/13/17 09:41 Dose: 100 mls/hr Latanoprost (Xalatan Opht) 0 ml OU HS [facility] Last Admin: 02/12/17 22:09 Dose: 2.5 ml Levalbuterol HCl (Xopenex) 0.63 mg IH [id number] [facility] Last Admin: 02/13/17 08:20 Dose: Not Given Levothyroxine Sodium (Synthroid) 125 mcg PO ACB [facility] Last Admin: 02/13/17 09:41 Dose: 125 mcg Magnesium Oxide (Mag-Ox) 400 mg PO BID [facility] Last Admin: 02/13/17 09:41 Dose: 400 mg Midodrine (Proamatine) 5 mg PO TID [facility] Last Admin: 02/13/17 09:41 Dose: 5 mg Oxycodone/Acetaminophen (Percocet 2.5/325 Mg Tab) 1 tab PO Q6H PRN PRN Reason: Pain, severe (8-10) Last Admin: 02/12/17 22:31 Dose: 1 tab Pantoprazole Sodium (Protonix Ec Tab) 40 mg PO 0600,1600 [facility] Last Admin: 02/13/17 05:46 Dose: 40 mg Polyethylene Glycol (Miralax) 17 gm PO BID [facility] Last Admin: 02/13/17 09:42 Dose: Not Given Potassium Chloride (K-Dur 20 Meq Er Tab) 20 meq PO BID [facility] Last Admin: 02/13/17 09:41 Dose: 20 meq Tobramycin/Dexamethasone (Tobradex Opht Susp) 0 ml OU QID [facility] Last Admin: 02/13/17 09:40 Dose: 2 drop Warfarin Sodium (Coumadin) 2.5 mg PO 1800 [facility] PRN Reason: Protocol Last Admin: 02/12/17 18:24 Dose: 2.5 mg - Labs Labs: 02/13/17 05:00 02/13/17 05:00 PT 22.2 SECONDS (9.4-12.5) H 02/13/17 05:00 INR 1.99 (0.93-1.08) H 02/13/17 05:00 APTT 34.2 Seconds (25.1-36.5) 02/13/17 05:00 - Constitutional Appears: Non-toxic, No Acute Distress - Head Exam Head Exam: NORMAL INSPECTION - Neck Exam Neck Exam: absent: Meningismus - Respiratory Exam Respiratory Exam: Decreased Breath Sounds - Cardiovascular Exam Cardiovascular Exam: +S1, +S2 - GI/Abdominal Exam GI & Abdominal Exam: Soft. absent: Tenderness Assessment and Plan - Assessment and Plan (Free Text) Plan: Assessment sepsis due to E. faecalis bacteremia R/O endocarditis in this patient with pacemaker; urine cx are also positive for the bacteria but it could be just spillage from bacteremia elevated INR HTN hypothyroidism left hip surgery in 2016 atrial fibrillation Plan continue ampicillin and rocephin and will get repeat blood cx; reviewed 2D echo which did not show vegetations; recommend EJ will monitor clinically
[2017-02-13] MEDS: Latanoprost 2.5 ml Opht Soln OU SCH (23:09)
[2017-02-13] MEDS: Oxycodone/Acetaminophen 2.5/325 mg Tab PO PRN (23:32)
[2017-02-14] MEDS: Levalbuterol 0.63 MG/3 ML Inhal Soln UD IH SCH ×4 (01:34→21:00)
[2017-02-14] MEDS: Acetylcysteine 20% Inhal Soln (4ml) IH SCH ×4 (01:34→21:00)
[2017-02-14] MEDS: AMPicillin 2 GM in Sodium Chloride 0.9% 100 ML IVPB SCH ×5 (01:53→23:45)
--- NOTE | 2017-02-14 02:17 | PN ---
DATE: 02/13/2017 SUBJECTIVE: The patient is seen again in lying in bed in room 377 bed two. The patient was seen and examined with the medical charge entry specialist. The patient's vital signs, diagnostic data, all imaging study and recommendation by all physician involved reviewed. The patient was seen with the medical charge entry specialist and examined with the medical charge entry specialist. IMPRESSION AND PLAN 1. Enterococcus faecalis bacteremia, sepsis and Enterococcus faecalis urinary tract infection. 2. Low grade fever. 3. Coumadin dependent atrial fibrillation. 4. Hypotension. 5. Hypoxemia. 6. Gait dysfunction. 7. Questionable functional quadriplegia. 8. Persistent refractory leukocytosis with granulocytosis. 9. Elevated erythrocyte sedimentation rate of 80. 10. Normocytic anemia. 11. Hypokalemia. 12. Hypertriglyceridemia with decreased HDL. 13. Hyper-procalcitoninemia. 14. Prerenal kidney injury. 15. Questionable congestive heart failure with elevated brain natriuretic peptide. 16. Elevated C-reactive protein. 17. Microscopic hematuria and bacteriuria. 18. Persistent Enterococcus faecalis bacteremia and sepsis. 19. Distended gallbladder without cholelithiasis. 20. Right renal cyst and right renal exophytic cyst. 21. Left renal cyst. 22. Bilateral renal cysts. 23. Obscured pancreas. 24. Small bilateral pleural effusion, compressive atelectasis. 25. Moderately distended gallbladder. 26. Homogeneous pancreas. 27. Rectal fecal retention. 28. Left total hip replacement. 29. Cerebral cortical atrophy of the brain. 30. Right apical lung parenchymal scarring. 31. Small bilateral pleural effusion. 32. Concentric left ventricular hypertrophy with left ventricular ejection fraction of 55%. 33. Grade II pseudo normal filling dynamics. 34. Moderately calcified mitral valve with mitral regurgitation and mild pulmonary arterial hypertension. Mild tricuspid regurgitation with right ventricular systolic pressure of 35 mmHg. 35. Not well-visualized aortic valve. 36. Permanent pacemaker implant. 37. Possible endocarditis with persistent bacteremia and sepsis. PLAN: At this time, the patient has been ordered repeat lab work. Current consultation Cardiology and Infectious Diseases. The patient's case referred to TCU. The patient is scheduled for the transesophageal echo tomorrow for evaluation of endocarditis. MEDICATIONS: The patient's current medications: 1. Mucomyst nebulizer every 6 hours. 2. Xopenex nebulizer every 6 hours round the clock. 3. Ampicillin 2 g IV q. 6 hours. 4. Colace 100 mg three times a day. 5. Amiodarone 200 mg at bedtime. 6. Coumadin 2.5 mg daily. 7. Flonase nasal spray daily. 8. K-Dur 20 mEq twice a day. 9. Lasix 40 mg IV daily ordered by Dr. Brayden Rivera. 10. Lipitor 10 mg at bedtime. 11. Magnesium oxide 400 mg twice a day. 12. MiraLax 17 grams twice a day. 13. Percocet 2.5/325 mg one tablet q. 6 hours. p.r.n. 14. ProAmatine 5 mg three times a day. 15. Protonix 40 mg twice a day. 16. Rocephin 2 g IV q. 12 hours. 17. Synthroid 125 mcg p.o. daily. 18. TobraDex ointment q.i.d. to both eyes. 19. Tylenol 650 mg q. 6 hours. p.r.n. 20. Xalatan eye drops. 21. Zetia 10 mg daily. RECOMMENDATIONS: The patient is on chest PT and transesophageal echo ordered.. The patient is on heart healthy diet. The patient has been ordered out of bed, physical therapy, and occupational therapy. The patient has been updated about his condition, diagnosis, treatment plan and management plan, which he acknowledged understand. All questions, concerned answered. For further details of the patient's today's progress note, please refer to the progress note by the medical charge entry specialist. Dictated and electronically signed, not read. Signing off Ash Scott MD Ash Scott MD
[2017-02-14] MEDS: Pantoprazole 40 mg EC Tab PO SCH ×2 (06:36→17:24)
[2017-02-14] MEDS: Oxycodone/Acetaminophen 2.5/325 mg Tab PO PRN (06:39)
[2017-02-14 06:43] LABS: BASO # 0.01 K/mm3 (0.0-2.0); BASO % 0.1 % (0.0-3.0); EOS % 0.1 % (1.5-5.0); GRAN # 11.27 (1.4-6.5); GRAN % 78.5 % (50.0-68.0); HEMATOCRIT 32.6 % (42.0-52.0); LYMPH # 2.1 (1.2-3.4); LYMPH % 14.5 % (22.0-35.0); MEAN CELL VOLUME 90.8 fl (80.0-105.0); MEAN CORPUSCULAR HEMOGLOBIN 29.5 pg (25.0-35.0); MEAN CORPUSCULAR HGB CONC 32.5 g/dl (31.0-37.0); MONO % 6.8 % (1.0-6.0); RED CELL DISTRIBUTION WIDTH 14.8 % (11.5-14.5); WHITE BLOOD COUNT 14.4 10^3/ul (4.5-11.0)
[2017-02-14 06:55] LABS: INR 2.46 (0.93-1.08); PARTIAL THROMBOPLASTIN TIME 36.3 Seconds (25.1-36.5)
[2017-02-14 07:11] LABS: ALB/GLOB RATIO 0.9 (1.1-1.8); ALKALINE PHOSPHATASE 73 U/L (38-126); ALT/SGPT 43 U/L (7-56); AST/SGOT 29 U/L (17-59); BILIRUBIN,DIRECT 0.4 mg/dL (0.0-0.4); BILIRUBIN,TOTAL 0.4 mg/dL (0.2-1.3); BLOOD UREA NITROGEN 29 mg/dL (7-21); CALCIUM 8.3 mg/dL (8.4-10.5); CARBON DIOXIDE 28 mmol/L (21-33); CHLORIDE 99 mmol/L (98-107); GFR AFRICAN-AMERICAN > 60; GLUCOSE,RANDOM 88 mg/dL (70-110); MAGNESIUM 1.9 mg/dL (1.7-2.2); POTASSIUM 4.3 mmol/L (3.6-5.0); SODIUM 132 mmol/L (132-148); TOTAL PROTEIN 5.8 g/dL (5.8-8.3)
[2017-02-14] MEDS ORDERED: Morphine 2 mg/ml ISec IVP STA (08:45)
[2017-02-14] MEDS: Levothyroxine 125 MCG TAB PO SCH (08:57)
[2017-02-14] MEDS: Fluticasone Nasal 50 mcg/Spray NS SCH (10:17)
[2017-02-14] MEDS ORDERED: Sodium Chloride 0.9% 1,000 ML IV SCH (11:00)
[2017-02-14] MEDS ORDERED: Midazolam 2 MG/2 ML VIAL ONE (11:13)
[2017-02-14] MEDS ORDERED: Flumazenil 0.1 mg/ml Inj (5ml) IVP ONE (11:14)
[2017-02-14] MEDS ORDERED: Naloxone 0.4 mg/ml Inj (Adult) ONE (11:14)
[2017-02-14] MEDS ORDERED: Benzocaine/Butamben/Tetracai 14-2-2% TOP Spray TOP ONE (11:15)
[2017-02-14] MEDS ORDERED: Midazolam 2 MG/2 ML VIAL IV ONE ×4 (11:22→11:34)
--- NOTE | 2017-02-14 12:24 | CARD ---
APPROVED REPORT EXAM: Two-dimensional and M-mode echocardiogram with Doppler and color Doppler. INDICATION Infection : Rule out subacute bacterial endocarditis Mitral Valve E/A ratio0.0 TDI E/Lateral E'0.0E/Medial E'0.0 Tricuspid Valve TR Peak [id number] [id number] Peak Gr.38mmHg [id number] Reason For Test : Rule out endocarditis. PROCEDURE After obtaining informed consent, patient underwent transesophageal echo in the Echo Lab. Type of Sedation : Conscious Sedation Sedation was administered by Dr. flores. Sedation was achieved with Versed and , Fentanyl 3mg and 50 mcg intravenously. Transesophageal probe was inserted and advanced into esophagus without difficulty. Echo enhancement indication: R/O Septal defect. Echo enhancement agent administered: Agitated Saline The JE was performed without complications. Throughout the procedure, the blood pressure, pulse oximetry, cardiac rhythm, and rate were monitored. The patient tolerated the procedure without adverse effects. Recovery from conscious sedation was uneventful and vital signs were stable. LEFT VENTRICLE The left ventricle is normal size. There is mild left ventricular hypertrophy. The left ventricular function is normal.EF-55% There is normal LV segmental wall motion. No left ventricle thrombus noted on this study. There is no ventricular septal defect visualized. There is no left ventricular aneurysm. There is no mass noted in the left ventricle. RIGHT VENTRICLE The right ventricle is normal size. There is normal right ventricular wall thickness. The right ventricular systolic function is normal. ATRIA The left atrium is moderately dilated. The right atrium is mildly dilated. The interatrial septum is intact with no evidence for an atrial septal defect, by color flw and Bubble study. AORTIC VALVE The aortic valve is mildly thickened. There is mild to moderate aortic regurgitation. There is no aortic valvular stenosis. There is no aortic valvular vegetation. MITRAL VALVE The mitral valve leaflets are thickened. Echogenic Mobile structure 1.35/0.75 cm attached to Posterior Mitral valve leaflet towards Left atrium, C/w vegetation. Another very small Vegetation attached to Anterior leaflet near the root in the direction of MR Jet. There is no evidence of mitral valve prolapse. There is no mitral valve stenosis. Mitral regurgitation is severe. The mitral regurgitant jet is eccentrically directed, ( anteriorly) TRICUSPID VALVE The tricuspid valve leaflets display thickening. There is mild tricuspid regurgitation.RVSP_48 mm of Hg. There is no tricuspid valve prolapse or vegetation. There is no tricuspid valve stenosis. PULMONIC VALVE The pulmonic valve is mildly thickened. There is mild pulmonic valvular regurgitation. There is no pulmonic valvular stenosis. GREAT VESSELS The aortic root is normal in size. The ascending aorta is normal in size. The pulmonary artery is normal. The IVC is normal in size and collapses >50% with inspiration. PERICARDIAL EFFUSION There istrace pericardial effusion. There is no pleural effusion. <Conclusion> Mitral Valve endocarditis. Preserved Lv Fx. Ef- 60-65%. Sever MR. Mild to Moderate AR. Mild TR. RVSP-48 mmof Hg. NO PFO Velocity in DAVIAN more than 0.4 m/s Modertate flat plaque in Descending aorta noted. CC; DR. Rivera.
[2017-02-14] MEDS: Potassium Chloride 20 mEq ER Tab PO SCH ×2 (14:18→17:25)
[2017-02-14] MEDS: Magnesium Oxide 400 mg Tab UD PO SCH ×2 (14:19→17:25)
[2017-02-14] MEDS: cefTRIAXone 2 GM IN NS 2 GM/100 ML BAG IVPB SCH ×2 (14:20→22:31)
[2017-02-14] MEDS: POLYETHYLENE GLYCOL 3350 17 GM/Dose PACKET PO SCH ×2 (14:21→17:24)
[2017-02-14] MEDS: Tobramycin/Dexamethasone (Tobradex) Opth Sol (2.5 ml) OU SCH ×4 (14:22→22:38)
--- NOTE | 2017-02-14 16:23 | PN ---
DATE: 02/14/2017 SUBJECTIVE: The patient is in bed, in no acute distress, nontoxic on exam. PHYSICAL EXAMINATION: VITAL SIGNS: Temperature is 98, blood pressure is 130/80, respiratory rate of 18. HEENT: Unremarkable. NECK: Supple. LUNGS: Have decreased breath sounds. HEART: Normal S1 and S2. ABDOMEN: Soft, nontender. Laboratory examination reveals a white count of 14,400, hemoglobin of 10. Chemistries reveal a BUN of 29, creatinine of 1.1, procalcitonin 0.22. Urinalysis is noted. Microbiology reveals all the blood cultures are positive for Enterococcus faecalis and sensitive to ampicillin and sensitive penicillin. The patient had an echo by Dr. Ontiveros today which reveals a large-size 1.3 cm vegetation on the posterior leaflet of the mitral valve, and review of orders reveals the patient to be on ampicillin and ceftriaxone. ASSESSMENT/PLAN: An 86-year-old with sepsis with Enterococcus faecalis; mitral valve endocarditis; large size vegetation of 1.3 cm in a patient with a pacemaker and currently on ampicillin and Rocephin. Will need minimum of 6 weeks of antibiotics; the time, the cultures are negative. Thus far, all the cultures are positive, one bottle is negative from 02/12/2017; however, the other one is still positive. We will repeat blood cultures x2 and ideally the patient should have thoracic surgical consultation for valve replacement; case discussed with Dr. Ontiveros regarding the patient's condition. He is a poor surgical candidate. We will discuss with PMD. Prognosis is poor for this patient who is cachectic, wasting syndrome, frail, elderly male with BMI of only 17. Jorgito Correa MD
--- NOTE | 2017-02-14 19:12 | PN ---
CARDIOLOGY FOLLOWUP DATE: 02/14/2017 SUBJECTIVE: The patient tolerated EJ well. He is awake without shortness of breath. OBJECTIVE: VITAL SIGNS: Blood pressure 106/64, heart rate is in the 70s. NECK: Negative JVD. LUNGS: Without rales. HEART: Reveal S1, S2 with a systolic murmur. EXTREMITIES: Without edema. LABORATORY DATA: White count is 14,000. Chemistries; BUN and creatinine unremarkable. EJ report reveals vegetation of the mitral valve with mitral regurgitation. IMPRESSION: 1. Bacteremia. 2. Subacute bacterial endocarditis. 3. Mitral regurgitation. 4. History of pacemaker placement. 5. History of mitral valve replacement. PLAN: Currently, the patient remains hemodynamically stable. We will continue with medical therapy on IV antibiotics for now. There is no plans for surgical intervention at this time. Brayden Rivera MD
[2017-02-14] MEDS: Latanoprost 2.5 ml Opht Soln OU SCH (22:34)
[2017-02-14] MEDS ORDERED: DiphenhydrAMINE 12.5 mg/5 ml LIQ UD (5 ml) PO STA (23:32)
[2017-02-15] MEDS: Oxycodone/Acetaminophen 2.5/325 mg Tab PO PRN (00:43)
[2017-02-15] MEDS: Acetylcysteine 20% Inhal Soln (4ml) IH SCH ×4 (03:00→20:30)
[2017-02-15] MEDS: Levalbuterol 0.63 MG/3 ML Inhal Soln UD IH SCH ×4 (03:00→20:30)
--- NOTE | 2017-02-15 03:59 | PN ---
DATE: 02/14/2017 SUBJECTIVE: The patient is seen lying in the cardiology holding area because the patient's transesophageal echo is delayed because the patient received a dose of morphine IV in the morning by the medical communication specialist. The patient's overnight nurse's notes were reviewed.. The patient stayed in bed most of the time, complaining of pain 3/10. The patient was found to be alert, awake, responsive. The patient was seen by the marriage and family social worker. The patient is interested in going back to [facility] if accepted. The patient's case referred for TCU and subacute rehab. The patient's documents were faxed over to at [facility] in [facility]. PHYSICAL EXAMINATION: VITAL SIGNS: T-max 98.3 to 98.2, heart rate 78 to 83. Telemetry shows paced rhythm. T-max 98.2, heart rate 78 to 80, blood pressure is 116/69, 106/64, 103/66, 168/90, 103/68, 100/64, 99-61, 105/65, 121/66, 112/65, 127/72, 128/77, 135/80. Respirations 18-20, O2 sat 97% to 98%. HEAD: Normocephalic and atraumatic. HEENT: Shows pinkish pale conjunctivae. Anicteric sclerae. No oropharyngeal lesion. No neck rigidity. CHEST: Kyphosis. Positive left upper chest pacemaker. LUNGS: Show no rales, crackles, or wheezing. CARDIOVASCULAR: Shows S1, S2, regular rhythm. ABDOMEN: Soft. Positive bowel sound. GENITALIA: Male. RECTAL: Deferred. EXTREMITY: Shows no pitting, no calf numbness, no Bryce's signs. The patient is able to move upper lower extremity without assistance. Gait examination is deferred. The patient is lying in the bed. Motor strength appears to be 5/5 in upper and lower extremity. DIAGNOSTIC DATA: The patient's CBC from 02/14/2017, chemistry, PT/INR reviewed. WBC still elevated at 14.4, hemoglobin and hematocrit 10.6 and 32.6, platelet 277. Granulocytes 78% segs. PT is 27.6, INR 2.46. Sodium 132, potassium 4.3, chloride 99, CO2 of 28, anion gap 10, BUN 29, creatinine 1.1, GFR greater than 60, glucose is 88, calcium 8.3, magnesium 1.9. LFTs are normal. BNP is 3590. Procalcitonin level is 0.22. Blood cultures, Enterococcus faecalis. Urine cultures, Enterococcus faecalis. Repeat urine cultures, 02/12/2017, negative. Repeat blood cultures, 02/12/2017, gram-positive cocci. The patient's abdominal ultrasound was noted. The patient's EJ was noted, which shows mitral valve endocarditis. IMPRESSION AND PLAN: 1. Enterococcus faecalis bacteremia, sepsis, and urinary tract infection, and gram-positive cocci bacteremia and sepsis. 2. Mitral valve endocarditis with left ventricular ejection fraction of 60-65%. 3. Severe mitral regurgitation. 4. Moderate aortic regurgitation. 5. Mild tricuspid regurgitation with right ventricular systolic pressure of 44 mmHg. 6. Descending aorta, moderate flat plaque. 7. Mild left ventricular hypertrophy. 8. Moderately dilated left atrium and mildly dilated right atrium. 9. Mildly thickened aortic valve. 10. Moderate aortic regurgitation. 11. Thickened mitral valve leaflet. 12. Severe mitral regurgitation with eccentrically directed mitral regurgitation jet. 13. Thickened tricuspid valve leaflet. 14. Mild tricuspid regurgitation with right ventricular systolic pressure of 48 mmHg. 15. Trace pericardial effusion. 16. Distended gallbladder without cholelithiasis. 17. Bilateral renal cyst. 18. Hypotension. 19. Gait dysfunction. 20. Deconditioning. 21. Leukocytosis with granulocytosis. 22. Normocytic anemia. 23. Elevated erythrocyte sedimentation rate. 24. Status post iatrogenic coagulopathy. 25. Coumadin-dependent atrial fibrillation. 26. Hypokalemia. 27. Prerenal kidney injury. 28. Possible diastolic dysfunction with diastolic right-sided congestive heart failure with elevated BNP. 29. Hypoalbuminemia. 30. Elevated C-reactive protein of greater than 15. 31. Hypokalemia. 32. Hypertriglyceridemia. 33. Hypercholesteremia with decreased HDL. 34. Trace microscopic hematuria, bacteriuria, and Enterococcus faecalis urinary tract infection. 35. Small bilateral pleural effusion with compressive atelectasis. 36. Moderately distended gallbladder. 37. Multiple bilateral renal cysts. 38. Rectal fecal stasis and retention. 39. Status post left total hip replacement. 40. Permanent pacemaker implant. 41. Coumadin-dependent atrial fibrillation. 42. Bacteremia and sepsis. 43. Cachexia. 45. Deconditioning. PLAN: At this time, the patient has been ordered repeat labs. Repeat blood culture orders today. Infectious disease, cardiology recommendations are noted. The patient has been ordered repeat blood cultures. The patient has been ordered evaluation by Interventional radiology for a PICC line placement. The patient's case is referred for TCU. CURRENT MEDICATIONS: The patient is on: 1. Mucomyst nebulizer with Xopenex nebulizer every 6 hours. 2. Ampicillin 2 g IV q.6. 3. Cepacol lozenges q.2 hours p.r.n. 4. Colace 100 mg three times a day. 5. Amiodarone 200 mg at bedtime. 6. Coumadin 2.5 mg daily. 7. Flonase 1 puff each nostril daily. 8. K-Dur 20 mEq twice a day. 9. Lasix 40 mg IV daily. 10. Lipitor 10 mg at bedtime. 11. Magnesium oxide 400 twice a day. 12. MiraLax 17 g twice a day. 13. Percocet 2.5/325 1 tablet q.6 p.r.n. 14. ProAmatine 5 mg three times a day. 15. Protonix 40 mg daily. 16. Rocephin 2 g IV q.12. 17. Synthroid 125 mcg daily. 18. TobraDex ointment to both eyes q.i.d. 19. Tylenol p.r.n. 20. Xalatan eyedrops. 21. Xopenex nebulizer 0.63 q.6. 22. Zetia 10 mg at bedtime. Chest PT, heart-healthy diet, out of bed, PRIYANKA stockings, SCDs, occupational therapy, physical therapy ordered. The patient has been updated about his condition, diagnosis, treatment plan, management plan, need for long-term IV antibiotics, which the patient acknowledged and understood. All questions concerned answered. Ash Scott MD
[2017-02-15] MEDS: AMPicillin 2 GM in Sodium Chloride 0.9% 100 ML IVPB SCH ×3 (05:18→18:01)
[2017-02-15] MEDS: Benzocaine/Menthol (Cepacol) Lozenge MT PRN (05:21)
[2017-02-15] MEDS: Pantoprazole 40 mg EC Tab PO SCH ×2 (06:02→18:03)
[2017-02-15 06:54] LABS: PARTIAL THROMBOPLASTIN TIME 36.9 Seconds (25.1-36.5)
[2017-02-15 06:57] LABS: ALB/GLOB RATIO 0.9 (1.1-1.8); ALKALINE PHOSPHATASE 73 U/L (38-126); ALT/SGPT 32 U/L (7-56); AST/SGOT 34 U/L (17-59); BILIRUBIN,DIRECT 0.4 mg/dL (0.0-0.4); BILIRUBIN,TOTAL 0.5 mg/dL (0.2-1.3); BLOOD UREA NITROGEN 25 mg/dL (7-21); CALCIUM 8.5 mg/dL (8.4-10.5); CARBON DIOXIDE 29 mmol/L (21-33); CHLORIDE 96 mmol/L (98-107); GFR AFRICAN-AMERICAN > 60; GLUCOSE,RANDOM 80 mg/dL (70-110); MAGNESIUM 2.1 mg/dL (1.7-2.2); POTASSIUM 4.1 mmol/L (3.6-5.0); SODIUM 132 mmol/L (132-148); TOTAL PROTEIN 5.8 g/dL (5.8-8.3)
[2017-02-15 07:37] LABS: BASO # 0.01 K/mm3 (0.0-2.0); BASO % 0.1 % (0.0-3.0); EOS % 0.3 % (1.5-5.0); GRAN # 10.23 (1.4-6.5); GRAN % 76.9 % (50.0-68.0); HEMATOCRIT 34.3 % (42.0-52.0); LYMPH # 2.2 (1.2-3.4); LYMPH % 16.2 % (22.0-35.0); MEAN CELL VOLUME 91.2 fl (80.0-105.0); MEAN CORPUSCULAR HEMOGLOBIN 28.7 pg (25.0-35.0); MEAN CORPUSCULAR HGB CONC 31.5 g/dl (31.0-37.0); MEAN PLATELET VOLUME 9.5 fl (7.0-11.0); MONO # 0.9 (0.1-0.6); MONO % 6.5 % (1.0-6.0); RED CELL DISTRIBUTION WIDTH 14.9 % (11.5-14.5); WHITE BLOOD COUNT 13.3 10^3/ul (4.5-11.0)
[2017-02-15] MEDS: Levothyroxine 125 MCG TAB PO SCH (08:17)
--- NOTE | 2017-02-15 09:09 | PN ---
DATE: 02/15/2017 CARDIOLOGY FOLLOWUP NOTE SUBJECTIVE: The patient is lying flat in bed. He denies shortness of breath. PHYSICAL EXAMINATION: VITAL SIGNS: Blood pressure is 115/73 and the heart rate in the 80s. NECK: Negative JVD. LUNGS: Without rales. HEART: Reveals a short systolic ejection murmur. EXTREMITIES: Without edema. LABORATORY DATA: White count is down to 13.3 and hemoglobin is 10.8. Chemistries: BUN and creatinine are unremarkable. IMPRESSION: 1. Endocarditis. 2. Mitral regurgitation. 3. History of pacemaker placement. 4. History of documented bacteremia. PLAN: Given these findings, the patient felt for hemodynamically stable and is not compromised by mitral regurgitation. The patient is a poor surgical candidate. We will continue antibiotic at this time. We will monitor for hemodynamic instability before considering mitral valve surgery. Brayden Rivera MD
--- NOTE | 2017-02-15 09:51 | CP.PCM.PN ---
Subjective - Date & Time of Evaluation Date of Evaluation: 02/15/17 Time of Evaluation: 08:00 - Subjective Subjective: PGY-[address] Scott Pt complained that he has urinary hesitency. Pt has no BM yet. He worried that the bedside commode worsen the pain of the recent repaired hip, Encouraged pt to eat with laxative. Objective - Vital Signs/Intake and Output Vital Signs (last 24 hours): Temp Pulse Resp BP Pulse Ox 98.8 F 80 20 115/73 98 02/15/17 06:00 02/15/17 06:00 02/15/17 06:00 02/15/17 06:00 02/15/17 06:00 Intake and Output: 02/15/17 02/15/17 06:59 18:59 Intake Total 200 0 Balance 200 0 - Medications Medications: Current Medications Acetaminophen (Tylenol 325mg Tab) 650 mg PO Q6H PRN PRN Reason: Pain, moderate (4-7) Last Admin: 02/14/17 02:09 Dose: 650 mg Acetylcysteine (Acetylcysteine 20%) 4 ml IH [id number] [facility] Last Admin: 02/15/17 08:30 Dose: Not Given Amiodarone HCl (Cordarone) 200 mg PO HS [facility] Last Admin: 02/14/17 22:31 Dose: 200 mg Atorvastatin Calcium (Lipitor) 10 mg PO HS [facility] Last Admin: 02/14/17 22:31 Dose: 10 mg Benzocaine/Menthol (Cepacol Sore Throat) 1 cher MT Q2H PRN PRN Reason: Sore Throat Docusate Sodium (Colace) 100 mg PO TID [facility] Last Admin: 02/14/17 17:24 Dose: 100 mg Ezetimibe (Zetia) 10 mg PO HS [facility] Last Admin: 02/14/17 22:31 Dose: 10 mg Fluticasone Propionate (Flonase) 1 actuation NS DAILY [facility] Last Admin: 02/14/17 10:17 Dose: 1 spr Furosemide (Lasix) 40 mg IVP DAILY [facility] Last Admin: 02/14/17 14:31 Dose: 40 mg Ampicillin 2 gm/ Sodium (Chloride) 100 mls @ 200 mls/hr IVPB Q6 [facility] PRN Reason: Protocol Stop: 03/02/17 18:01 Last Admin: 02/15/17 05:18 Dose: 200 mls/hr Ceftriaxone Sodium (Rocephin 2 Gm Ivpb) 2 gm in 100 mls @ 100 mls/hr IVPB Q12 [facility] PRN Reason: Protocol Stop: 02/25/17 22:01 Last Admin: 02/14/17 22:31 Dose: 100 mls/hr Latanoprost (Xalatan Opht) 0 ml OU HS [facility] Last Admin: 02/14/17 22:34 Dose: 2.5 ml Levalbuterol HCl (Xopenex) 0.63 mg IH [id number] [facility] Last Admin: 02/15/17 08:30 Dose: Not Given Levothyroxine Sodium (Synthroid) 125 mcg PO ACB [facility] Last Admin: 02/15/17 08:17 Dose: 125 mcg Magnesium Oxide (Mag-Ox) 400 mg PO BID [facility] Last Admin: 02/14/17 17:25 Dose: 400 mg Midodrine (Proamatine) 5 mg PO TID [facility] Last Admin: 02/14/17 17:25 Dose: 5 mg Oxycodone/Acetaminophen (Percocet 2.5/325 Mg Tab) 1 tab PO Q6H PRN PRN Reason: Pain, severe (8-10) Last Admin: 02/15/17 00:43 Dose: 1 tab Pantoprazole Sodium (Protonix Ec Tab) 40 mg PO 0600,1600 [facility] Last Admin: 02/15/17 06:02 Dose: 40 mg Polyethylene Glycol (Miralax) 17 gm PO BID [facility] Last Admin: 02/14/17 17:24 Dose: 17 gm Potassium Chloride (K-Dur 20 Meq Er Tab) 20 meq PO BID [facility] Last Admin: 02/14/17 17:25 Dose: 20 meq Tobramycin/Dexamethasone (Tobradex Opht Susp) 0 ml OU QID [facility] Last Admin: 02/14/17 22:38 Dose: 2 drop Warfarin Sodium (Coumadin) 2.5 mg PO 1800 [facility] PRN Reason: Protocol Last Admin: 02/14/17 17:24 Dose: 2.5 mg - Labs Labs: 02/15/17 06:00 02/15/17 06:00 PT 33.7 SECONDS (9.4-12.5) H 02/15/17 06:00 INR 3.00 (0.93-1.08) H 02/15/17 06:00 APTT 36.9 Seconds (25.1-36.5) H 02/15/17 06:00 - Constitutional Appears: No Acute Distress, Cachectic - Head Exam Head Exam: ATRAUMATIC, NORMAL INSPECTION, NORMOCEPHALIC - Eye Exam Eye Exam: EOMI, Normal appearance, PERRL. absent: Scleral icterus Pupil Exam: NORMAL ACCOMODATION - ENT Exam ENT Exam: Mucous Membranes Moist - Neck Exam Neck Exam: Normal Inspection - Respiratory Exam Respiratory Exam: Decreased Breath Sounds (bibasilar), Clear to Ausculation Bilateral, NORMAL BREATHING PATTERN - Cardiovascular Exam Cardiovascular Exam: REGULAR RHYTHM, +S1, +S2, Murmur - GI/Abdominal Exam GI & Abdominal Exam: Soft, Normal Bowel Sounds. absent: Guarding, Rigid, Tenderness - Extremities Exam Extremities Exam: Normal Capillary Refill, Normal Inspection. absent: Calf Tenderness, Pedal Edema - Neurological Exam Neurological Exam: Alert, Awake, Oriented x3 - Psychiatric Exam Psychiatric exam: Normal Affect, Normal Mood - Skin Skin Exam: Dry, Warm Assessment and Plan - Assessment and Plan (Free Text) Plan: Mr Calderón, 86 M, with pacemaker for A-fib, Hx mitral valve replacement, admitted for supratherapeutic coagulopathy and HCAP. He was recently hospitalized and rehab for L hip fracture and replacement. CXR showed patchy infilatrate at R lung base. Chest CT w/o contrast showed parenchymal scarring in R lung apex and Small bilatera pleural effusion. He was put of midodrine since last hospitalization. Septic work up reveals that he also has Enterococcus Fasecalis UTI and Enterococcus Fasecalis bacteremia in the setting of pacemaker. EJ (02/14) reveals vegetation of mitral valve with mitral regurgitation. Supratherapeutic coagulopathy, INR 9.93 s/p Vit K - resolved INR 3 - [ ] warfarin 2.5 QD - hold today; likely 2 tomorrow - daily Coags Subacute bacterial endocarditis, 1.3cm mitral vegetation SIRS 03/16 for leukocytosis Possibly due to Enterococcus Fasecalis bacteremia, HCAP, Enterococcus Fasecalis UTI Gram positive cocci bacterremia, in the setting of pacemaker R/O gall-bladder/GI related infection - Got acevedo-CT - s/p EJ - Ampicillin and Ceftriazone 2gm daily - will need at least 6 weeks of antibiotic - [ ] picc consult - Per cardio, not a surgical candidate for valve replacement; no plan for surgical intervention per cardio - repeat echo next week Conjunctivitis - tobradex Pneumonia, Possible healthcare associated - Procalc pending 0.53--> 0.22 - Acetylcystein 20% 4ml Q6, Xopenex 0.63 Q6, chest PT, PEP valve, flonase CHF, diastolic, r/o ischemic cause Elevated BNP likely due to PNA vs CHF - EKG - v-pace at 80 - BNP, CPK daily; trops x 3 - CBC, CMP, Mg, coags daily - Midodrine 5 TID. BP > 100 - Laxis 40 IV daily Cachetic, BMI 17 - Magnesium suppl, k-dur - dietary suppl Paraplegia - off-loading boots Renal cysts b/l x 4 - R: 9.7cm, 3.6cm, simple; L 11.2 cm, 4.6 cm, simple avascular Q-T prolong at 580 A-fib s/p pacemaker - Amiodarone decrease to 200 hs HLD - Zetia 10. Add lipitor 10 HS Nomocytic anemia Hb 12.2, MCV 92.7 - aysmptpmatic. Observe for now Hypothyroidism - Synthroid 125 QD. TSH wnl. Glaucoma - Latanoprost Constipation - Docusate 100 TID and miralax BID Spinal stenosis - tylenol for mod pain, percocet 2.5 1q6 PRN for severe FEN - HHD, hold fluid for CHF/no fever, glucerna bid pvx - protonix 40 BID, AE hose, SCD Consult Dr Rivera - Cardio Dr Correa - ID Dr Magnus Jauregui - ryr Dr Soares - IR Disposition planning - Possible [place] re[facility] S/D/R/w Dr. Scott Imaging: AB ultrasound (02/12): Pending CT A/P with: small b/l pleural effusion with compressive atelectais; moderate GB distention EKG (02/12): V-pace 85, QTc 580 Echocardiogram: LVEF normal. Grade 2 filling. normal wall motion. RVSP [address]: no bleed CXR: patchy infiltrate RL base Chest CT: b/l pleural effusion, parenchymal scrarring R lung apex Culture: Blood (02/10): Enterococcus Faecalis x 2 bottles (02/11): Enterococcus Fasecalis x 2 bottles (02/12): G pos cocci x 1 bottle (02/14): Pending Urine (02/10): Enterococcis Faecalis (02/12): negative
[2017-02-15] MEDS: Magnesium Oxide 400 mg Tab UD PO SCH ×2 (10:06→18:08)
[2017-02-15] MEDS: Potassium Chloride 20 mEq ER Tab PO SCH ×2 (10:09→18:02)
[2017-02-15] MEDS: POLYETHYLENE GLYCOL 3350 17 GM/Dose PACKET PO SCH ×3 (10:10→17:00)
[2017-02-15] MEDS: Fluticasone Nasal 50 mcg/Spray NS SCH (10:10)
[2017-02-15] MEDS: cefTRIAXone 2 GM IN NS 2 GM/100 ML BAG IVPB SCH ×2 (10:11→22:03)
[2017-02-15] MEDS: Tobramycin/Dexamethasone (Tobradex) Opth Sol (2.5 ml) OU SCH ×4 (10:12→22:05)
[2017-02-15] MEDS ORDERED: Lidocaine 2% Inj (20ml) ONE (13:28)
--- NOTE | 2017-02-15 16:54 | RAD ---
HISTORY: abdominal pain COMPARISON: No prior. FINDINGS: BOWEL: Extensive gas throughout the colon No obstruction. No free air. BONES: Thoraco lumbar spondylosis and facet hypertrophic arthrosis. Generalized osteopenia. Left hip hemiarthroplasty OTHER FINDINGS: None. IMPRESSION: No gross free air. No gross mechanical obstruction appreciated. Extensive gas throughout the colon
--- NOTE | 2017-02-15 16:58 | RAD ---
HISTORY: dyspnea COMPARISON: 02/10/2017 FINDINGS: LUNGS: The prior patchy infiltrate at the right lung base is less dense-less conspicuous. Overall interstitial markings appear slightly prominent in a patchy distribution which is probably otherwise unchanged. No consolidation PLEURA: No significant pleural effusion identified, no pneumothorax apparent. CARDIOVASCULAR: Mild cardiomegaly 2 lead pacemaker right subclavian PICC line tip in right atrium consider proximal retraction to caval atrial junction approximately 6 cm OSSEOUS STRUCTURES: Generalized osteopenia thoracic spondylosis. VISUALIZED UPPER ABDOMEN: Normal. OTHER FINDINGS: None. IMPRESSION: Prior faint patchy infiltrate right lung base less conspicuous less dense. Background scattered prominent interstitial lung markings -chronic interstitial lung disease suspect. No interval pulmonary pathology appreciated Interval right PICC line insertion. No pneumothorax. Consider retraction 6 cm as above
--- NOTE | 2017-02-15 17:14 | VASCULAR ---
PROCEDURE: Ultrasound and fluoroscopically placed right upper extremity PICC line. HISTORY: Sepsis. Possible endocarditis. Long-term IV antibiotics. Needs PICC line. PHYSICIAN(S): Brayden Soares MD. TECHNIQUE: The relative risks and indications of the procedure were explained to the patient and consent obtained. The patient was placed supine on the arteriogram table and the right arm prepped and draped in the usual sterile fashion. A tourniquet was applied to the right axilla. 1% Xylocaine was used to anesthetize the skin and soft tissues at the puncture site above the elbow. The right basilic vein was punctured under direct ultrasound guidance with a micropuncture set. A 0.018 guidewire was advanced centrally and used to measure the length to the SVC/RA junction. A 5 Hebrew single-lumen PICC line 42 cm long was advanced to the SVC/RA junction. The catheter was flushed and secured. The patient tolerated the procedure well. IMPRESSION: 1. Ultrasound and fluoroscopically placed right upper extremity PICC line. A 5 Hebrew single-lumen PICC line 42 cm long was advanced to the SVC/RA junction.
[2017-02-15 17:22] LABS: TROPONIN I 0.03 ng/mL
--- NOTE | 2017-02-15 17:57 | CARD ---
APPROVED REPORT EKG Measurement Heart [id number] <Conclusion> Electronic ventricular pacemaker
--- NOTE | 2017-02-15 18:51 | PN ---
DATE: 02/15/2017 SUBJECTIVE: The patient is in bed, in no acute distress, nontoxic. PHYSICAL EXAMINATION: VITAL SIGNS: Temperature is 98, blood pressure is 115/70, respiratory rate of 18. HEENT: Unremarkable. NECK: Supple. LUNGS: Decreased breath sounds. HEART: Normal S1 and S2. ABDOMEN: Soft. LABORATORY EXAMINATION: Reveals a white count of 13,300, hemoglobin of 10, platelets of 318. Chemistry reveals a BUN of 25, creatinine is 1.1. BNP is noted and urinalysis is noted. Laboratory examination is also noted. The blood cultures reveals repeat cultures are pending and review of orders reveals the patient on ampicillin and ceftriaxone. Dr. Brayden Rivera's note from today is reviewed. ASSESSMENT AND PLAN: This is an 86-year-old male with sepsis and Enterococcus faecalis, mitral valve endocarditis, large size vegetation of 1.3 cm and the patient with a pacemaker. Currently, on ampicillin and ceftriaxone. Awaiting for the repeat blood culture results. The patient is a poor surgical risk, chronically ill, cachectic, frail, elderly man. Jorgito Correa MD
[2017-02-15] MEDS: Latanoprost 2.5 ml Opht Soln OU SCH (22:08)
[2017-02-16] MEDS: AMPicillin 2 GM in Sodium Chloride 0.9% 100 ML IVPB SCH ×5 (00:56→23:16)
[2017-02-16] MEDS: Oxycodone/Acetaminophen 2.5/325 mg Tab PO PRN ×3 (01:00→21:43)
[2017-02-16] MEDS: Acetylcysteine 20% Inhal Soln (4ml) IH SCH ×4 (02:48→19:32)
[2017-02-16] MEDS: Levalbuterol 0.63 MG/3 ML Inhal Soln UD IH SCH ×4 (02:48→19:32)
[2017-02-16] MEDS: Pantoprazole 40 mg EC Tab PO SCH ×2 (06:23→17:43)
[2017-02-16 07:40] LABS: BASO # 0.01 K/mm3 (0.0-2.0); BASO % 0.1 % (0.0-3.0); EOS % 0.2 % (1.5-5.0); GRAN # 11.43 (1.4-6.5); GRAN % 79.8 % (50.0-68.0); LYMPH # 1.8 (1.2-3.4); LYMPH % 12.8 % (22.0-35.0); MEAN CELL VOLUME 91.2 fl (80.0-105.0); MEAN CORPUSCULAR HEMOGLOBIN 29.2 pg (25.0-35.0); MEAN CORPUSCULAR HGB CONC 32.1 g/dl (31.0-37.0); MEAN PLATELET VOLUME 8.8 fl (7.0-11.0); MONO % 7.1 % (1.0-6.0); RED CELL DISTRIBUTION WIDTH 14.8 % (11.5-14.5); WHITE BLOOD COUNT 14.3 10^3/ul (4.5-11.0)
[2017-02-16 07:58] LABS: INR 3.46 (0.93-1.08); PARTIAL THROMBOPLASTIN TIME 39.7 Seconds (25.1-36.5)
[2017-02-16] MEDS: Levothyroxine 125 MCG TAB PO SCH (08:47)
[2017-02-16 08:54] LABS: ALB/GLOB RATIO 0.9 (1.1-1.8); ALKALINE PHOSPHATASE 77 U/L (38-126); ALT/SGPT 35 U/L (7-56); AST/SGOT 25 U/L (17-59); BILIRUBIN,DIRECT 0.4 mg/dL (0.0-0.4); BILIRUBIN,TOTAL 0.4 mg/dL (0.2-1.3); BLOOD UREA NITROGEN 25 mg/dL (7-21); CALCIUM 8.5 mg/dL (8.4-10.5); CARBON DIOXIDE 29 mmol/L (21-33); CHLORIDE 97 mmol/L (98-107); GFR AFRICAN-AMERICAN > 60; GLUCOSE,RANDOM 91 mg/dL (70-110); MAGNESIUM 2.1 mg/dL (1.7-2.2); POTASSIUM 3.7 mmol/L (3.6-5.0); SODIUM 134 mmol/L (132-148); TOTAL PROTEIN 5.9 g/dL (5.8-8.3)
--- NOTE | 2017-02-16 10:00 | CP.PCM.PN ---
Subjective - Date & Time of Evaluation Date of Evaluation: 02/16/17 Time of Evaluation: 09:59 - Subjective Subjective: PGY-[address] Scott No acute complaint. Pt did not have any bowel movement yet. No more abdominal pain Objective - Vital Signs/Intake and Output Vital Signs (last 24 hours): Temp Pulse Resp BP Pulse Ox 97.2 F L 79 18 109/58 L 97 02/16/17 07:58 02/16/17 07:58 02/16/17 07:58 02/16/17 07:58 02/16/17 07:58 Intake and Output: 02/16/17 02/16/17 06:59 18:59 Intake Total 0 600 Balance 0 600 - Medications Medications: Current Medications Acetaminophen (Tylenol 325mg Tab) 650 mg PO Q6H PRN PRN Reason: Pain, moderate (4-7) Last Admin: 02/15/17 18:08 Dose: 650 mg Acetylcysteine (Acetylcysteine 20%) 4 ml IH [id number] [facility] Last Admin: 02/16/17 08:22 Dose: Not Given Amiodarone HCl (Cordarone) 200 mg PO HS [facility] Last Admin: 02/15/17 22:01 Dose: 200 mg Atorvastatin Calcium (Lipitor) 10 mg PO HS [facility] Last Admin: 02/15/17 22:02 Dose: 10 mg Benzocaine/Menthol (Cepacol Sore Throat) 1 cher MT Q2H PRN PRN Reason: Sore Throat Docusate Sodium (Colace) 100 mg PO TID [facility] Last Admin: 02/15/17 18:02 Dose: Not Given Ezetimibe (Zetia) 10 mg PO HS [facility] Last Admin: 02/15/17 22:02 Dose: 10 mg Fluticasone Propionate (Flonase) 1 actuation NS DAILY [facility] Last Admin: 02/15/17 10:10 Dose: 2 spr Furosemide (Lasix) 40 mg IVP DAILY [facility] Last Admin: 02/15/17 10:10 Dose: 40 mg Ampicillin 2 gm/ Sodium (Chloride) 100 mls @ 200 mls/hr IVPB Q6 [facility] PRN Reason: Protocol Stop: 03/02/17 18:01 Last Admin: 02/16/17 06:22 Dose: 200 mls/hr Ceftriaxone Sodium (Rocephin 2 Gm Ivpb) 2 gm in 100 mls @ 100 mls/hr IVPB Q12 [facility] PRN Reason: Protocol Stop: 02/25/17 22:01 Last Admin: 02/15/17 22:03 Dose: 100 mls/hr Latanoprost (Xalatan Opht) 0 ml OU HS [facility] Last Admin: 02/15/17 22:08 Dose: 2.5 ml Levalbuterol HCl (Xopenex) 0.63 mg IH [id number] [facility] Last Admin: 02/16/17 08:22 Dose: 0.63 mg Levothyroxine Sodium (Synthroid) 125 mcg PO ACB [facility] Last Admin: 02/16/17 08:47 Dose: 125 mcg Magnesium Oxide (Mag-Ox) 400 mg PO BID [facility] Last Admin: 02/15/17 18:08 Dose: Not Given Midodrine (Proamatine) 10 mg PO TID [facility] Last Admin: 02/16/17 08:46 Dose: 10 mg Oxycodone/Acetaminophen (Percocet 2.5/325 Mg Tab) 1 tab PO Q6H PRN PRN Reason: Pain, severe (8-10) Last Admin: 02/16/17 01:00 Dose: 1 tab Pantoprazole Sodium (Protonix Ec Tab) 40 mg PO 0600,1600 [facility] Last Admin: 02/16/17 06:23 Dose: 40 mg Polyethylene Glycol (Miralax) 17 gm PO BID [facility] Last Admin: 02/15/17 17:00 Dose: Not Given Potassium Chloride (K-Dur 20 Meq Er Tab) 20 meq PO BID [facility] Last Admin: 02/15/17 18:02 Dose: Not Given Tobramycin/Dexamethasone (Tobradex Opht Susp) 0 ml OU QID [facility] Last Admin: 02/15/17 22:05 Dose: 1 drop Warfarin Sodium (Coumadin) 2 mg PO 1800 [facility] PRN Reason: Protocol - Labs Labs: 02/16/17 07:30 02/16/17 07:30 PT 39.0 SECONDS (9.4-12.5) H 02/16/17 07:30 INR 3.46 (0.93-1.08) H 02/16/17 07:30 APTT 39.7 Seconds (25.1-36.5) H 02/16/17 07:30 - Constitutional Appears: No Acute Distress - Head Exam Head Exam: ATRAUMATIC, NORMAL INSPECTION, NORMOCEPHALIC - Eye Exam Eye Exam: EOMI, Normal appearance, PERRL Pupil Exam: NORMAL ACCOMODATION, PERRL - ENT Exam ENT Exam: Mucous Membranes Moist - Neck Exam Additional comments: supple - Respiratory Exam Respiratory Exam: Clear to Ausculation Bilateral, NORMAL BREATHING PATTERN - Cardiovascular Exam Cardiovascular Exam: REGULAR RHYTHM, +S1, +S2. absent: Murmur - GI/Abdominal Exam GI & Abdominal Exam: Soft, Normal Bowel Sounds. absent: Guarding, Rigid, Tenderness - Extremities Exam Extremities Exam: absent: Calf Tenderness Additional comments: R PICC intact no bleed no erythema - Neurological Exam Neurological Exam: Alert, Awake, Oriented x3 - Psychiatric Exam Psychiatric exam: Normal Affect, Normal Mood - Skin Skin Exam: Dry, Warm Assessment and Plan - Assessment and Plan (Free Text) Plan: Mr Calderón, 86 M, with pacemaker for A-fib, Hx mitral valve replacement on warfarin, admitted for supratherapeutic coagulopathy and HCAP. He was recently hospitalized and rehab for L hip fracture and replacement. On admission, CXR showed patchy infilatrate at R lung base. Chest CT w/o contrast showed parenchymal scarring in R lung apex and Small bilatera pleural effusion. He has Enterococcus Fasecalis UTI and Enterococcus Fasecalis bacteremia in the setting of pacemaker. EJ (02/14) reveals vegetation of mitral valve with mitral regurgitation. Now he has subacute endocarditis. He has not have BM x 3 days. Pt refused PT. Supratherapeutic coagulopathy, INR 9.93 s/p Vit K - resolved INR 3.46 - Hold Warfarin today - likely start warfarin at 2 tomorrow - daily Coags Constipation. 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 SIRS 1/ for leukocytosis Possibly due to Enterococcus Fasecalis bacteremia, HCAP, Enterococcus Fasecalis UTI Gram positive cocci bacterremia, in the setting of pacemaker R/O gall-bladder/GI related infection - Got acevedo-CT - s/p EJ - Ampicillin and Ceftriazone 2gm daily - will need at least 6 weeks of antibiotic - Pt refuses surgery and prefer medical management - Per cardio, not a surgical candidate for valve replacement; no plan for surgical intervention per cardio - repeat echo next week Conjunctivitis - tobradex Pneumonia, Possible healthcare associated - Procalc pending 0.53--> 0.22 - Acetylcystein 20% 4ml Q6, Xopenex 0.63 Q6, chest PT, PEP valve, flonase CHF, diastolic Elevated BNP likely due to PNA vs CHF - EKG - v-pace at 80 - Laxis 40 IV daily - Midodrine 5 TID Cachetic, BMI 17 Stage 1 R ankle ulcer - Magnesium suppl, k-dur - dietary suppl - Podiatry consult - off-loading boots Renal cysts b/l x 4 - R: 9.7cm, 3.6cm, simple; L 11.2 cm, 4.6 cm, simple avascular Q-T prolong at 580 A-fib s/p pacemaker - Amiodarone decrease to 200 hs HLD - Zetia 10. Add lipitor 10 HS Nomocytic anemia Hb 12.2, MCV 92.7 - aysmptpmatic. Observe for now Hypothyroidism - Synthroid 125 QD. TSH wnl. Glaucoma - Latanoprost Spinal stenosis - tylenol for mod pain, percocet 2.5 1q6 PRN for severe FEN - HHD, hold fluid for CHF/no fever, glucerna bid pvx - protonix 40 BID, AE hose, SCD Consult Dr Rivera - Cardio Dr Correa - ID Dr Magnus Jauregui - ryr Dr Soares - IR Dr Potter - Podiatry Disposition planning - [facility] - 2 bottles of blood culture negative x 4-5 days S/D/R/w Dr. Scott Imaging: AB ultrasound (02/12): b/l renal cyst in pancrease tail CT A/P (02/11): small b/l pleural effusion with compressive atelectais; moderate GB distention EKG (02/12): V-pace 85, QTc 580 Echocardiogram: LVEF normal. Grade 2 filling. normal wall motion. RVSP [address]: no bleed CXR (02/10): patchy infiltrate RL base Chest CT (02/10): b/l pleural effusion, parenchymal scrarring R lung apex Abdominal xr (02/16): No gross free air. No gross mechanical obstruction appreciated. Extensive gas througout colon. CXR (02/15): Prior patchy infiltrate R lung base less conspicous, less dense. Background scattered prominent interstitial lung marking suggestive of CHronic interstital lung diseases Culture: Blood (02/10): Enterococcus Faecalis x 2 bottles (02/11): Enterococcus Fasecalis x 2 bottles (02/12): G pos cocci x 1 bottle (02/14): negative x 1 day Urine (02/10): Enterococcis Faecalis (02/12): negative
[2017-02-16] MEDS: Potassium Chloride 20 mEq ER Tab PO SCH ×2 (10:56→17:40)
[2017-02-16] MEDS: Fluticasone Nasal 50 mcg/Spray NS SCH (10:57)
[2017-02-16] MEDS: Magnesium Oxide 400 mg Tab UD PO SCH ×2 (10:57→17:42)
[2017-02-16] MEDS: Tobramycin/Dexamethasone (Tobradex) Opth Sol (2.5 ml) OU SCH ×4 (10:58→22:25)
[2017-02-16] MEDS: POLYETHYLENE GLYCOL 3350 17 GM/Dose PACKET PO SCH ×2 (10:58→17:42)
[2017-02-16] MEDS: cefTRIAXone 2 GM IN NS 2 GM/100 ML BAG IVPB SCH ×2 (11:06→21:31)
--- NOTE | 2017-02-16 14:10 | CP.PCM.CON ---
History of Present Illness - History of Present Illness History of Present Illness: Podiatry Consult Note - Dr. Potter 86 year old male patient seen and evaluated for redness to right heel. Patient OOB in chair, hemodynamically stable and NAD. Patient reports mild discomfort to back of right heel; however is complaining more about his back pain. Denies N /V/F/D/C/SOB. Review of Systems - Review of Systems All systems: reviewed and no additional remarkable complaints except (as per HPI ) Past Patient History - Infectious Disease Hx of Infectious Diseases: None - Tetanus Immunizations Tetanus Immunization: Unknown - Past Social History Smoking Status: Never Smoked - CARDIAC Hx Cardiac Disorders: Yes (Afib; PAcemaker) Hx Hypertension: Yes - PULMONARY Hx Respiratory Disorders: No - NEUROLOGICAL Hx Neurological Disorder: Yes Hx Dizziness: Yes Hx Transient Ischemic Attacks (TIA): Yes Other/Comment: lumbAr stenosis,SYNCOPE - HEENT Hx HEENT Problems: Yes Hx Cataracts: Yes Hx Deafness: Yes (rt ear) Hx Glaucoma: Yes (surgery/RIGHT) - RENAL Hx Chronic Kidney Disease: No - ENDOCRINE/METABOLIC Hx Hypothyroidism: Yes - HEMATOLOGICAL/ONCOLOGICAL Hx Blood Transfusions: No Hx Blood Transfusion Reaction: No - INTEGUMENTARY Hx Dermatological Problems: Yes Hx Psoriasis: Yes - MUSCULOSKELETAL/RHEUMATOLOGICAL Hx Falls: Yes - GASTROINTESTINAL Hx Gastrointestinal Disorders: Yes Hx Diverticulitis: Yes - GENITOURINARY/GYNECOLOGICAL Hx Genitourinary Disorders: Yes - PSYCHIATRIC Hx Depression: No Hx Emotional Abuse: No Hx Physical Abuse: No Hx Substance Use: No - SURGICAL HISTORY Hx Surgeries: Yes - ANESTHESIA Hx Anesthesia Reactions: No Hx Malignant Hyperthermia: No Meds Allergies/Adverse Reactions: Allergies Allergy/AdvReac Type Severity Reaction Status Date / Time epinephrine Allergy ANAPHYLAXIS Verified 08/24/16 23:05 - Medications Medications: Current Medications Acetaminophen (Tylenol 325mg Tab) 650 mg PO Q6H PRN PRN Reason: Pain, moderate (4-7) Last Admin: 02/15/17 18:08 Dose: 650 mg Acetylcysteine (Acetylcysteine 20%) 4 ml IH [id number] [facility] Last Admin: 02/16/17 14:01 Dose: 4 ml Amiodarone HCl (Cordarone) 200 mg PO HS [facility] Last Admin: 02/15/17 22:01 Dose: 200 mg Atorvastatin Calcium (Lipitor) 10 mg PO HS [facility] Last Admin: 02/15/17 22:02 Dose: 10 mg Benzocaine/Menthol (Cepacol Sore Throat) 1 cher MT Q2H PRN PRN Reason: Sore Throat Docusate Sodium (Colace) 100 mg PO TID [facility] Last Admin: 02/16/17 13:22 Dose: 100 mg Ezetimibe (Zetia) 10 mg PO HS [facility] Last Admin: 02/15/17 22:02 Dose: 10 mg Fluticasone Propionate (Flonase) 1 actuation NS DAILY [facility] Last Admin: 02/16/17 10:57 Dose: 1 spr Furosemide (Lasix) 40 mg IVP DAILY [facility] Last Admin: 02/16/17 10:55 Dose: 40 mg Ampicillin 2 gm/ Sodium (Chloride) 100 mls @ 200 mls/hr IVPB Q6 [facility] PRN Reason: Protocol Stop: 03/02/17 18:01 Last Admin: 02/16/17 13:40 Dose: 200 mls/hr Ceftriaxone Sodium (Rocephin 2 Gm Ivpb) 2 gm in 100 mls @ 100 mls/hr IVPB Q12 [facility] PRN Reason: Protocol Stop: 02/25/17 22:01 Last Admin: 02/16/17 11:06 Dose: 100 mls/hr Latanoprost (Xalatan Opht) 0 ml OU HS [facility] Last Admin: 02/15/17 22:08 Dose: 2.5 ml Levalbuterol HCl (Xopenex) 0.63 mg IH [id number] [facility] Last Admin: 02/16/17 14:01 Dose: 0.63 mg Levothyroxine Sodium (Synthroid) 125 mcg PO ACB [facility] Last Admin: 02/16/17 08:47 Dose: 125 mcg Magnesium Oxide (Mag-Ox) 400 mg PO BID [facility] Last Admin: 02/16/17 10:57 Dose: 400 mg Midodrine (Proamatine) 10 mg PO TID [facility] Last Admin: 02/16/17 13:22 Dose: 10 mg Oxycodone/Acetaminophen (Percocet 2.5/325 Mg Tab) 1 tab PO Q6H PRN PRN Reason: Pain, severe (8-10) Last Admin: 02/16/17 13:48 Dose: 1 tab Pantoprazole Sodium (Protonix Ec Tab) 40 mg PO 0600,1600 [facility] Last Admin: 02/16/17 06:23 Dose: 40 mg Polyethylene Glycol (Miralax) 17 gm PO BID [facility] Last Admin: 02/16/17 10:58 Dose: 17 gm Potassium Chloride (K-Dur 20 Meq Er Tab) 20 meq PO BID [facility] Last Admin: 02/16/17 10:56 Dose: 20 meq Tobramycin/Dexamethasone (Tobradex Opht Susp) 0 ml OU QID [facility] Last Admin: 02/16/17 13:23 Dose: 1 drop Warfarin Sodium (Coumadin) 2 mg PO 1800 [facility] PRN Reason: Protocol Physical Exam - Constitutional Appears: Well, Non-toxic, No Acute Distress, Unkempt - Extremities Exam Additional comments: VASC: DP and PT pulses palpable. CFT <3 seconds to digits x5 b/l. Temperature gradient cool to cool. No edema noted. NEURO: Gross sensation intact bilaterally. DERM: Erythema noted to posterolateral Davian's right foot. No open lesions noted. Nonblanchable preulcerative lesion noted to anterior right ankle joint. ORTHO: No pain on palpation bilateral lower extremity - Neurological Exam Neurological exam: Alert, Oriented x3 - Psychiatric Exam Psychiatric exam: Normal Affect, Normal Mood Results - Vital Signs Recent Vital Signs: Last Vital Signs Temp 97.2 F L 02/16/17 07:58 Pulse 79 02/16/17 07:58 Resp 18 02/16/17 07:58 BP 109/58 L 02/16/17 10:55 Pulse Ox 97 02/16/17 07:58 - Labs Result Diagrams: 02/16/17 07:30 02/16/17 07:30 Labs: Laboratory Results - last 24 hr 02/15/17 02/16/17 02/16/17 16:58 07:30 07:30 WBC 14.3 H RBC 3.73 Hgb 10.9 L Hct 34.0 L MCV 91.2 MCH 29.2 MCHC 32.1 RDW 14.8 H Plt Count 308 MPV 8.8 Gran % 79.8 H Lymph % (Auto) 12.8 L [place] % (Auto) 7.1 H Eos % (Auto) 0.2 L Baso % (Auto) 0.1 Gran # 11.43 H Lymph # 1.8 [place] # 1.0 H Eos # 0.0 Baso # 0.01 PT 39.0 H INR 3.46 H APTT 39.7 H Sodium Potassium Chloride Carbon Dioxide Anion Gap BUN Creatinine Est GFR ( Amer) Est GFR (Non-Af Amer) Random Glucose Calcium Magnesium Total Bilirubin Direct Bilirubin AST ALT Alkaline Phosphatase Lactate Dehydrogenase 384 Total Creatine Kinase < 20 L Troponin I 0.03 NT-Pro-B Natriuret Pep Total Protein Albumin Globulin Albumin/Globulin Ratio 02/16/17 07:30 WBC RBC Hgb Hct MCV MCH MCHC RDW Plt Count MPV Gran % Lymph % (Auto) [place] % (Auto) Eos % (Auto) Baso % (Auto) Gran # Lymph # [place] # Eos # Baso # PT INR APTT Sodium 134 Potassium 3.7 Chloride 97 L Carbon Dioxide 29 Anion Gap 12 BUN 25 H Creatinine 1.2 Est GFR ( Amer) > 60 Est GFR (Non-Af Amer) 58 Random Glucose 91 Calcium 8.5 Magnesium 2.1 Total Bilirubin 0.4 Direct Bilirubin 0.4 AST 25 ALT 35 Alkaline Phosphatase 77 Lactate Dehydrogenase Total Creatine Kinase Troponin I NT-Pro-B Natriuret Pep 1630 H Total Protein 5.9 Albumin 2.8 L Globulin 3.2 Albumin/Globulin Ratio 0.9 L Assessment & Plan - Assessment and Plan (Free Text) Assessment: 86 year old male with stage 1 pressure ulcer to right anterior ankle joint Plan: Patient seen and evaluated with attending, Dr. Potter afebrile, leukocytosis 14.3 No decubitus ulcer noted to posterior heel b/l Optifoam applied to bilateral heels and anterior right ankle joint wound Continue heel offloading boots while in bed Stable per podiatry standpoint Thank you for the consult, please reconsult podiatry as needed Will sign off at this time
--- NOTE | 2017-02-16 20:59 | PN ---
DATE: 02/16/2017 SUBJECTIVE: The patient is seen again lying in the bed in room 363, bed 2. The patient's overnight events were noted. The patient was seen by social scientist. The patient's case has been refused, referred for subacute rehab placement. The patient will require long-term antibiotic treatment. The patient underwent PICC line placement by Dr. Brayden Soares of the right upper extremity. According to the physical therapist notes, the patient has categorically refused physical therapy and ambulation therapy in the last 2-3 days. I have advised the patient to comply with the physical therapy and be out of bed to chair. I have also discussed the transesophageal results with the patient and I have explained to the patient all the treatment options, which are available, including the possibilities of mitral valve replacement and open heart surgery, which the patient's categorically declined after understanding the procedures and all the risk consequences. The patient is interested in continuing and prefers to continue with long-term IV antibiotic treatment. PHYSICAL EXAMINATION VITAL SIGNS: T-max 97.5, heart rate 79, 80, 82 and 87, blood pressure is 102/64, 109/58, 93/61, 115/73, respiration 19, O2 sat 97-100% on 2 liters nasal cannula. HEAD: Examination normocephalic, atraumatic. HEENT: Examination shows pinkish conjunctivae. Anicteric sclerae. No oropharyngeal lesion. No neck rigidity. CHEST: Examination kyphosis. Positive left upper chest pacemaker. LUNGS: Examination shows occasional rhonchi. CARDIOVASCULAR: S1 and S2, regular rhythm. ABDOMEN: Soft. Positive bowel sounds. GENITALIA: Male. RECTAL: Examination is deferred. EXTREMITY: Shows no pitting, no calf tenderness, no Homans' sign. NEUROLOGIC: The patient is alert, awake, oriented x3. Cranial nerves II-XII grossly intact. Motor strength is 5/5. MUSCULOSKELETAL: Examination shows a body mass index of 17.2. DIAGNOSTICS: 02/16/2017, WBC count 14.3, hemoglobin/hematocrit 11 and 34, platelet 308. Granulocytes 80% segs. ESR is 18. PT is 39.0, INR 3.46. Coumadin on hold. Sodium 134, potassium 3.7, chloride 97, CO2 29, anion gap 12, BUN 25, creatinine 1.2, GFR greater than 60, glucose 91, calcium 8.5, magnesium 2.1. LFTs are normal. CPK, troponin was done without my information yesterday. I was not informed of the patient's need for above blood work. The patient BNP is down to 1630.. The patient's blood cultures are persistently positive for Enterococcus faecalis from 02/10/2017, 02/11/2017 and 02/12/2017. The patient's urine culture repeat is negative from 02/12/2017, but positive for Enterococcus faecalis in 02/10/2017. IMPRESSION AND PLAN: 1. Questionable persistent, questionable refractory enterococcus faecalis bacteremia, sepsis with Enterococcus faecalis urinary tract infection. 2. Mitral valve endocarditis. 3. Status post right upper extremity PICC line placement. 4. Constipation. 5. Left ventricular hypertrophy with ejection fraction of 55%. 6. Moderately dilated left atrium and mildly dilated right atrium. 7. Moderate aortic regurgitation. 8. Thickened mitral valve leaflet with posterior mitral valve leaflet echogenic mobile structure consistent with vegetation and endocarditis and a small vegetation attached to the anterior leaflet near the root of the direction of the mitral regurgitant jet. 9. Severe mitral regurgitation with eccentrically directed mitral regurgitation jet. 10. Mild tricuspid regurgitation with right ventricular systolic pressure of 48 mmHg. 11. Questionable mild pulmonary arterial hypertension with elevated right ventricular systolic pressure of 48 mmHg. 12. Hypotension. 13. Noncompliance. 14. Deconditioning. 15. Persistent leukocytosis with granulocytosis and normocytic anemia. 16. Elevated erythrocyte sedimentation rate. 17. Coumadin dependent atrial fibrillation. 18. Iatrogenic coagulopathy secondary to Coumadin. 19. Prerenal kidney injury. 20. Hypokalemia. 21. Questionable congestive heart failure with elevated BNP. 22. Hypoalbuminemia. 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 24. Enterococcus faecalis urinary tract infection with microscopic hematuria and bacteriuria. 25. 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 26. Status post left hip by hemiarthroplasties. 27. Generalized osteopenia. 28. Cardiomegaly. 29. Osteopenia. 30. Distended gallbladder without cholelithiasis. 31. Bilateral renal cyst. 32. Permanent pacemaker implant. 33. Status post right upper extremity PICC line placement. 34. Stage I right anterior ankle joint pressure ulcer. 35. Enterococcus faecalis bacteremia and sepsis with . 36. Poor surgical candidate. PLAN: At this time, the patient has been ordered serial labs. The patient seen by the social scientist for subacute rehab placement for long-term IV antibiotic treatment. CURRENT CONSULTATION: 1. Infectious Disease. 2. Cardiology. 3. Podiatry. MEDICATIONS: 1. The patient is on Mucomyst and Xopenex nebulizer treatment every 6 hours. 2. Ampicillin 2 g IV q. 6. 3. Cepacol Lozenges p.r.n. 4. Colace 100 mg three times a day. 5. Amiodarone 200 mg daily. 6. The patient's Coumadin is on hold till . It will be decreased to 2 mg daily. If the INR is acceptable, the patient is given a fleet enema x1 for constipation. 7. Flonase one puff daily. 8. The patient is on K-Dur 20 twice a day. 9. Lasix 40 IV daily. 10. Lipitor 10 mg at bedtime. 11. Magnesium oxide 400 twice a day. 12. MiraLax 17 g twice a day. 13. Percocet 2.5/325, will be changed to q. 8 hours p.r.n. as the patient is not very active. The patient has been advised to be more out of bed to chair and cooperate with the physical therapy for ambulation therapy, gait training. Physical Therapy was also advised to provide walker for the patient, according to his request. 14. The patient is on ProAmatine 10 mg three times a day. 15. Protonix 40 mg daily. 16. Rocephin 2 g IV q. 12. 17. Synthroid 125 mcg daily. 18. TobraDex eye appointment. 19. Tylenol p.r.n. 20. Xalatan eye drops. 21 Zetia 10 mg daily. Chest PT, heart-healthy diet, out of bed, SCDs, PRIYANKA stockings, occupational therapy, physical therapy all ordered. Dictated and electronically signed, not read. Signing off, Ash Scott MD
[2017-02-16] MEDS: Latanoprost 2.5 ml Opht Soln OU SCH (22:27)
--- NOTE | 2017-02-16 23:11 | PN ---
DATE: 02/16/2017 SUBJECTIVE: The patient is in bed, no acute distress, nontoxic. PHYSICAL EXAMINATION: VITAL SIGNS: Temperature is 97, blood pressure is 102/60 and respiratory rate of 16. HEENT: Unremarkable. NECK: Supple. LUNGS: Decreased breath sounds. HEART: Normal S1 and S2. ABDOMEN: Soft and nontender. LABORATORY EXAMINATION: Reveals white count 14,300, hemoglobin of 10 and platelets of 308. Chemistries reveal BUN of 25 and creatinine of 1.2. BNP of 1630. MEDICATIONS: Review of medications and orders confirms the patient to be on ceftriaxone 2 g q.12 hours and ampicillin 2 g IV q.6 hours. ASSESSMENT AND PLAN: This is an 86-year-old male who was admitted with sepsis, Enterococcus faecalis, mitral valve endocarditis and vegetation is specific in size, vegetation of 1.3 cm. The patient does have a pacemaker, although pacemaker is not infected, does not appear to be involved on transesophageal echocardiogram. Currently, on ampicillin and ceftriaxone. Case was discussed with Dr. Brayden Rivera, ground school instructor on the case regarding surgical intervention; due to large-sized vegetation, incidence of an embolic disease is high. Repeat cultures on 02/14/2017 no growth at 48 hours. We will continue to monitor closely in this patient with high risk for embolic disease with Enterococcus faecalis, mitral valve endocarditis. The patient is very frail, cachectic with a body mass index of 17 and extremely poor risk for bowel replacement surgery. There is a new data regarding mitral valve noninvasive procedure. We will discuss further with ground school instructor. Jorgito Correa MD
[2017-02-17] MEDS: Acetylcysteine 20% Inhal Soln (4ml) IH SCH ×4 (01:14→19:52)
[2017-02-17] MEDS: Levalbuterol 0.63 MG/3 ML Inhal Soln UD IH SCH ×4 (01:14→19:52)
[2017-02-17] MEDS: Pantoprazole 40 mg EC Tab PO SCH ×2 (06:34→18:00)
[2017-02-17] MEDS: AMPicillin 2 GM in Sodium Chloride 0.9% 100 ML IVPB SCH ×4 (06:34→23:49)
[2017-02-17 06:43] LABS: BASO # 0.01 K/mm3 (0.0-2.0); BASO % 0.1 % (0.0-3.0); EOS % 0.2 % (1.5-5.0); GRAN # 11.86 (1.4-6.5); GRAN % 79.9 % (50.0-68.0); HEMATOCRIT 33.3 % (42.0-52.0); LYMPH % 13.3 % (22.0-35.0); MEAN CELL VOLUME 91.7 fl (80.0-105.0); MEAN CORPUSCULAR HEMOGLOBIN 29.5 pg (25.0-35.0); MEAN CORPUSCULAR HGB CONC 32.1 g/dl (31.0-37.0); MEAN PLATELET VOLUME 9.2 fl (7.0-11.0); MONO % 6.5 % (1.0-6.0); RED CELL DISTRIBUTION WIDTH 14.8 % (11.5-14.5); WHITE BLOOD COUNT 14.9 10^3/ul (4.5-11.0)
[2017-02-17 06:48] LABS: PARTIAL THROMBOPLASTIN TIME 41.8 Seconds (25.1-36.5)
[2017-02-17 06:50] LABS: INR 3.63 (0.93-1.08)
[2017-02-17 07:04] LABS: ALB/GLOB RATIO 0.9 (1.1-1.8); ALKALINE PHOSPHATASE 72 U/L (38-126); ALT/SGPT 30 U/L (7-56); AST/SGOT 30 U/L (17-59); BILIRUBIN,DIRECT 0.2 mg/dL (0.0-0.4); BILIRUBIN,TOTAL 0.2 mg/dL (0.2-1.3); BLOOD UREA NITROGEN 24 mg/dL (7-21); CALCIUM 8.3 mg/dL (8.4-10.5); CARBON DIOXIDE 29 mmol/L (21-33); CHLORIDE 98 mmol/L (98-107); GFR AFRICAN-AMERICAN > 60; GLUCOSE,RANDOM 90 mg/dL (70-110); MAGNESIUM 2.1 mg/dL (1.7-2.2); SODIUM 135 mmol/L (132-148); TOTAL PROTEIN 5.6 g/dL (5.8-8.3)
[2017-02-17] MEDS: Fluticasone Nasal 50 mcg/Spray NS SCH (09:42)
[2017-02-17] MEDS: Magnesium Oxide 400 mg Tab UD PO SCH ×2 (09:42→17:57)
[2017-02-17] MEDS: Potassium Chloride 20 mEq ER Tab PO SCH (09:43)
[2017-02-17] MEDS: POLYETHYLENE GLYCOL 3350 17 GM/Dose PACKET PO SCH ×2 (09:47→17:57)
[2017-02-17] MEDS: Levothyroxine 125 MCG TAB PO SCH (09:50)
[2017-02-17] MEDS: Tobramycin/Dexamethasone (Tobradex) Opth Sol (2.5 ml) OU SCH ×4 (10:35→21:55)
[2017-02-17] MEDS: cefTRIAXone 2 GM IN NS 2 GM/100 ML BAG IVPB SCH ×2 (10:37→21:56)
--- NOTE | 2017-02-17 11:48 | PN ---
DATE: 02/17/2017 CARDIOLOGY FOLLOWUP SUBJECTIVE: The patient is without shortness of breath. PHYSICAL EXAMINATION: VITAL SIGNS: Blood pressure 96/64, heart rate in the 80s. NECK: Negative JVD. LUNGS: Without rales. HEART: S1, S2. EXTREMITIES: Without edema. LABORATORY DATA: Hemoglobin is 10.7. Chemistries, BUN and creatinine unremarkable. His INR is up to 3.63, currently off Coumadin IMPRESSION: 1. Subacute bacterial endocarditis. 2. Resolution of congestive heart failure. 3. Mitral regurgitation. 4. History of pacemaker placement. PLAN: Given these findings, we will need to be very careful for his anticoagulation given his concomitant antibiotic as well as amiodarone use. We will remeasure his INR in the morning to make sure that it is stable before discharge. Brayden Rivera MD
--- NOTE | 2017-02-17 15:00 | PN ---
DATE: 02/17/2017 SUBJECTIVE: The patient is seen in room 363, bed two. The patient is seen again lying in the bed. The patient is complaining about his low blood pressure. The patient's overnight nurse's notes were reviewed. The patient's was seen with the physical therapist and the patient's nurse. The patient clinical condition, diagnosis, treatment plan, all test results were reinforced and informed to the patient again. The patient has categorically declined thoracic surgery and valve replacement surgery. The patient clearly states that he wishes to get very long-term IV antibiotic treatment. The patient is seen lying in the bed in room 363, bed two. The patient is alert, awake, responsive. PHYSICAL EXAMINATION: VITAL SIGNS: T-max 97.7, pulse 72-81, blood pressure 96/64, 99/66, 102/64, respirations 20, O2 sat 99% on room air and 2 liters nasal cannula. HEENT: Head: Examination normocephalic, atraumatic. HEENT examination shows pinkish pale conjunctivae. Anicteric sclerae. No oropharyngeal lesion. NECK: No neck rigidity. CHEST: Kyphosis. LUNGS: Shows no crackles, rales or wheezing. CARDIOVASCULAR: S1, S2. Positive systolic murmur, right second intercostal space left sternal border, left second intercostal space. Positive left upper chest pacemaker. ABDOMEN: Soft. Positive bowel sound. GENITALIA: Male. RECTAL: Deferred. EXTREMITIES: Shows no pitting edema, no calf tenderness, no Homans' sign. MUSCULOSKELETAL: Shows a body mass index of 17.2. NEUROLOGIC: Cranial nerves II-XII limited. Gait examination were not tested. The patient is able to move upper and lower extremities without assistance. The patient has decreased body mass index. DIAGNOSTICS: 02/17/2017, WBC 14.9, hemoglobin/hematocrit 10.7 and 33.3, platelet 367. Granulocytes 80% segs. PT is 41, INR 3.63, PTT 42. Chemistry: Sodium 35, potassium 4.0, chloride 98, CO2 29, anion gap 12, BUN 24, creatinine 1.2, GFR greater than 60, glucose 90, calcium 8.3, magnesium 2.1. LFTs are normal. BNP is down to 1920, total protein 5.6, albumin 2.6. IMPRESSION AND PLAN: 1. Enterococcus faecalis bacteremia, sepsis, urinary tract infection and mitral valve endocarditis. 2. Severe gait dysfunction and deconditioning. 3. Cachexia. 4. Poor compliance and noncompliance. 5. Hypotension. 6. Coumadin-dependent atrial fibrillation. 7. Persistent refractory leukocytosis. 8. Granulocytosis. 9. Normocytic anemia. 10. Permanent pacemaker implant. 11. Prerenal kidney injury. 12. Possible and probable systolic versus diastolic congestive heart failure with elevated BNP. 13. Protein malnutrition and hypoalbuminemia. 14. Pneumonia. 15. Dyslipidemia. 16. Constipation. 17. Hypothyroidism. 18. Hypomagnesemia. 19. Chronic pain syndrome. 20. Hypokalemia. PLAN: At this time, the patient's IV furosemide will be discontinued. The patient's potassium will be decreased to 20 mg p.o. daily. The patient's current medications are as follows: Tylenol 650 q. 4 h. p.r.n., Mucomyst nebulizer 20% 4 mL to be given with Xopenex nebulizer 0.63 mg four times a day, amiodarone 200 mg at bedtime, ampicillin 2 g IV q. 6 h., Lipitor 10 mg at bedtime, Cepacol lozenges q. 2 h. p.r.n., Rocephin 2 g IV q. 12 h., Colace 100 mg three times a day, Zetia 10 mg daily, Flonase nasal spray 1 spray daily, Xalatan eye drops, Synthroid 125 mcg p.o. daily, magnesium oxide 400 mg twice a day, ProAmatine 10 mg three times a day, Percocet 2.5/325 one tablet q. 8 h. p.r.n., Protonix 40 mg twice a day, MiraLax 17 g twice a day for constipation, K-Dur decreased to 20 mEq once a day, TobraDex eye ointment to both eyes 4 times a day The patient has been extensively explained about the details of his medical condition, diagnosis. The patient's discharge plan was discussed with Infectious Disease and health and social care teacher, Bibi Toledo. According to the Infectious Disease, the patient's last blood cultures and most recent blood cultures have to be negative and sterile for at least 3-5 days prior to clearance for discharge to subacute rehab for continuation of at least 6 weeks of IV antibiotics for mitral valve endocarditis, which has been explained to the patient in layman's language. All questions concerned answered. In addition, all the patient's diagnostic test results, all the recommendation were also explained to the patient on a daily basis and also reinforced today in layman's language. All questions concerned answered. The patient has also been encouraged and re-advised to be more out of bed to chair and cooperate with physical therapy for ambulation therapy and gait training. Dictated and electronically signed, not read. Ash Scott MD
--- NOTE | 2017-02-17 17:05 | CP.PCM.PN ---
Subjective - Date & Time of Evaluation Date of Evaluation: 02/17/17 Time of Evaluation: 10:30 - Subjective Subjective: Resting comfortably in bed, not in distress, afebrile, no SOB, no chest pain, no abdominal pain, no diarrhea. Objective - Vital Signs/Intake and Output Vital Signs (last 24 hours): Temp Pulse Resp BP Pulse Ox 97.7 F 81 20 96/64 L 99 02/17/17 08:48 02/17/17 08:48 02/17/17 08:48 02/17/17 08:48 02/17/17 08:48 Intake and Output: 02/17/17 02/17/17 06:59 18:59 Intake Total 0 Output Total 200 Balance -200 - Medications Medications: Current Medications Acetaminophen (Tylenol 325mg Tab) 650 mg PO Q6H PRN PRN Reason: Pain, moderate (4-7) Last Admin: 02/16/17 16:18 Dose: 650 mg Acetylcysteine (Acetylcysteine 20%) 4 ml IH [id number] [facility] Last Admin: 02/17/17 08:15 Dose: 4 ml Amiodarone HCl (Cordarone) 200 mg PO HS [facility] Last Admin: 02/16/17 21:33 Dose: 200 mg Atorvastatin Calcium (Lipitor) 10 mg PO HS [facility] Last Admin: 02/16/17 21:43 Dose: 10 mg Benzocaine/Menthol (Cepacol Sore Throat) 1 cher MT Q2H PRN PRN Reason: Sore Throat Docusate Sodium (Colace) 100 mg PO TID [facility] Last Admin: 02/16/17 17:41 Dose: Not Given Ezetimibe (Zetia) 10 mg PO [facility] Last Admin: 02/16/17 21:33 Dose: 10 mg Fluticasone Propionate (Flonase) 1 actuation NS DAILY [facility] Last Admin: 02/16/17 10:57 Dose: 1 spr Furosemide (Lasix) 40 mg IVP DAILY [facility] Last Admin: 02/16/17 10:55 Dose: 40 mg Ampicillin 2 gm/ Sodium (Chloride) 100 mls @ 200 mls/hr IVPB Q6 [facility] PRN Reason: Protocol Stop: 03/02/17 18:01 Last Admin: 02/17/17 06:34 Dose: 200 mls/hr Ceftriaxone Sodium (Rocephin 2 Gm Ivpb) 2 gm in 100 mls @ 100 mls/hr IVPB Q12 [facility] PRN Reason: Protocol Stop: 02/25/17 22:01 Last Admin: 02/16/17 21:31 Dose: 100 mls/hr Latanoprost (Xalatan Opht) 0 ml OU HS [facility] Last Admin: 02/16/17 22:27 Dose: 2.5 ml Levalbuterol HCl (Xopenex) 0.63 mg IH [id number] [facility] Last Admin: 02/17/17 08:15 Dose: 0.63 mg Levothyroxine Sodium (Synthroid) 125 mcg PO ACB [facility] Last Admin: 02/16/17 08:47 Dose: 125 mcg Magnesium Oxide (Mag-Ox) 400 mg PO BID [facility] Last Admin: 02/16/17 17:42 Dose: 400 mg Midodrine (Proamatine) 10 mg PO TID [facility] Last Admin: 02/16/17 17:41 Dose: 10 mg Oxycodone/Acetaminophen (Percocet 2.5/325 Mg Tab) 1 tab PO Q8H PRN PRN Reason: Pain, severe (8-10) Last Admin: 02/16/17 21:43 Dose: 1 tab Pantoprazole Sodium (Protonix Ec Tab) 40 mg PO 0600,1600 [facility] Last Admin: 02/17/17 06:34 Dose: 40 mg Polyethylene Glycol (Miralax) 17 gm PO BID [facility] Last Admin: 02/16/17 17:42 Dose: Not Given Potassium Chloride (K-Dur 20 Meq Er Tab) 20 meq PO BID [facility] Last Admin: 02/16/17 17:40 Dose: 20 meq Tobramycin/Dexamethasone (Tobradex Opht Susp) 0 ml OU QID [facility] Last Admin: 02/16/17 22:25 Dose: 1 drop - Labs Labs: 02/17/17 06:00 02/17/17 06:00 PT 41.0 SECONDS (9.4-12.5) H 02/17/17 06:00 INR 3.63 (0.93-1.08) H* 02/17/17 06:00 APTT 41.8 Seconds (25.1-36.5) H 02/17/17 06:00 - Constitutional Appears: Chronically Ill - Head Exam Head Exam: NORMAL INSPECTION - ENT Exam ENT Exam: Mucous Membranes Moist - Neck Exam Neck Exam: absent: Meningismus - Respiratory Exam Respiratory Exam: Decreased Breath Sounds - Cardiovascular Exam Cardiovascular Exam: +S1, +S2 - GI/Abdominal Exam GI & Abdominal Exam: Soft. absent: Tenderness Assessment and Plan - Assessment and Plan (Free Text) Plan: Assessment sepsis due to E. faecalis bacteremia from mitral valve endocarditis S/P pacemaker placement elevated INR HTN hypothyroidism left hip surgery in 2016 atrial fibrillation Plan continue ampicillin and rocephin and will need at least 6 weeks of antibiotics; because of the large vegetation, consideration should be for replacement of the valve if it is feasible for the patient will continue to monitor clinically
[2017-02-17] MEDS: Oxycodone/Acetaminophen 2.5/325 mg Tab PO PRN (18:06)
[2017-02-17] MEDS: Latanoprost 2.5 ml Opht Soln OU SCH (21:55)
[2017-02-18] MEDS: Acetylcysteine 20% Inhal Soln (4ml) IH SCH ×4 (01:11→20:30)
[2017-02-18] MEDS: Levalbuterol 0.63 MG/3 ML Inhal Soln UD IH SCH ×4 (01:12→20:30)
[2017-02-18] MEDS: AMPicillin 2 GM in Sodium Chloride 0.9% 100 ML IVPB SCH ×3 (05:14→18:10)
[2017-02-18] MEDS: Pantoprazole 40 mg EC Tab PO SCH ×2 (05:15→15:43)
[2017-02-18 07:14] LABS: BASO # 0.01 K/mm3 (0.0-2.0); BASO % 0.1 % (0.0-3.0); EOS % 0.3 % (1.5-5.0); GRAN # 9.4 (1.4-6.5); GRAN % 78.4 % (50.0-68.0); HEMATOCRIT 31.6 % (42.0-52.0); LYMPH # 1.7 (1.2-3.4); LYMPH % 13.8 % (22.0-35.0); MEAN CELL VOLUME 92.9 fl (80.0-105.0); MEAN CORPUSCULAR HEMOGLOBIN 29.4 pg (25.0-35.0); MEAN CORPUSCULAR HGB CONC 31.6 g/dl (31.0-37.0); MEAN PLATELET VOLUME 9.1 fl (7.0-11.0); MONO # 0.9 (0.1-0.6); MONO % 7.4 % (1.0-6.0); RED CELL DISTRIBUTION WIDTH 15.1 % (11.5-14.5)
[2017-02-18 07:30] LABS: ALB/GLOB RATIO 0.9 (1.1-1.8); ALKALINE PHOSPHATASE 67 U/L (38-126); ALT/SGPT 32 U/L (7-56); AST/SGOT 30 U/L (17-59); BILIRUBIN,DIRECT 0.2 mg/dL (0.0-0.4); BILIRUBIN,TOTAL 0.2 mg/dL (0.2-1.3); BLOOD UREA NITROGEN 23 mg/dL (7-21); CALCIUM 8.3 mg/dL (8.4-10.5); CARBON DIOXIDE 30 mmol/L (21-33); CHLORIDE 99 mmol/L (98-107); GFR AFRICAN-AMERICAN > 60; GLUCOSE,RANDOM 87 mg/dL (70-110); MAGNESIUM 2.2 mg/dL (1.7-2.2); SODIUM 134 mmol/L (132-148); TOTAL PROTEIN 5.5 g/dL (5.8-8.3)
[2017-02-18 07:33] LABS: INR 3.41 (0.93-1.08); PARTIAL THROMBOPLASTIN TIME 41.4 Seconds (25.1-36.5)
[2017-02-18] MEDS: Oxycodone/Acetaminophen 2.5/325 mg Tab PO PRN ×2 (09:18→17:05)
[2017-02-18] MEDS: cefTRIAXone 2 GM IN NS 2 GM/100 ML BAG IVPB SCH ×2 (09:18→21:45)
[2017-02-18] MEDS: Potassium Chloride 20 mEq ER Tab PO SCH (09:18)
[2017-02-18] MEDS: Magnesium Oxide 400 mg Tab UD PO SCH ×2 (09:18→17:05)
[2017-02-18] MEDS: Fluticasone Nasal 50 mcg/Spray NS SCH (09:19)
[2017-02-18] MEDS: Tobramycin/Dexamethasone (Tobradex) Opth Sol (2.5 ml) OU SCH ×4 (09:19→21:47)
[2017-02-18] MEDS: POLYETHYLENE GLYCOL 3350 17 GM/Dose PACKET PO SCH ×2 (09:19→09:37)
[2017-02-18] MEDS: Levothyroxine 125 MCG TAB PO SCH (09:22)
--- NOTE | 2017-02-18 12:11 | PN ---
DATE: LOCATION: The patient is in [facility] in [place]. He is in room 363, bed 2. SUBJECTIVE: The patient was admitted with shortness of breath and patient had chest discomfort. The patient was evaluated in the emergency room and admitted. In the hospital, the patient was found to have endocarditis and congestive heart failure. His examination, the patient has been treated in the past for atherosclerotic heart disease, atrial fibrillation. The patient has had history of hypertension and patient also has history of glaucoma. Patient has history of syncopal episodes, cerebrovascular disease, hyperlipidemia, cardiac arrhythmia. PHYSICAL EXAMINATION: GENERAL: Patient was seen this morning, he is awake and alert, and answers all questions. He has no acute discomfort today. VITAL SIGNS: His pulse is 80, blood pressure 122/74, patient's O2 saturations are 99%. HEENT: The patient's examination of the head is normocephalic. He has always being emaciated patient's history. The patient's eyes are clear. The patient has blurred vision according to his description. LUNGS: Trachea is central. Breath sounds are vesicular. No adventitious sounds are heard. HEART: Normal sinus rhythm. Systolic murmur present. ABDOMEN: The patient's abdomen is soft. Liver and spleen not palpable. CENTRAL NERVOUS SYSTEM: No focal deficits are noted at this time. He moves all 4 limbs, but patient has a history of cerebrovascular disease. LABORATORY FINDINGS: His hemoglobin is 10.0, his total white count is 12,000. Chemistry, patient's BNP 2930, consistent with congestive heart failure. His BUN and creatinine are within normal range. GFR is greater than 60. The patient's cardiac evaluation showed that the patient has endocarditis involving the mitral valve. The patient also has cardiac pacemaker. The patient's medications consist of ampicillin 2 g q.6 hours. The patient is on respiratory treatment with Mucomyst. The patient gets amiodarone 200 mg daily. The patient is on Lipitor 10 mg daily. The patient is on Percocet for pain. Patient gets midodrine for cardiac hypotension. The patient is also on pantoprazole 40 mg daily. He is on Rocephin 2 g IV every 12 hours, Synthroid 125 mcg daily. Patient is also on tobramycin eye drops, TobraDex. The patient is on heart-healthy diet. His condition is stable clinically at this time. He is awaiting long-term antibiotic treatment for endocarditis. The patient will be placed in subacute and he is waiting for placement. Medications will be continued at this time. He will be followed up very closely. Prabhakar Smallwood MD
--- NOTE | 2017-02-18 17:55 | CP.PCM.PN ---
Subjective - Date & Time of Evaluation Date of Evaluation: 02/18/17 Time of Evaluation: 11:15 - Subjective Subjective: Comfortable, no fevers. Objective - Vital Signs/Intake and Output Vital Signs (last 24 hours): Temp Pulse Resp BP Pulse Ox 97.4 F L 80 18 109/71 98 02/18/17 06:00 02/18/17 06:00 02/18/17 06:00 02/18/17 06:00 02/18/17 06:00 Intake and Output: 02/18/17 02/18/17 06:59 18:59 Intake Total 760 Output Total 1150 Balance -390 - Medications Medications: Current Medications Acetaminophen (Tylenol 325mg Tab) 650 mg PO Q6H PRN PRN Reason: Pain, moderate (4-7) Last Admin: 02/18/17 00:18 Dose: 650 mg Acetylcysteine (Acetylcysteine 20%) 4 ml IH [id number] [facility] Last Admin: 02/18/17 08:12 Dose: 4 ml Amiodarone HCl (Cordarone) 200 mg PO HS [facility] Last Admin: 02/17/17 21:54 Dose: 200 mg Atorvastatin Calcium (Lipitor) 10 mg PO HS [facility] Last Admin: 02/17/17 21:54 Dose: 10 mg Benzocaine/Menthol (Cepacol Sore Throat) 1 cher MT Q2H PRN PRN Reason: Sore Throat Docusate Sodium (Colace) 100 mg PO TID [facility] Last Admin: 02/18/17 09:18 Dose: 100 mg Ezetimibe (Zetia) 10 mg PO HS [facility] Last Admin: 02/17/17 21:55 Dose: 10 mg Fluticasone Propionate (Flonase) 1 actuation NS DAILY [facility] Last Admin: 02/18/17 09:19 Dose: 1 spr Ampicillin 2 gm/ Sodium (Chloride) 100 mls @ 200 mls/hr IVPB Q6 [facility] PRN Reason: Protocol Stop: 03/02/17 18:01 Last Admin: 02/18/17 05:14 Dose: 200 mls/hr Ceftriaxone Sodium (Rocephin 2 Gm Ivpb) 2 gm in 100 mls @ 100 mls/hr IVPB Q12 [facility] PRN Reason: Protocol Stop: 02/25/17 22:01 Last Admin: 02/18/17 09:18 Dose: 100 mls/hr Latanoprost (Xalatan Opht) 0 ml OU HS [facility] Last Admin: 02/17/17 21:55 Dose: 2.5 ml Levalbuterol HCl (Xopenex) 0.63 mg IH [id number] [facility] Last Admin: 02/18/17 08:12 Dose: 0.63 mg Levothyroxine Sodium (Synthroid) 125 mcg PO ACB [facility] Last Admin: 02/18/17 09:22 Dose: 125 mcg Magnesium Oxide (Mag-Ox) 400 mg PO BID [facility] Last Admin: 02/18/17 09:18 Dose: 400 mg Midodrine (Proamatine) 10 mg PO TID [facility] Last Admin: 02/18/17 09:22 Dose: 10 mg Oxycodone/Acetaminophen (Percocet 2.5/325 Mg Tab) 1 tab PO Q8H PRN PRN Reason: Pain, severe (8-10) Last Admin: 02/18/17 09:18 Dose: 1 tab Pantoprazole Sodium (Protonix Ec Tab) 40 mg PO 0600,1600 [facility] Last Admin: 02/18/17 05:15 Dose: 40 mg Polyethylene Glycol (Miralax) 17 gm PO BID [facility] Last Admin: 02/18/17 09:37 Dose: Not Given Potassium Chloride (K-Dur 20 Meq Er Tab) 20 meq PO DAILY [facility] Last Admin: 02/18/17 09:18 Dose: 20 meq Tobramycin/Dexamethasone (Tobradex Opht Susp) 0 ml OU QID [facility] Last Admin: 02/18/17 09:19 Dose: 1 drop - Labs Labs: 02/18/17 06:50 02/18/17 06:50 PT 38.5 SECONDS (9.4-12.5) H 02/18/17 06:50 INR 3.41 (0.93-1.08) H 02/18/17 06:50 APTT 41.4 Seconds (25.1-36.5) H 02/18/17 06:50 - Constitutional Appears: Non-toxic - Head Exam Head Exam: NORMAL INSPECTION - ENT Exam ENT Exam: Mucous Membranes Moist - Neck Exam Neck Exam: absent: Meningismus - Respiratory Exam Respiratory Exam: Decreased Breath Sounds - Cardiovascular Exam Cardiovascular Exam: +S1, +S2 - GI/Abdominal Exam GI & Abdominal Exam: Soft. absent: Tenderness Assessment and Plan - Assessment and Plan (Free Text) Plan: Assessment sepsis due to E. faecalis bacteremia from mitral valve endocarditis S/P pacemaker placement elevated INR HTN hypothyroidism left hip surgery in 2016 atrial fibrillation Plan continue ampicillin and rocephin and will need at least 6 weeks of antibiotics ( from 02/14/17 which is the first negative blood cx day) - will need weekly ESR, CRP, CBC, CMP while on antibiotics and will get ESR and CRP today; because of the large vegetation, consideration should be for replacement of the valve if it is feasible for the patient, however, patient is a poor surgical candidate will continue to monitor clinically
[2017-02-18] MEDS: Benzocaine/Menthol (Cepacol) Lozenge MT PRN (21:45)
[2017-02-18] MEDS: Latanoprost 2.5 ml Opht Soln OU SCH (21:47)
[2017-02-19] MEDS: Oxycodone/Acetaminophen 2.5/325 mg Tab PO PRN (00:07)
[2017-02-19] MEDS: AMPicillin 2 GM in Sodium Chloride 0.9% 100 ML IVPB SCH ×5 (00:07→20:12)
[2017-02-19] MEDS: Acetylcysteine 20% Inhal Soln (4ml) IH SCH ×4 (02:30→14:02)
[2017-02-19] MEDS: Levalbuterol 0.63 MG/3 ML Inhal Soln UD IH SCH ×5 (02:30→20:20)
[2017-02-19] MEDS: Pantoprazole 40 mg EC Tab PO SCH ×2 (05:36→16:45)
[2017-02-19 06:09] LABS: BASO # 0.02 K/mm3 (0.0-2.0); BASO % 0.1 % (0.0-3.0); EOS # 0.1 (0.0-0.7); EOS % 0.4 % (1.5-5.0); GRAN # 11.25 (1.4-6.5); HEMATOCRIT 33.4 % (42.0-52.0); LYMPH # 1.8 (1.2-3.4); LYMPH % 12.9 % (22.0-35.0); MEAN CORPUSCULAR HEMOGLOBIN 28.7 pg (25.0-35.0); MEAN CORPUSCULAR HGB CONC 30.8 g/dl (31.0-37.0); MONO # 1.1 (0.1-0.6); MONO % 7.6 % (1.0-6.0); RED CELL DISTRIBUTION WIDTH 15.2 % (11.5-14.5); WHITE BLOOD COUNT 14.2 10^3/ul (4.5-11.0)
[2017-02-19 06:16] LABS: ALB/GLOB RATIO 0.9 (1.1-1.8); ALKALINE PHOSPHATASE 72 U/L (38-126); ALT/SGPT 32 U/L (7-56); AST/SGOT 28 U/L (17-59); BILIRUBIN,DIRECT 0.3 mg/dL (0.0-0.4); BILIRUBIN,TOTAL 0.3 mg/dL (0.2-1.3); BLOOD UREA NITROGEN 20 mg/dL (7-21); CALCIUM 8.5 mg/dL (8.4-10.5); CARBON DIOXIDE 28 mmol/L (21-33); CHLORIDE 101 mmol/L (98-107); GFR AFRICAN-AMERICAN > 60; GLUCOSE,RANDOM 81 mg/dL (70-110); MAGNESIUM 2.2 mg/dL (1.7-2.2); POTASSIUM 4.1 mmol/L (3.6-5.0); SODIUM 134 mmol/L (132-148); TOTAL PROTEIN 5.6 g/dL (5.8-8.3)
[2017-02-19 08:07] LABS: INR 2.93 (0.93-1.08)
[2017-02-19 08:08] LABS: PARTIAL THROMBOPLASTIN TIME 41.9 Seconds (25.1-36.5)
[2017-02-19] MEDS: Magnesium Oxide 400 mg Tab UD PO SCH ×2 (10:19→17:00)
[2017-02-19] MEDS: cefTRIAXone 2 GM IN NS 2 GM/100 ML BAG IVPB SCH ×2 (10:19→22:26)
[2017-02-19] MEDS: Potassium Chloride 20 mEq ER Tab PO SCH (10:19)
[2017-02-19] MEDS: Levothyroxine 125 MCG TAB PO SCH (10:19)
[2017-02-19] MEDS: Fluticasone Nasal 50 mcg/Spray NS SCH (10:20)
[2017-02-19] MEDS: Tobramycin/Dexamethasone (Tobradex) Opth Sol (2.5 ml) OU SCH ×4 (10:20→22:26)
--- NOTE | 2017-02-19 12:53 | PN ---
DATE: LOCATION: The patient is in [facility] in [place]. SUBJECTIVE: HE IS ALLERGIC TO EPINEPHRINE ACCORDING TO HIS HISTORY. Patient has past history of atherosclerotic heart disease, atrial fibrillation. Patient has history of cerebrovascular disease, syncope. Patient came to the hospital with congestive heart failure, was found to have pneumonia and bacterial endocarditis. PHYSICAL EXAMINATION: GENERAL: The patient is comfortable. He is conscious. He is able to answer all questions. VITAL SIGNS: Pulse is 82 today, blood pressure 110/80. Patient's O2 sat is 95% on room air. LUNGS: There is evidence of crepitations. Signs of pneumonia. HEART: Patient is in sinus rhythm. Patient has cardiac pacemaker. ABDOMEN: Soft. Liver and spleen not palpable. CENTRAL NERVOUS SYSTEM: The patient is conscious, oriented. No cranial nerve palsies are noted at this time. DIAGNOSES: As mentioned, pneumonia, bacterial endocarditis, congestive heart failure, and atrial fibrillation by history. MEDICATIONS: Mucomyst with respiratory treatment. The patient is on ampicillin and Rocephin. The patient is on amiodarone 200 mg daily. The patient is on Lipitor 10 mg daily. The patient is on Percocet p.r.n. for pain, Proamatine for low blood pressure, pantoprazole 40 mg daily. LABORATORY DATA: The patient's blood work this morning, the white count is 14,200. His hemoglobin 10.3. Differential shows shift to the left with 79% neutrophils. The patient's chemistry, the GFR is within normal limits. The patient's BNP is elevated to 4980 today. ASSESSMENT AND PLAN: The patient has a herd tester, Dr. Brayden Rivera, who is following up with his cardiac condition. The patient is seen by Infectious Disease for treatment of endocarditis. The patient is awaiting for transfer to subacute facility for long-term antibiotic treatment. The patient is clinically improving. We will follow up. Prabhakar Smallwood MD
[2017-02-19] MEDS: Benzocaine/Menthol (Cepacol) Lozenge MT PRN (15:12)
--- NOTE | 2017-02-19 17:06 | CP.PCM.PN ---
Subjective - Date & Time of Evaluation Date of Evaluation: 02/19/17 Time of Evaluation: 10:55 - Subjective Subjective: Comfortable, no fevers, not in distress. Objective - Vital Signs/Intake and Output Vital Signs (last 24 hours): Temp Pulse Resp BP Pulse Ox 97.8 F 82 20 110/80 95 02/18/17 17:58 02/18/17 21:45 02/18/17 17:58 02/18/17 21:45 02/18/17 17:58 Intake and Output: 02/19/17 02/19/17 06:59 18:59 Intake Total 420 Output Total 3 Balance 417 - Medications Medications: Current Medications Acetaminophen (Tylenol 325mg Tab) 650 mg PO Q6H PRN PRN Reason: Pain, moderate (4-7) Last Admin: 02/18/17 00:18 Dose: 650 mg Acetylcysteine (Acetylcysteine 20%) 4 ml IH [id number] [id number] Last Admin: 02/19/17 07:58 Dose: Not Given Amiodarone HCl (Cordarone) 200 mg PO HS [facility] Last Admin: 02/18/17 21:45 Dose: 200 mg Atorvastatin Calcium (Lipitor) 10 mg PO HS [facility] Last Admin: 02/18/17 21:45 Dose: 10 mg Benzocaine/Menthol (Cepacol Sore Throat) 1 cher MT Q2H PRN PRN Reason: Sore Throat Last Admin: 02/18/17 21:45 Dose: 1 cher Ezetimibe (Zetia) 10 mg PO HS [facility] Last Admin: 02/18/17 21:46 Dose: 10 mg Fluticasone Propionate (Flonase) 1 actuation NS DAILY [facility] Last Admin: 02/18/17 09:19 Dose: 1 spr Ceftriaxone Sodium (Rocephin 2 Gm Ivpb) 2 gm in 100 mls @ 100 mls/hr IVPB Q12 [facility] PRN Reason: Protocol Stop: 02/25/17 22:01 Last Admin: 02/18/17 21:45 Dose: 100 mls/hr Ampicillin 2 gm/ Sodium (Chloride) 100 mls @ 200 mls/hr IVPB Q4 [facility] PRN Reason: Protocol Stop: 03/10/17 12:01 Latanoprost (Xalatan Opht) 0 ml OU HS [facility] Last Admin: 02/18/17 21:47 Dose: 2.5 ml Levalbuterol HCl (Xopenex) 0.63 mg IH [id number] [facility] Last Admin: 02/19/17 07:58 Dose: Not Given Levothyroxine Sodium (Synthroid) 125 mcg PO ACB [facility] Last Admin: 02/18/17 09:22 Dose: 125 mcg Magnesium Oxide (Mag-Ox) 400 mg PO BID [facility] Last Admin: 02/18/17 17:05 Dose: 400 mg Midodrine (Proamatine) 10 mg PO TID [facility] Last Admin: 02/18/17 17:04 Dose: 10 mg Oxycodone/Acetaminophen (Percocet 2.5/325 Mg Tab) 1 tab PO Q8H PRN PRN Reason: Pain, severe (8-10) Last Admin: 02/19/17 00:07 Dose: 1 tab Pantoprazole Sodium (Protonix Ec Tab) 40 mg PO 0600,1600 [facility] Last Admin: 02/19/17 05:36 Dose: 40 mg Potassium Chloride (K-Dur 20 Meq Er Tab) 20 meq PO DAILY [facility] Last Admin: 02/18/17 09:18 Dose: 20 meq Tobramycin/Dexamethasone (Tobradex Opht Susp) 0 ml OU QID [facility] Last Admin: 02/18/17 21:47 Dose: 1 drop - Labs Labs: 02/19/17 05:45 02/19/17 05:45 PT 33.0 SECONDS (9.4-12.5) H 02/19/17 07:45 INR 2.93 (0.93-1.08) H 02/19/17 07:45 APTT 41.9 Seconds (25.1-36.5) H 02/19/17 07:45 - Constitutional Appears: Chronically Ill - Head Exam Head Exam: NORMAL INSPECTION - ENT Exam ENT Exam: Mucous Membranes Moist - Neck Exam Neck Exam: absent: Meningismus - Respiratory Exam Respiratory Exam: Decreased Breath Sounds - Cardiovascular Exam Cardiovascular Exam: +S1, +S2 - GI/Abdominal Exam GI & Abdominal Exam: Soft. absent: Tenderness Assessment and Plan - Assessment and Plan (Free Text) Plan: Assessment sepsis due to E. faecalis bacteremia from mitral valve endocarditis S/P pacemaker placement elevated INR HTN hypothyroidism left hip surgery in 2016 atrial fibrillation Plan continue ampicillin and rocephin and will need at least 6 weeks of antibiotics ( from 02/14/17 which is the first negative blood cx day) - will need weekly ESR, CRP, CBC, CMP while on antibiotics and will get ESR and CRP today; because of the large vegetation, valve replacement is a consideration if it is feasible for the patient, however, patient is a poor surgical candidate will continue to monitor clinically
[2017-02-19 18:26] VITALS: RESP 18
[2017-02-19] MEDS: Latanoprost 2.5 ml Opht Soln OU SCH (22:27)
[2017-02-19 23:43] VITALS: PULSE 80
[2017-02-20] MEDS: AMPicillin 2 GM in Sodium Chloride 0.9% 100 ML IVPB SCH ×4 (00:19→12:15)
[2017-02-20] MEDS: Levalbuterol 0.63 MG/3 ML Inhal Soln UD IH SCH ×3 (01:06→13:05)
[2017-02-20] MEDS: Acetylcysteine 20% Inhal Soln (4ml) IH SCH ×3 (01:06→13:05)
[2017-02-20] MEDS: Benzocaine/Menthol (Cepacol) Lozenge MT PRN (01:22)
[2017-02-20] MEDS: Oxycodone/Acetaminophen 2.5/325 mg Tab PO PRN ×2 (01:22→13:03)
[2017-02-20] MEDS: Pantoprazole 40 mg EC Tab PO SCH (06:26)
[2017-02-20 07:18] LABS: BASO # 0.01 K/mm3 (0.0-2.0); BASO % 0.1 % (0.0-3.0); EOS % 0.3 % (1.5-5.0); GRAN # 11.44 (1.4-6.5); GRAN % 78.5 % (50.0-68.0); HEMATOCRIT 34.5 % (42.0-52.0); LYMPH # 2.1 (1.2-3.4); LYMPH % 14.4 % (22.0-35.0); MEAN CELL VOLUME 92.2 fl (80.0-105.0); MEAN CORPUSCULAR HEMOGLOBIN 28.9 pg (25.0-35.0); MEAN CORPUSCULAR HGB CONC 31.3 g/dl (31.0-37.0); MEAN PLATELET VOLUME 8.9 fl (7.0-11.0); MONO % 6.7 % (1.0-6.0); RED CELL DISTRIBUTION WIDTH 15.3 % (11.5-14.5); WHITE BLOOD COUNT 14.6 10^3/ul (4.5-11.0)
[2017-02-20 07:34] LABS: INR 2.01 (0.93-1.08)
[2017-02-20 07:35] LABS: PARTIAL THROMBOPLASTIN TIME 38.6 Seconds (25.1-36.5)
[2017-02-20 07:51] LABS: ALB/GLOB RATIO 0.9 (1.1-1.8); ALKALINE PHOSPHATASE 78 U/L (38-126); ALT/SGPT 32 U/L (7-56); AST/SGOT 28 U/L (17-59); BILIRUBIN,DIRECT 0.3 mg/dL (0.0-0.4); BILIRUBIN,TOTAL 0.3 mg/dL (0.2-1.3); BLOOD UREA NITROGEN 18 mg/dL (7-21); CALCIUM 8.3 mg/dL (8.4-10.5); CARBON DIOXIDE 25 mmol/L (21-33); CHLORIDE 100 mmol/L (98-107); GFR AFRICAN-AMERICAN > 60; GLUCOSE,RANDOM 77 mg/dL (70-110); MAGNESIUM 2.1 mg/dL (1.7-2.2); POTASSIUM 3.8 mmol/L (3.6-5.0); SODIUM 133 mmol/L (132-148); TOTAL PROTEIN 5.6 g/dL (5.8-8.3)
[2017-02-20 08:09] VITALS: BP 122/76; TEMP 98.2; O2SAT 94
[2017-02-20] MEDS: Levothyroxine 125 MCG TAB PO SCH (08:44)
[2017-02-20] MEDS: Fluticasone Nasal 50 mcg/Spray NS SCH (09:48)
[2017-02-20] MEDS: Tobramycin/Dexamethasone (Tobradex) Opth Sol (2.5 ml) OU SCH ×2 (09:48→13:03)
[2017-02-20] MEDS: Potassium Chloride 20 mEq ER Tab PO SCH (09:54)
[2017-02-20] MEDS: Magnesium Oxide 400 mg Tab UD PO SCH (09:54)
[2017-02-20] MEDS: cefTRIAXone 2 GM IN NS 2 GM/100 ML BAG IVPB SCH (09:54)
--- NOTE | 2017-02-20 12:00 | CP.PCM.PN ---
Subjective - Date & Time of Evaluation Date of Evaluation: 02/20/17 Time of Evaluation: 10:25 - Subjective Subjective: Resting comfortably in bed, not in distress, afebrile, no SOB at rest, no diarrhea. Objective - Vital Signs/Intake and Output Vital Signs (last 24 hours): Temp Pulse Resp BP Pulse Ox 98.2 F 80 18 122/76 94 L 02/20/17 08:09 02/20/17 08:09 02/20/17 08:09 02/20/17 08:09 02/20/17 08:09 Intake and Output: 02/20/17 02/20/17 06:59 18:59 Intake Total 540 Balance 540 - Medications Medications: Current Medications Acetaminophen (Tylenol 325mg Tab) 650 mg PO Q6H PRN PRN Reason: Pain, moderate (4-7) Last Admin: 02/18/17 00:18 Dose: 650 mg Acetylcysteine (Acetylcysteine 20%) 4 ml IH [id number] [facility] Last Admin: 02/20/17 08:01 Dose: Not Given Amiodarone HCl (Cordarone) 200 mg PO HS [facility] Last Admin: 02/19/17 22:20 Dose: 200 mg Atorvastatin Calcium (Lipitor) 10 mg PO HS [facility] Last Admin: 02/19/17 22:24 Dose: 10 mg Benzocaine/Menthol (Cepacol Sore Throat) 1 cher MT Q2H PRN PRN Reason: Sore Throat Last Admin: 02/20/17 01:22 Dose: 1 cher Ezetimibe (Zetia) 10 mg PO HS [facility] Last Admin: 02/19/17 22:28 Dose: 10 mg Fluticasone Propionate (Flonase) 1 actuation NS DAILY [facility] Last Admin: 02/19/17 10:20 Dose: 1 spr Ceftriaxone Sodium (Rocephin 2 Gm Ivpb) 2 gm in 100 mls @ 100 mls/hr IVPB Q12 [facility] PRN Reason: Protocol Stop: 03/28/17 22:01 Last Admin: 02/19/17 22:26 Dose: 100 mls/hr Ampicillin 2 gm/ Sodium (Chloride) 100 mls @ 200 mls/hr IVPB Q4 [facility] PRN Reason: Protocol Stop: 04/05/17 12:01 Last Admin: 02/20/17 08:44 Dose: 200 mls/hr Latanoprost (Xalatan Opht) 0 ml OU HS [facility] Last Admin: 02/19/17 22:27 Dose: 2.5 ml Levalbuterol HCl (Xopenex) 0.63 mg IH [id number] [facility] Last Admin: 02/20/17 08:01 Dose: Not Given Levothyroxine Sodium (Synthroid) 125 mcg PO ACB [facility] Last Admin: 02/20/17 08:44 Dose: 125 mcg Magnesium Oxide (Mag-Ox) 400 mg PO BID [facility] Last Admin: 02/19/17 17:00 Dose: 400 mg Midodrine (Proamatine) 10 mg PO TID [facility] Last Admin: 02/19/17 17:00 Dose: 10 mg Oxycodone/Acetaminophen (Percocet 2.5/325 Mg Tab) 1 tab PO Q8H PRN PRN Reason: Pain, severe (8-10) Last Admin: 02/20/17 01:22 Dose: 1 tab Pantoprazole Sodium (Protonix Ec Tab) 40 mg PO 0600,1600 [facility] Last Admin: 02/20/17 06:26 Dose: 40 mg Potassium Chloride (K-Dur 20 Meq Er Tab) 20 meq PO DAILY [facility] Last Admin: 02/19/17 10:19 Dose: 20 meq Tobramycin/Dexamethasone (Tobradex Opht Susp) 0 ml OU QID [facility] Last Admin: 02/19/17 22:26 Dose: 1 drop Warfarin Sodium (Coumadin) 2 mg PO 1800 [facility] PRN Reason: Protocol - Labs Labs: 02/20/17 06:30 02/20/17 06:30 PT 22.4 SECONDS (9.4-12.5) H 02/20/17 06:30 INR 2.01 (0.93-1.08) H 02/20/17 06:30 APTT 38.6 Seconds (25.1-36.5) H 02/20/17 06:30 - Constitutional Appears: Cachectic, Chronically Ill - Head Exam Head Exam: NORMAL INSPECTION - ENT Exam ENT Exam: Mucous Membranes Moist - Neck Exam Neck Exam: absent: Meningismus - Respiratory Exam Respiratory Exam: Decreased Breath Sounds - Cardiovascular Exam Cardiovascular Exam: +S1, +S2 - GI/Abdominal Exam GI & Abdominal Exam: Soft. absent: Tenderness Assessment and Plan - Assessment and Plan (Free Text) Plan: Assessment sepsis due to E. faecalis bacteremia from mitral valve endocarditis S/P pacemaker placement elevated INR HTN hypothyroidism left hip surgery in 2016 atrial fibrillation Plan continue ampicillin and rocephin and will need at least 6 weeks of antibiotics ( from 02/14/17 which is the first negative blood cx day) - latest ESR, CRP from are still elevated - will need weekly ESR, CRP, CBC, CMP while on antibiotics because of the large vegetation, valve replacement is a consideration if it is feasible for the patient, however, patient is a poor surgical candidate will continue to monitor clinically
--- NOTE | 2017-02-20 14:04 | CARD ---
APPROVED REPORT EKG Measurement Heart [id number] [id number] <Conclusion> Electronic ventricular pacemaker
--- NOTE | 2017-02-20 15:42 | PN ---
DATE: 02/20/2017 CARDIOLOGY FOLLOWUP SUBJECTIVE: The patient is comfortable without shortness of breath. PHYSICAL EXAMINATION: VITAL SIGNS: Blood pressure 122/76 and heart rate is in the 80s. NECK: Negative JVD. LUNGS: Without rales. HEART: Reveals S1 and S2. EXTREMITIES: Without edema. LABORATORY DATA: White count is 14.6. Chemistries are unchanged. The ProBNP is 5890. IMPRESSION: 1. Subacute bacterial endocarditis of the mitral valve. 2. History of pacemaker placement. 3. History of chronic atrial fibrillation. 4. Sepsis. PLAN: Given these findings, the patient remains hemodynamically stable. The patient is currently on IV antibiotics. The patient is scheduled for TCU evaluation. We will continue the Coumadin with a close monitoring given his propensity for over anticoagulation and his multiple antibiotics at this time. Brayden Rivera MD
--- NOTE | 2017-02-21 07:05 | DS ---
FINAL PROGRESS NOTE AND DISCHARGE SUMMARY The patient is seen in room 364, bed 2. The patient is seen again lying in the bed, in no distress. The patient had an EKG done according to his request as per the nurses note that the patient requested an EKG which was done last night which was reviewed. EKG showed paced rhythm. No obvious change noted from the previous EKG. The patient's overnight nurse's notes were reviewed. PHYSICAL EXAMINATION: VITAL SIGNS: T-max 98.2; heart rate 80 to 90 beats per minute; blood pressure 122/76, 132/86; respiration 18; O2 saturation 94% to 97% on room air. HEAD: Examination is normocephalic, atraumatic. HEENT: Examination shows pinkish conjunctivae. Anicteric sclerae. No oropharyngeal lesion. No neck rigidity. CHEST: Examination kyphosis. Positive left upper chest pacemaker. LUNGS: Questionable decreased breath sounds at the left base. No crackles, rales or wheezing. Occasional rhonchi in the upper lung holman anteriorly, cleared up with coughing and deep breath. CARDIOVASCULAR: Examination S1, S2, regular rhythm. Positive systolic murmur, right second intercostal space, left sternal border, left second intercostal space. ABDOMEN: Soft. Positive bowel sounds. Positive right upper arm PICC line noted. GENITALIA: Male. RECTAL: Examination is deferred. EXTREMITIES: Lower extremity shows no pitting edema, no calf tenderness, no Homans' sign. MUSCULOSKELETAL: Examination shows a body mass index of 17.2. Motor strength is 5/5. Gait examination not tested. The patient prefers laying in the bed. The patient was strongly encouraged and reinforced and advised to be out of bed as much as possible and ambulate as much as possible. During the stay, there are multiple days when the patient refused and declined physical therapy and out of bed. DIAGNOSTICS: On 02/20, WBC 14.0, hemoglobin and hematocrit 10.8/34.5, platelet 355, granulocytes 78% segs. PT 22.4, INR 2.04. Sodium 133, potassium 3.8, chloride 100, CO2 of 25, BUN 18, creatinine 1.1, glucose 77, calcium 8.3, magnesium 2.1, BNP 5890, total protein 5.6, albumin 2.6. FINAL IMPRESSION, PLAN AND DISCHARGE DIAGNOSES: 1. Enterococcus faecalis bacteremia, sepsis. 2. Enterococcus faecalis urinary tract infection. 3. Most likely Enterococcus faecalis mitral valve endocarditis. 4. Noncompliance and poor compliance. 5. Deconditioning. 6. Status post left total hip replacement. 7. Atrial fibrillation with permanent pacemaker implant. 8. History of hypotension, now normotension. 9. Mild hypoxemia. 10. Leukocytosis with granulocytosis. 11. Normocytic anemia. 12. Coumadin dependent atrial fibrillation. 13. Congestive heart failure with elevated BNP of greater than 5800. 14. Protein malnutrition. 15. Hypoalbuminemia. 16. Questionable pneumonia. 17. Hypokalemia. 18. Dyslipidemia. 19. Hypomagnesemia. 20. Chronic pain syndrome. 21. History of hypertension. 22. Hypothyroidism. 23. Glaucoma. PLAN: At this time, the patient has expressed interest to be discharged to subacute rehab closer to his brother's residence in [place]. The patient at present has been medically cleared for discharge to be continued with IV antibiotic for about 6 weeks for mitral valve endocarditis. The patient is a poor surgical candidate due to the patient's advanced age and multiple comorbidity and cachectic status. The patient's current present medications as of today are Mucomyst nebulizer treatment every 6 hours 4 mL 20%; ampicillin 2 g IV q.4 hours for 6 weeks; Cepacol lozenges q.2 hours p.r.n.; amiodarone 200 mg daily; Coumadin started at 2 mg daily; Flonase nasal spray 1 spray to each nostril daily; K-Dur 20 mEq p.o. daily; Lipitor 10 mg daily; magnesium oxide 400 mg twice a day; Percocet 2.5/325 one tablet q.8 hours p.r.n.; ProAmatine 10 mg three times a day; Protonix 40 mg daily; Rocephin 2 g IV q.12 hours for 6 weeks; Synthroid 125 mcg daily; the patient is also started on Lasix 20 mg daily; Tylenol 650 q. 6 p.r.n.; Xalatan eye drops OU at bedtime; Zetia 10 mg daily. The patient's discharge medications are Synthroid 125 mcg daily; Flonase nasal spray 1 puff daily; Zetia 10 mg daily; Colace 100 mg daily p.r.n.; Lumigan eye drops at bedtime OU; Lipitor 10 mg at bedtime; amiodarone 200 or 300 mg h.s.; Percocet 2.5/325 one tablet q.4 hours p.r.n.; Rocephin 2 g IV q. 12 for 6 weeks; Coumadin 2 mg daily; K-Dur 20 mEq daily; Protonix 40 mg once or twice a day; ProAmatine 10 mg three times a day; magnesium oxide 400 mg twice a day; Xopenex nebulizer 0.63 mg every 6 hours; Xalatan eye drops OU at bedtime; Lasix 20 mg p.o. daily; TobraDex eye ointment to both eyes q.i.d.; Cepacol lozenges q. 2 hours p.r.n.; ampicillin 2 g IV q.4 hours for 6 weeks; Mucomyst nebulizer treatment every 6 hours with Xopenex nebulizer treatment; Tylenol 650 q. 6 p.r.n. During this hospitalization, the patient was explained about his diagnosis, treatment plan, treatment option, continuation of long-term IV antibiotics for 6 weeks for the treatment of his medical condition. The patient was explained about his diagnosis, test results, recommendation by all the physician involved in the care of the patient. All questions and concerns answered to the patient's satisfaction. The patient's case referred to social media assistant, case management for discharge planning. The patient has been cleared for discharge to subacute rehab for continuation of the IV antibiotics. The patient had a right upper extremity PICC line placement. The patient is medically cleared for discharge today. Time spent in the entire discharge process more than 45 minutes. Dictated and electronically signed, not read. Ash Scott MD
--- NOTE | 2017-02-21 07:33 | PN ---
ADDENDUM DATE: 02/15/2017 SUBJECTIVE: The patient was seen today on rounds with This is an addendum to the progress note done by for 02/15/2017. The patient is seen in room 363, bed 2. The patient's vital signs, diagnostic data and all reports were reviewed, and the patient was examined with the claim review medical director. Please refer to the complete progress note for further details to the progress note of of February 15, 2017 IMPRESSION AND PLAN: 1. Enterococcus faecalis bacteremia, sepsis and urinary tract infection with gram-positive cocci bacteremia and sepsis. 2. Mitral valve endocarditis. 3. Gait dysfunction. 4. Poor compliance. 5. Severe mitral regurgitation. 6. Moderate aortic regurgitation. 7. Transient hypotension. 8. History of hypertension. 9. Leukocytosis with granulocytosis and normocytic anemia. 10. Iatrogenic coagulopathy. 11. Coumadin dependent atrial fibrillation. 12. Questionable congestive heart failure with elevated BNP. 13. Hypoalbuminemia. 14. Prerenal kidney injury. 15. Microscopic hematuria, bacteriuria. 16. Enterococcus faecalis bacteremia, sepsis and Enterococcus faecalis urinary tract infection. 17. Constipation. 18. Questionable functional quadriplegia. 19. Poor compliance. 20. Resolving right lower lobe infiltrate and pneumonia. 21. Cardiomegaly. 22. Permanent pacemaker implant. 23. Status post right upper extremity PICC line placement. 24. Generalized osteopenia and thoracic spondylosis. 25. Chronic interstitial lung disease. 26. Thoracolumbar spondylosis and facet hypertrophic arthrosis. 27. Generalized osteopenia. 28. Left hip hemiarthroplasty. 29. Right ventricular systolic pressure of 48 mmHg. 30. Left ventricular hypertrophy with left ventricular ejection fraction of 55%. 31. Moderately dilated left atrium with mildly dilated right atrium. 32. Mildly thickened aortic valve with moderate aortic regurgitation. 33. Thickened mitral valve leaflet with echogenic mobile structure attached to the posterior mitral valve leaflet towards the left atrium consistent with vegetation. 34. Another small vegetation attached to the anterior mitral valve leaflet near the root of the direction of the mitral regurgitation jet. 35. Eccentrically directed mitral regurgitation jet. 36. Severe mitral regurgitation. 37. Thickened tricuspid valve leaflet with mild tricuspid regurgitation. 38. Thickened pulmonic valve with mild pulmonic valve regurgitation. 39. Permanent pacemaker implant in paced rhythm. 40. Subacute bacterial endocarditis with Enterococcus faecalis bacteremia and sepsis. 41. Right upper extremity PICC line placement. 42. Coumadin dependent atrial fibrillation. 43. Cachexia with decreased body mass index. 44. Diastolic congestive heart failure with elevated BNP. 45. Bilateral renal cyst. 46. Hypothyroidism. 47. Glaucoma. 48. Constipation. PLAN: At this time, the patient is to be continued on the therapeutic intervention as per the MAR of today and as per recommendation by Infectious Disease and Cardiology. Dictated and electronically signed, not read. Ash Scott MD MTDD
== END 2017-02-20 15:40 | DRG 871 ==
LOC: ED 08:27 → ERH 11:21 → 3RSO 12:51 → 3RNO 02-14 23:18
PROVIDERS: ADMIT Internal Medicine; ATTEND Internal Medicine
PROC: B246ZZ4 Ultrasonography of Right and Left Heart, Transesophageal (ICD-10-PCS; principal; 2017-02-14 09:00)
PROC: 02HV33Z Insertion of Infusion Device into Superior Vena Cava, Percutaneous Approach (ICD-10-PCS; 2017-02-15)
PROC: B54MZZA Ultrasonography of Right Upper Extremity Veins, Guidance (ICD-10-PCS; 2017-02-15)
DX: A41.81 Sepsis due to Enterococcus (principal); I33.0 Acute and subacute infective endocarditis; J18.9 Pneumonia, unspecified organism; E46 Unspecified protein-calorie malnutrition; R64 Cachexia; I11.0 Hypertensive heart disease with heart failure; R53.2 Functional quadriplegia; I50.40 Unspecified combined systolic (congestive) and diastolic (congestive) heart failure; I42.9 Cardiomyopathy, unspecified; I48.2 Chronic atrial fibrillation; I08.3 Combined rheumatic disorders of mitral, aortic and tricuspid valves; N39.0 Urinary tract infection, site not specified; J98.11 Atelectasis; Z68.1 Body mass index [BMI] 19.9 or less, adult; C61 Malignant neoplasm of prostate; D64.9 Anemia, unspecified; L89.511 Pressure ulcer of right ankle, stage 1; E03.9 Hypothyroidism, unspecified; K31.4 Gastric diverticulum; K59.00 Constipation, unspecified; Z96.642 Presence of left artificial hip joint; H40.9 Unspecified glaucoma; H91.91 Unspecified hearing loss, right ear; Y95 Nosocomial condition; M48.061 Spinal stenosis, lumbar region without neurogenic claudication; L40.9 Psoriasis, unspecified; E78.00 Pure hypercholesterolemia, unspecified; E87.6 Hypokalemia; E78.1 Pure hyperglyceridemia; M17.0 Bilateral primary osteoarthritis of knee; N28.1 Cyst of kidney, acquired; H10.9 Unspecified conjunctivitis; R09.02 Hypoxemia; M47.815 Spondylosis without myelopathy or radiculopathy, thoracolumbar region; G31.9 Degenerative disease of nervous system, unspecified; R31.29 Other microscopic hematuria; G89.4 Chronic pain syndrome; R79.1 Abnormal coagulation profile; Z79.01 Long term (current) use of anticoagulants; Z86.73 Personal history of transient ischemic attack (TIA), and cerebral infarction without residual deficits; Z95.0 Presence of cardiac pacemaker; Z91.19 Patient's noncompliance with other medical treatment and regimen